=== PATIENT | male | born 1965 | race African-American/Black ===

== ENCOUNTER 2016-05-24 23:02 | Inpatient (IN) | payer OTHER ==
[~2016-05-24] VITALS: Ht 177.8 cm; Wt 85.1 kg
[~2016-05-24 23:02] MED LIST: [UNRECOGNIZED DRUG - CODE] PO
[2016-05-24] MEDS ORDERED: LORA2TAB80 PO (23:31)
[2016-05-24] MEDS ORDERED: CARV3 PO (23:31)
[2016-05-24] MEDS ORDERED: LISI-660 PO (23:31)
[2016-05-24 23:50] LABS: BASOPHILS # (AUTO) 0.01 K/uL (0.00-0.20); BASOPHILS % (AUTO) 0.1 % (0.0-2.0); EOSINOPHILS # (AUTO) 0.05 K/uL (0.00-0.70); EOSINOPHILS % (AUTO) 0.54 % (1.0-6.0); HEMATOCRIT 44.7 % (41-53); HEMOGLOBIN 14.8 g/dL (13.5-17.5); LYMPHOCYTES # (AUTO) 1.9 K/uL (1.0-4.8); LYMPHOCYTES % (AUTO) 21.1 % (22.0-44.0); MEAN CORPUSCULAR HEMOGLOBIN 27.4 pg (26.0-34.0); MEAN CORPUSCULAR HGB CONC 33.1 G/dL (31.0-37.0); MEAN CORPUSCULAR VOLUME 83 fL (80-100); MONOCYTES # (AUTO) 0.6 K/uL (0.1-1.0); MONOCYTES % (AUTO) 6.1 % (2.0-9.0); NEUTROPHILS # (AUTO) 6.5 K/uL (1.8-7.7); NEUTROPHILS % (AUTO) 72.2 % (40.0-70.0); PLATELET COUNT (AUTO) 198 K/uL (150-450); RED BLOOD CELL COUNT(AUTO) 5.39 MIL/uL (4.50-5.90); RED CELL DISTRIBUTION WIDTH 20.4 % (11.5-14.5)
[2016-05-24 23:59] LABS: ANION GAP 11 mmol/L (8-16); CARBON DIOXIDE 24 mmol/L (22-29); CHLORIDE 95 mmol/L (98-107); CREATININE 1.27 mg/dL (0.60-1.30); GLOMERULAR FILTR. RATE CALC > 60 mL/min (>60); SODIUM SERUM 130 mmol/L (136-145); UREA NITROGEN, BLOOD 20 mg/dL (7-18)
[2016-05-25 00:03] LABS: INR 1.1 (0.9-1.1); PROTHROMBIN TIME 11.3 SEC (9.4-11.6)
[2016-05-25 00:04] LABS: RBC MORPHOLOGY COMMENT ABNORMAL RBC MORPH
[2016-05-25 00:05] LABS: ALANINE AMINOTRANSFERASE 37 U/L (12-78); ALBUMIN 3.5 g/dL (3.4-5.0); ASPARTATE AMINOTRANSFERASE 47 U/L (15-37); BILIRUBIN,TOTAL 1.7 mg/dL (0.1-1.0); CREATINE KINASE, TOTAL 74 U/L (39-308); TOTAL PROTEIN, SERUM 8.4 g/dL (6.4-8.2)
[2016-05-25 00:14] LABS: B-TYPE NATRIURETIC PEPTIDE 1600 pg/mL (0-100)
[2016-05-25 00:26] LABS: APPEARANCE,URINE CLEAR (CLEAR); GLUCOSE, URINE (UA) NEGATIVE (NEGATIVE); KETONES,URINE NEGATIVE (NEGATIVE); LEUKOCYTE ESTERASE ,URINE NEGATIVE (NEGATIVE); PH,URINE 5.5 (5.0-8.0); PROTEIN,URINE SEE CONFIRM (NEGATIVE)
[2016-05-25 00:32] LABS: ADD UA MICROSCOPIC YES; OCCULT BLOOD,URINE NEGATIVE (NEGATIVE); SULFOSALICYLIC ACID,URINE 3+ (Negative)
[2016-05-25 00:33] LABS: RBC,URINE 0-2 /HPF (0-2); WBC,URINE 0-2 /HPF (0-5)
[2016-05-25] MEDS ORDERED: NITROGLYCERIN 2% (1 GM=INCH) PACKET TP ONE (00:45)
[2016-05-25] MEDS ORDERED: ASPIRIN 325 MG EC TABLET PO ONE (00:45)
[2016-05-25] MEDS ORDERED: FUROSEMIDE 40 MG/4 ML VIAL IVP ONE (01:00)
[2016-05-25] MEDS ORDERED: LORazepam 2 MG/ML VIAL IVP ONE (01:15)
[2016-05-25] MEDS ORDERED: 0.9% SODIUM CHLORIDE 10 ML SYRINGE IVP PRN (01:45)
[2016-05-25] MEDS ORDERED: ONDANSETRON HCL 4 MG/2 ML VIAL IVP PRN ×2 (01:45→08:45)
[2016-05-25] MEDS ORDERED: ACETAMINOPHEN 325 MG TABLET PO PRN ×2 (01:45→08:45)
[2016-05-25 02:12] VITALS: BP 144/70
[2016-05-25] MEDS ORDERED: INFLUENZA VIRUS VACCINE QVS 2016-17 (3YR+)/PF 60 MCG/0.5 ML SYRINGE IM ONE (04:00)
[2016-05-25] MEDS ORDERED: PNEUMOCOCCAL VACCINE POLYVALENT 0.5 ML VIAL [PPSV23] IM ONE (04:00)
[2016-05-25 04:23] VITALS: BP 125/64
[2016-05-25 07:47] VITALS: BP 126/75
[2016-05-25] MEDS ORDERED: MAGNESIUM HYDROXIDE SUSPENSION 30 ML UDCUP PO PRN (08:45)
[2016-05-25] MEDS ORDERED: BISACODYL 10 MG RECTAL RECTAL SUPPOSITORY PR PRN (08:45)
[2016-05-25] MEDS ORDERED: HYDROCODONE/ACETAMINOPHEN 5-325 MG TABLET PO PRN (08:45)
[2016-05-25] MEDS ORDERED: ZOLPIDEM TARTRATE 5 MG TABLET PO PRN (08:45)
[2016-05-25] MEDS ORDERED: ALBUTEROL SULFATE 2.5 MG/0.5 ML NEB SOLUTION NEB PRN (08:45)
[2016-05-25] MEDS ORDERED: IPRATROPIUM BROMIDE 0.5 MG/2.5 ML NEB SOLUTION NEB PRN (08:45)
[2016-05-25] MEDS: CARVEDILOL 3.125 MG TABLET PO SCH (09:05)
[2016-05-25] MEDS: PANTOPRAZOLE SODIUM 40 MG DR TABLET PO SCH (09:05)
[2016-05-25] MEDS: OxyCODONE HCL/ACETAMINOPHEN 5-325 MG TABLET PO PRN ×3 (09:05→19:56)
[2016-05-25] MEDS: DOCUSATE SODIUM 100 MG CAPSULE PO SCH ×2 (09:05→19:52)
[2016-05-25] MEDS: LISINOPRIL 5 MG TABLET PO SCH (09:05)
[2016-05-25] MEDS: BUMETANIDE 0.25 MG/ML 4 ML VIAL IVP SCH ×2 (10:08→19:57)
[2016-05-25 11:37] VITALS: BP 110/76
[2016-05-25] MEDS: LORazepam 1 MG TABLET PO PRN ×2 (11:43→21:31)
[2016-05-25] MEDS: NICOTINE 21 MG/24 HOUR PATCH TD SCH (11:43)
[2016-05-25] MEDS: HEPARIN SODIUM,PORCINE 5,000 UNITS/ML VIAL SQ SCH ×2 (16:30→23:27)
[2016-05-25 16:36] VITALS: BP 120/78
[2016-05-25 20:17] VITALS: BP 110/72
[2016-05-26] VITALS (7 sets, daily range): BP systolic 102–109; BP diastolic 53–76
[2016-05-26] MEDS: OxyCODONE HCL/ACETAMINOPHEN 5-325 MG TABLET PO PRN ×4 (01:11→20:15)
[2016-05-26 06:25] LABS: BASOPHILS # (AUTO) 0.11 K/uL (0.00-0.20); BASOPHILS % (AUTO) 1.7 % (0.0-2.0); EOSINOPHILS # (AUTO) 0.08 K/uL (0.00-0.70); EOSINOPHILS % (AUTO) 1.21 % (1.0-6.0); HEMATOCRIT 40.7 % (41-53); HEMOGLOBIN 13.5 g/dL (13.5-17.5); LYMPHOCYTES # (AUTO) 1.2 K/uL (1.0-4.8); LYMPHOCYTES % (AUTO) 18.9 % (22.0-44.0); MEAN CORPUSCULAR HEMOGLOBIN 27.8 pg (26.0-34.0); MEAN CORPUSCULAR HGB CONC 33.2 G/dL (31.0-37.0); MEAN CORPUSCULAR VOLUME 84 fL (80-100); MONOCYTES # (AUTO) 0.6 K/uL (0.1-1.0); MONOCYTES % (AUTO) 9.2 % (2.0-9.0); NEUTROPHILS # (AUTO) 4.5 K/uL (1.8-7.7); NEUTROPHILS % (AUTO) 69.1 % (40.0-70.0); PLATELET COUNT (AUTO) 153 K/uL (150-450); RED BLOOD CELL COUNT(AUTO) 4.86 MIL/uL (4.50-5.90); WHITE BLOOD COUNT (AUTO) 6.5 K/uL (4.5-11.0)
[2016-05-26 07:01] LABS: BILIRUBIN,TOTAL 2.1 mg/dL (0.1-1.0); CALCIUM, TOTAL 8.8 mg/dL (8.8-10.5); CREATININE 1.63 mg/dL (0.60-1.30); POTASSIUM 4.8 mmol/L (3.5-5.1); TOTAL PROTEIN, SERUM 7.3 g/dL (6.4-8.2)
[2016-05-26 07:54] LABS: RBC MORPHOLOGY COMMENT ABNORMAL RBC MORPH
[2016-05-26] MEDS: DOCUSATE SODIUM 100 MG CAPSULE PO SCH ×2 (08:19→20:15)
[2016-05-26] MEDS: NICOTINE 21 MG/24 HOUR PATCH TD SCH (08:22)
[2016-05-26] MEDS: HEPARIN SODIUM,PORCINE 5,000 UNITS/ML VIAL SQ SCH ×3 (08:22→23:44)
[2016-05-26] MEDS: LISINOPRIL 5 MG TABLET PO SCH (08:23)
[2016-05-26] MEDS: PANTOPRAZOLE SODIUM 40 MG DR TABLET PO SCH (08:23)
[2016-05-26] MEDS: CARVEDILOL 3.125 MG TABLET PO SCH (08:23)
[2016-05-26] MEDS ORDERED: BUMETANIDE 0.25 MG/ML 4 ML VIAL IVP SCH (09:00)
[2016-05-26] MEDS: LACTOBACILLUS ACIDOPHILUS/BULGARICUS GRANULES PACKET PO SCH ×2 (16:02→20:14)
[2016-05-26] MEDS: LORazepam 1 MG TABLET PO PRN ×2 (16:03→23:44)
[2016-05-27] VITALS (7 sets, daily range): BP systolic 101–112; BP diastolic 58–79
[2016-05-27] MEDS: OxyCODONE HCL/ACETAMINOPHEN 5-325 MG TABLET PO PRN ×3 (04:46→20:18)
[2016-05-27] MEDS: HEPARIN SODIUM,PORCINE 5,000 UNITS/ML VIAL SQ SCH ×3 (08:07→23:42)
[2016-05-27] MEDS: LACTOBACILLUS ACIDOPHILUS/BULGARICUS GRANULES PACKET PO SCH ×3 (08:08→20:18)
[2016-05-27] MEDS: NICOTINE 21 MG/24 HOUR PATCH TD SCH (08:08)
[2016-05-27] MEDS: BUMETANIDE 1 MG TABLET PO SCH (08:08)
[2016-05-27] MEDS: CARVEDILOL 3.125 MG TABLET PO SCH (08:08)
[2016-05-27] MEDS: PANTOPRAZOLE SODIUM 40 MG DR TABLET PO SCH (08:09)
[2016-05-27] MEDS: DOCUSATE SODIUM 100 MG CAPSULE PO SCH ×2 (08:09→20:18)
[2016-05-27] MEDS: LISINOPRIL 5 MG TABLET PO SCH (08:10)
[2016-05-27] MEDS: LORazepam 1 MG TABLET PO PRN (21:50)
[2016-05-28 04:53] VITALS: BP 102/83
[2016-05-28 07:51] VITALS: BP 114/78
[2016-05-28] MEDS: HEPARIN SODIUM,PORCINE 5,000 UNITS/ML VIAL SQ SCH (08:31)
[2016-05-28] MEDS: NICOTINE 21 MG/24 HOUR PATCH TD SCH (08:31)
[2016-05-28] MEDS: PANTOPRAZOLE SODIUM 40 MG DR TABLET PO SCH (08:31)
[2016-05-28] MEDS: LACTOBACILLUS ACIDOPHILUS/BULGARICUS GRANULES PACKET PO SCH (08:31)
[2016-05-28] MEDS: LISINOPRIL 5 MG TABLET PO SCH (08:32)
[2016-05-28] MEDS: BUMETANIDE 1 MG TABLET PO SCH (08:32)
[2016-05-28] MEDS: DOCUSATE SODIUM 100 MG CAPSULE PO SCH (08:32)
[2016-05-28] MEDS: OxyCODONE HCL/ACETAMINOPHEN 5-325 MG TABLET PO PRN (08:32)
[2016-05-28] MEDS: CARVEDILOL 3.125 MG TABLET PO SCH (08:33)
== END 2016-05-28 11:20 | disposition home or self-care (01) | DRG 194 ==
LOC: EMS 23:03 → 5S 05-25 00:06
PROVIDERS: ADMIT Hospitalist; ATTEND Hospitalist
DX: I11.0 Hypertensive heart disease with heart failure (principal); Z99.81 Dependence on supplemental oxygen; E87.1 Hypo-osmolality and hyponatremia; I48.91 Unspecified atrial fibrillation; F17.210 Nicotine dependence, cigarettes, uncomplicated; J44.9 Chronic obstructive pulmonary disease, unspecified; I50.23 Acute on chronic systolic (congestive) heart failure; D64.9 Anemia, unspecified; Z71.6 Tobacco abuse counseling; Z95.810 Presence of automatic (implantable) cardiac defibrillator; Z79.899 Other long term (current) drug therapy; Z28.82 Immunization not carried out because of caregiver refusal
CPT/HCPCS: 87040; 87081; 90471; 93005; 94640; 96374; 96375; 99285; J1644; J1940; J2060; J3490

== ENCOUNTER 2016-11-03 00:28 | Inpatient (IN) | payer OTHER ==
[2016-11-03] VITALS (8 sets, daily range): BP systolic 100–130; BP diastolic 74–88
[~2016-11-03] VITALS: Ht 177.8 cm; Wt 82.6 kg
[~2016-11-03 00:28] MED LIST changes: +CARV3 PO; +FURO40 PO; +LISI-660 PO; +LORA2TAB80 PO; +PROZ10 PO; +SPIR25 PO; +TYL3 PO; +WARF7.5 PO
[2016-11-03] MEDS ORDERED: ASPIRIN 81 MG CHEWABLE TABLET PO ONE (01:00)
[2016-11-03] MEDS ORDERED: LORazepam 2 MG/ML VIAL IVP ONE (01:15)
[2016-11-03] MEDS ORDERED: MORPHINE SULFATE 4 MG/ML SYRINGE IVP ONE (01:15)
[2016-11-03] MEDS ORDERED: ONDANSETRON HCL 4 MG/2 ML VIAL IVP ONE (01:15)
[2016-11-03 01:19] LABS: BASOPHILS # (AUTO) 0.02 K/uL (0.00-0.20); BASOPHILS % (AUTO) 0.3 % (0.0-2.0); EOSINOPHILS # (AUTO) 0.05 K/uL (0.00-0.70); EOSINOPHILS % (AUTO) 0.59 % (1.0-6.0); HEMATOCRIT 39.9 % (41-53); HEMOGLOBIN 12.8 g/dL (13.5-17.5); LYMPHOCYTES % (AUTO) 11.6 % (22.0-44.0); MEAN CORPUSCULAR HEMOGLOBIN 28.6 pg (26.0-34.0); MEAN CORPUSCULAR HGB CONC 32.1 G/dL (31.0-37.0); MEAN CORPUSCULAR VOLUME 89 fL (80-100); MONOCYTES # (AUTO) 0.9 K/uL (0.1-1.0); MONOCYTES % (AUTO) 11.3 % (2.0-9.0); NEUTROPHILS # (AUTO) 6.3 K/uL (1.8-7.7); NEUTROPHILS % (AUTO) 76.3 % (40.0-70.0); PLATELET COUNT (AUTO) 162 K/uL (150-450); RED BLOOD CELL COUNT(AUTO) 4.48 MIL/uL (4.50-5.90); WHITE BLOOD COUNT (AUTO) 8.3 K/uL (4.5-11.0)
[2016-11-03 01:29] LABS: ANION GAP 17 mmol/L (8-16); CALCIUM, TOTAL 8.3 mg/dL (8.8-10.5); CARBON DIOXIDE 20 mmol/L (22-29); CHLORIDE 97 mmol/L (98-107); CREATININE 1.45 mg/dL (0.60-1.30); GLOMERULAR FILTR. RATE CALC > 60 mL/min (>60); POTASSIUM 3.7 mmol/L (3.5-5.1); SODIUM SERUM 134 mmol/L (136-145); UREA NITROGEN, BLOOD 17 mg/dL (7-18)
[2016-11-03 01:35] LABS: CREATINE KINASE, TOTAL 72 U/L (39-308)
[2016-11-03 01:36] LABS: ALANINE AMINOTRANSFERASE 467 U/L (12-78); ALBUMIN 3.5 g/dL (3.4-5.0); ASPARTATE AMINOTRANSFERASE 697 U/L (15-37); BILIRUBIN,TOTAL 2.1 mg/dL (0.1-1.0); TOTAL PROTEIN, SERUM 7.6 g/dL (6.4-8.2)
[2016-11-03 01:40] LABS: B-TYPE NATRIURETIC PEPTIDE 2040 pg/mL (0-100)
[2016-11-03] MEDS ORDERED: FUROSEMIDE 40 MG/4 ML VIAL IVP ONE (01:45)
[2016-11-03] MEDS ORDERED: 0.9% SODIUM CHLORIDE 10 ML SYRINGE IVP PRN (01:45)
[2016-11-03] MEDS ORDERED: ONDANSETRON HCL 4 MG/2 ML VIAL IVP PRN (01:45)
[2016-11-03] MEDS ORDERED: ACETAMINOPHEN 325 MG TABLET PO PRN ×2 (01:45→09:45)
[2016-11-03 01:55] LABS: RBC MORPHOLOGY COMMENT ABNORMAL RBC MORPH
[2016-11-03] MEDS ORDERED: MAGNESIUM HYDROXIDE SUSPENSION 30 ML UDCUP PO PRN (09:45)
[2016-11-03] MEDS ORDERED: ALBUTEROL SULFATE 2.5 MG/0.5 ML NEB SOLUTION NEB PRN (09:45)
[2016-11-03] MEDS: MORPHINE SULFATE 2 MG/ML SYRINGE IVP PRN ×3 (10:09→23:03)
[2016-11-03 10:58] LABS: GLUCOSE, URINE (UA) NEGATIVE (NEGATIVE); KETONES,URINE NEGATIVE (NEGATIVE); LEUKOCYTE ESTERASE ,URINE NEGATIVE (NEGATIVE); OCCULT BLOOD,URINE NEGATIVE (NEGATIVE); PH,URINE 5.5 (5.0-8.0); PROTEIN,URINE POS 1+ (NEGATIVE)
[2016-11-03 11:00] LABS: ADD UA MICROSCOPIC YES; APPEARANCE,URINE HAZY (CLEAR)
[2016-11-03 11:02] LABS: RBC,URINE None Seen /HPF (0-2); WBC,URINE None Seen /HPF (0-5)
[2016-11-03] MEDS ORDERED: LORA1TAB3 PO (11:15)
[2016-11-03] MEDS: ASPIRIN 81 MG CHEWABLE TABLET PO SCH (12:09)
[2016-11-03] MEDS: CARVEDILOL 3.125 MG TABLET PO SCH ×2 (12:09→20:17)
[2016-11-03] MEDS: BUMETANIDE 0.25 MG/ML 4 ML VIAL IVP SCH ×2 (16:27→20:18)
[2016-11-03] MEDS: HEPARIN SODIUM,PORCINE 5,000 UNITS/ML VIAL SQ SCH (16:27)
[2016-11-03] MEDS: LORazepam 0.5 MG TABLET PO PRN (17:39)
[2016-11-03] MEDS: DOCUSATE SODIUM 100 MG CAPSULE PO SCH (20:17)
[2016-11-03] MEDS ORDERED: BUMETANIDE 0.25 MG/ML 4 ML VIAL IVP SCH (21:00)
[2016-11-04] MEDS: LORazepam 0.5 MG TABLET PO PRN (00:50)
[2016-11-04] MEDS: HEPARIN SODIUM,PORCINE 5,000 UNITS/ML VIAL SQ SCH ×3 (00:50→17:45)
[2016-11-04 05:05] VITALS: BP 98/65
[2016-11-04 06:56] LABS: BASOPHILS # (AUTO) 0.03 K/uL (0.00-0.20); BASOPHILS % (AUTO) 0.4 % (0.0-2.0); EOSINOPHILS # (AUTO) 0.12 K/uL (0.00-0.70); EOSINOPHILS % (AUTO) 1.32 % (1.0-6.0); HEMOGLOBIN 12.1 g/dL (13.5-17.5); LYMPHOCYTES % (AUTO) 11.4 % (22.0-44.0); MEAN CORPUSCULAR HEMOGLOBIN 28.8 pg (26.0-34.0); MEAN CORPUSCULAR HGB CONC 32.8 G/dL (31.0-37.0); MEAN CORPUSCULAR VOLUME 88 fL (80-100); MONOCYTES # (AUTO) 1.3 K/uL (0.1-1.0); MONOCYTES % (AUTO) 13.9 % (2.0-9.0); NEUTROPHILS # (AUTO) 6.6 K/uL (1.8-7.7); PLATELET COUNT (AUTO) 136 K/uL (150-450); RED BLOOD CELL COUNT(AUTO) 4.22 MIL/uL (4.50-5.90); RED CELL DISTRIBUTION WIDTH 18.2 % (11.5-14.5)
[2016-11-04 07:04] LABS: ALBUMIN 3.3 g/dL (3.4-5.0); BILIRUBIN,TOTAL 3.8 mg/dL (0.1-1.0); CALCIUM, TOTAL 8.8 mg/dL (8.8-10.5); CREATININE 2.44 mg/dL (0.60-1.30); MAGNESIUM 1.9 mg/dL (1.80-2.40); POTASSIUM 4.3 mmol/L (3.5-5.1); TOTAL PROTEIN, SERUM 7.1 g/dL (6.4-8.2)
[2016-11-04 07:20] VITALS: BP 92/70
[2016-11-04] MEDS: ASPIRIN 81 MG CHEWABLE TABLET PO SCH (08:33)
[2016-11-04] MEDS: DOCUSATE SODIUM 100 MG CAPSULE PO SCH ×2 (08:33→21:45)
[2016-11-04] MEDS: PANTOPRAZOLE SODIUM 40 MG DR TABLET PO SCH (08:33)
[2016-11-04] MEDS: MORPHINE SULFATE 2 MG/ML SYRINGE IVP PRN (08:35)
[2016-11-04] MEDS: BUMETANIDE 0.25 MG/ML 4 ML VIAL IVP SCH (08:48)
[2016-11-04] MEDS: CARVEDILOL 3.125 MG TABLET PO SCH ×2 (09:00→21:45)
[2016-11-04] MEDS ORDERED: LISINOPRIL 5 MG TABLET PO SCH (09:00)
[2016-11-04] MEDS ORDERED: SODIUM CHLORIDE 0.9% 100 ML ONE ×2 (10:56→17:23)
[2016-11-04] MEDS: OxyCODONE HCL/ACETAMINOPHEN 5-325 MG TABLET PO PRN (11:02)
[2016-11-04] MEDS ORDERED: DOPamine HCL 400 MG/D5%-WATER 250 ML IV PRN (11:15)
[2016-11-04 11:25] VITALS: BP 114/69
[2016-11-04] MEDS: PIPERACILLIN SODIUM/TAZOBACTAM 2.25 GM in DEXTROSE 5%-WATER 50 ML IV SCH ×2 (12:09→18:00)
[2016-11-04 15:37] VITALS: BP 101/70
[2016-11-04 19:16] VITALS: BP 129/75
[2016-11-04 23:26] VITALS: BP 112/77
[2016-11-05] MEDS: PIPERACILLIN SODIUM/TAZOBACTAM 2.25 GM in DEXTROSE 5%-WATER 50 ML IV SCH ×2 (01:05→06:27)
[2016-11-05] MEDS: HEPARIN SODIUM,PORCINE 5,000 UNITS/ML VIAL SQ SCH ×2 (01:06→08:32)
[2016-11-05] MEDS: OxyCODONE HCL/ACETAMINOPHEN 5-325 MG TABLET PO PRN ×2 (01:37→11:20)
[2016-11-05 04:29] VITALS: BP 106/75
[2016-11-05 06:51] LABS: BASOPHILS % (AUTO) 0.3 % (0.0-2.0); HEMATOCRIT 39.3 % (41-53); HEMOGLOBIN 12.8 g/dL (13.5-17.5); LYMPHOCYTES # (AUTO) 0.9 K/uL (1.0-4.8); LYMPHOCYTES % (AUTO) 12.1 % (22.0-44.0); MEAN CORPUSCULAR HEMOGLOBIN 28.5 pg (26.0-34.0); MEAN CORPUSCULAR HGB CONC 32.5 G/dL (31.0-37.0); MEAN CORPUSCULAR VOLUME 88 fL (80-100); MONOCYTES # (AUTO) 0.7 K/uL (0.1-1.0); MONOCYTES % (AUTO) 9.5 % (2.0-9.0); NEUTROPHILS # (AUTO) 5.7 K/uL (1.8-7.7); NEUTROPHILS % (AUTO) 75.1 % (40.0-70.0); PLATELET COUNT (AUTO) 155 K/uL (150-450); RED BLOOD CELL COUNT(AUTO) 4.47 MIL/uL (4.50-5.90); RED CELL DISTRIBUTION WIDTH 18.8 % (11.5-14.5); WHITE BLOOD COUNT (AUTO) 7.6 K/uL (4.5-11.0)
[2016-11-05 07:04] VITALS: BP 102/73
[2016-11-05 07:07] LABS: ALBUMIN 3.1 g/dL (3.4-5.0); BILIRUBIN,TOTAL 2.6 mg/dL (0.1-1.0); CALCIUM, TOTAL 8.5 mg/dL (8.8-10.5); CREATININE 1.95 mg/dL (0.60-1.30); MAGNESIUM 1.9 mg/dL (1.80-2.40); POTASSIUM 3.6 mmol/L (3.5-5.1); TOTAL PROTEIN, SERUM 7.4 g/dL (6.4-8.2)
[2016-11-05] MEDS: ASPIRIN 81 MG CHEWABLE TABLET PO SCH (08:32)
[2016-11-05] MEDS: PANTOPRAZOLE SODIUM 40 MG DR TABLET PO SCH (08:32)
[2016-11-05] MEDS: DOCUSATE SODIUM 100 MG CAPSULE PO SCH (08:32)
[2016-11-05 08:48] LABS: RBC MORPHOLOGY COMMENT ABNORMAL RBC MORPH
[2016-11-05] MEDS ORDERED: BUMETANIDE 0.25 MG/ML 4 ML VIAL IVP SCH (09:00)
[2016-11-05] MEDS: CARVEDILOL 3.125 MG TABLET PO SCH (09:00)
[2016-11-05 11:30] VITALS: BP 102/72
[2016-11-05] MEDS ORDERED: PIPERACILLIN/TAZO 3.375 GM/D5W 50 ML IV SCH (12:00)
[2016-11-05 14:43] VITALS: BP 109/64
== END 2016-11-05 16:20 | disposition short-term general hospital (02) ==
LOC: EMS 00:29 → 5N 01:50
PROVIDERS: ADMIT Internal Medicine; ATTEND Internal Medicine
DX: K80.46 Calculus of bile duct with acute and chronic cholecystitis without obstruction (principal); I50.23 Acute on chronic systolic (congestive) heart failure; E11.22 Type 2 diabetes mellitus with diabetic chronic kidney disease; I42.9 Cardiomyopathy, unspecified; K80.66 Calculus of gallbladder and bile duct with acute and chronic cholecystitis without obstruction; R62.7 Adult failure to thrive; I13.0 Hypertensive heart and chronic kidney disease with heart failure and stage 1 through stage 4 chronic kidney disease, or unspecified chronic kidney disease; R07.89 Other chest pain; N18.9 Chronic kidney disease, unspecified; F14.10 Cocaine abuse, uncomplicated; F17.210 Nicotine dependence, cigarettes, uncomplicated; R74.0 Nonspecific elevation of levels of transaminase and lactic acid dehydrogenase [LDH]; I48.91 Unspecified atrial fibrillation; F41.9 Anxiety disorder, unspecified; Z91.19 Patient's noncompliance with other medical treatment and regimen; Z95.0 Presence of cardiac pacemaker
CPT/HCPCS: 74010; 76700; 83735; 93005; 93306; 96374; 96375; 99285; J1265; J1644; J1940; J2060; J2270; J2405; J2543; J3490; J7050; J7060

== ENCOUNTER 2017-02-07 02:26 | Emergency (ER) | payer OTHER ==
[~2017-02-07] VITALS: Ht 177.8 cm; Wt 77.0 kg
[~2017-02-07 02:26] MED LIST changes: +ASPI81 PO; +BUME1TAB17 PO; -CARV3 PO; -FURO40 PO; -LISI-660 PO; -LORA2TAB80 PO; +METO25 PO; -PROZ10 PO; -SPIR25 PO; -TYL3 PO; -WARF7.5 PO; -[UNRECOGNIZED DRUG - CODE] PO
[2017-02-07] MEDS ORDERED: MORPHINE SULFATE 4 MG/ML SYRINGE IVP ONE (02:45)
[2017-02-07] MEDS ORDERED: NITROGLYCERIN 2% (1 GM=INCH) PACKET TP ONE (02:45)
[2017-02-07] MEDS ORDERED: FUROSEMIDE 40 MG/4 ML VIAL IVP ONE ×2 (02:45→04:15)
[2017-02-07 03:03] LABS: BASOPHILS % (AUTO) 0.6 % (0.0-2.0); EOSINOPHILS % (AUTO) 1.6 % (1.0-6.0); HEMATOCRIT 39.1 % (41-53); HEMOGLOBIN 12.7 g/dL (13.5-17.5); LYMPHOCYTES # (AUTO) 1.1 K/uL (1.0-4.8); LYMPHOCYTES % (AUTO) 17.9 % (22.0-44.0); MEAN CORPUSCULAR HEMOGLOBIN 26.3 pg (26.0-34.0); MEAN CORPUSCULAR HGB CONC 32.5 G/dL (31.0-37.0); MEAN CORPUSCULAR VOLUME 81 fL (80-100); MONOCYTES # (AUTO) 0.6 K/uL (0.1-1.0); MONOCYTES % (AUTO) 10.7 % (2.0-9.0); NEUTROPHILS # (AUTO) 4.2 K/uL (1.8-7.7); NEUTROPHILS % (AUTO) 69.2 % (40.0-70.0); PLATELET COUNT (AUTO) 193 K/uL (150-450); RED BLOOD CELL COUNT(AUTO) 4.82 MIL/uL (4.50-5.90); RED CELL DISTRIBUTION WIDTH 22.1 % (11.5-14.5)
[2017-02-07 03:13] LABS: INR 1.1 (0.9-1.1); PROTHROMBIN TIME 11.1 SEC (9.4-11.6)
[2017-02-07 03:14] LABS: ANION GAP 9 mmol/L (8-16); CALCIUM, TOTAL 8.1 mg/dL (8.8-10.5); CARBON DIOXIDE 27 mmol/L (22-29); CHLORIDE 104 mmol/L (98-107); CREATININE 1.25 mg/dL (0.60-1.30); GLOMERULAR FILTR. RATE CALC > 60 mL/min (>60); POTASSIUM 3.5 mmol/L (3.5-5.1); SODIUM SERUM 140 mmol/L (136-145); UREA NITROGEN, BLOOD 15 mg/dL (7-18)
[2017-02-07 03:37] LABS: ALANINE AMINOTRANSFERASE 35 U/L (12-78); ALBUMIN 3.2 g/dL (3.4-5.0); ASPARTATE AMINOTRANSFERASE 47 U/L (15-37); CREATINE KINASE MB 2.6 ng/mL (0-5); CREATINE KINASE, TOTAL 110 U/L (39-308); TOTAL PROTEIN, SERUM 8.1 g/dL (6.4-8.2)
[2017-02-07 03:52] LABS: B-TYPE NATRIURETIC PEPTIDE 940 pg/mL (0-100)
[2017-02-07 04:03] LABS: APPEARANCE,URINE CLEAR (CLEAR); GLUCOSE, URINE (UA) NEGATIVE (NEGATIVE); KETONES,URINE NEGATIVE (NEGATIVE); LEUKOCYTE ESTERASE ,URINE NEGATIVE (NEGATIVE); OCCULT BLOOD,URINE NEGATIVE (NEGATIVE); PH,URINE 6.5 (5.0-8.0); PROTEIN,URINE NEGATIVE (NEGATIVE)
[2017-02-07 04:05] LABS: ADD UA MICROSCOPIC NO
[2017-02-07 04:47] VITALS: BP 126/79
== END 2017-02-07 04:49 | disposition home or self-care (01) ==
LOC: EMS 02:27
DX: I11.0 Hypertensive heart disease with heart failure (principal); I50.9 Heart failure, unspecified; I42.9 Cardiomyopathy, unspecified; I48.91 Unspecified atrial fibrillation; H40.9 Unspecified glaucoma; Z95.0 Presence of cardiac pacemaker; F17.210 Nicotine dependence, cigarettes, uncomplicated; F14.10 Cocaine abuse, uncomplicated; Z79.82 Long term (current) use of aspirin
CPT/HCPCS: 36415; 71010; 80053; 81003; 82550; 82553; 83880; 84484; 85025; 85610; 85730; 93005; 96374; 96375; 96376; 99285; J1940; J2270

== ENCOUNTER 2017-02-19 21:59 | Inpatient (IN) | payer OTHER ==
[~2017-02-19] VITALS: Ht 177.8 cm; Wt 86.9 kg
[2017-02-19] MEDS ORDERED: BISACODYL 10 MG RECTAL RECTAL SUPPOSITORY PR PRN (22:30)
[2017-02-19] MEDS ORDERED: ACETAMINOPHEN 325 MG TABLET PO PRN (22:30)
[2017-02-19] MEDS ORDERED: ALBUTEROL SULFATE 2.5 MG/0.5 ML NEB SOLUTION NEB PRN (22:30)
[2017-02-19 22:40] LABS: BASOPHILS # (AUTO) 0.01 K/uL (0.00-0.20); BASOPHILS % (AUTO) 0.3 % (0.0-2.0); EOSINOPHILS # (AUTO) 0.07 K/uL (0.00-0.70); EOSINOPHILS % (AUTO) 1.66 % (1.0-6.0); HEMATOCRIT 37.4 % (41-53); HEMOGLOBIN 12.2 g/dL (13.5-17.5); LYMPHOCYTES # (AUTO) 0.8 K/uL (1.0-4.8); LYMPHOCYTES % (AUTO) 18.7 % (22.0-44.0); MEAN CORPUSCULAR HEMOGLOBIN 26.9 pg (26.0-34.0); MEAN CORPUSCULAR HGB CONC 32.5 G/dL (31.0-37.0); MEAN CORPUSCULAR VOLUME 83 fL (80-100); MONOCYTES # (AUTO) 0.5 K/uL (0.1-1.0); MONOCYTES % (AUTO) 12.6 % (2.0-9.0); NEUTROPHILS # (AUTO) 2.9 K/uL (1.8-7.7); NEUTROPHILS % (AUTO) 66.8 % (40.0-70.0); PLATELET COUNT (AUTO) 138 K/uL (150-450); RED BLOOD CELL COUNT(AUTO) 4.53 MIL/uL (4.50-5.90); RED CELL DISTRIBUTION WIDTH 24.3 % (11.5-14.5); WHITE BLOOD COUNT (AUTO) 4.3 K/uL (4.5-11.0)
[2017-02-19 22:53] LABS: INR 1.2 (0.9-1.1); PROTHROMBIN TIME 12.7 SEC (9.4-11.6)
[2017-02-19 22:54] LABS: ANION GAP 14 mmol/L (8-16); CALCIUM, TOTAL 8.8 mg/dL (8.8-10.5); CARBON DIOXIDE 22 mmol/L (22-29); CHLORIDE 105 mmol/L (98-107); CREATININE 2.64 mg/dL (0.60-1.30); GLOMERULAR FILTR. RATE CALC 31 mL/min (>60); POTASSIUM 3.4 mmol/L (3.5-5.1); SODIUM SERUM 141 mmol/L (136-145); UREA NITROGEN, BLOOD 29 mg/dL (7-18)
[2017-02-19] MEDS ORDERED: BUMETANIDE 0.25 MG/ML 10 ML VIAL IVP ONE (23:00)
[2017-02-19] MEDS ORDERED: ASPIRIN 81 MG CHEWABLE TABLET PO ONE (23:00)
[2017-02-19 23:01] LABS: B-TYPE NATRIURETIC PEPTIDE 2190 pg/mL (0-100)
[2017-02-19 23:02] LABS: ALANINE AMINOTRANSFERASE 30 U/L (12-78); ALBUMIN 3.1 g/dL (3.4-5.0); ASPARTATE AMINOTRANSFERASE 33 U/L (15-37); CREATINE KINASE, TOTAL 60 U/L (39-308); TOTAL PROTEIN, SERUM 8.1 g/dL (6.4-8.2)
[2017-02-20] VITALS (7 sets, daily range): BP systolic 92–115; BP diastolic 51–76
[2017-02-20] MEDS: OxyCODONE HCL/ACETAMINOPHEN 5-325 MG TABLET PO PRN ×5 (00:04→20:02)
[2017-02-20] MEDS ORDERED: INFLUENZA VIRUS VACCINE QVS 2017-18 (3YR+)/PF 60 MCG/0.5 ML SYRINGE IM ONE (01:45)
[2017-02-20] MEDS ORDERED: PNEUMOCOCCAL VACCINE POLYVALENT 0.5 ML VIAL [PPSV23] IM ONE (01:45)
[2017-02-20] MEDS: ASPIRIN 81 MG CHEWABLE TABLET PO SCH (07:45)
[2017-02-20] MEDS: DOCUSATE SODIUM 100 MG CAPSULE PO SCH ×2 (07:45→20:02)
[2017-02-20] MEDS: HEPARIN SODIUM,PORCINE 5,000 UNITS/ML VIAL SQ SCH ×2 (07:45→20:02)
[2017-02-20] MEDS: PANTOPRAZOLE SODIUM 40 MG DR TABLET PO SCH (07:45)
[2017-02-20 15:45] LABS: APPEARANCE,URINE CLOUDY (CLEAR); GLUCOSE, URINE (UA) NEGATIVE (NEGATIVE); KETONES,URINE TRACE mg/dL (NEGATIVE); LEUKOCYTE ESTERASE ,URINE SMALL (NEGATIVE); OCCULT BLOOD,URINE NEGATIVE (NEGATIVE); PROTEIN,URINE POS 1+ (NEGATIVE)
[2017-02-20 15:46] LABS: ADD UA MICROSCOPIC YES
[2017-02-20] MEDS: METOPROLOL TARTRATE 25 MG TABLET PO SCH (15:57)
[2017-02-20 16:06] LABS: HYALINE CASTS, URINE 26-50 /LPF (None Seen)
[2017-02-20 16:08] LABS: CALCIUM OXALATE CRYSTALS,UR Few /LPF (None Seen)
[2017-02-20 16:12] LABS: SQUAMOUS EPITHELIAL CELL,UR Few /LPF (None Seen); TRANSITIONAL EPI CELLS,URINE Few /LPF (None Seen)
[2017-02-20 16:16] LABS: RBC,URINE 0-2 /HPF (0-2)
[2017-02-20 17:53] LABS: MAGNESIUM 2.2 mg/dL (1.80-2.40); POTASSIUM 4.1 mmol/L (3.5-5.1)
[2017-02-20] MEDS ORDERED: METOPROLOL TARTRATE 25 MG TABLET PO SCH (21:00)
[2017-02-21] VITALS (9 sets, daily range): BP systolic 96–110; BP diastolic 40–72
[2017-02-21] MEDS: OxyCODONE HCL/ACETAMINOPHEN 5-325 MG TABLET PO PRN ×3 (00:01→21:20)
[2017-02-21 06:52] LABS: BASOPHILS % (AUTO) 0.4 % (0.0-2.0); HEMATOCRIT 39.1 % (41-53); HEMOGLOBIN 12.7 g/dL (13.5-17.5); LYMPHOCYTES # (AUTO) 0.7 K/uL (1.0-4.8); LYMPHOCYTES % (AUTO) 12.5 % (22.0-44.0); MEAN CORPUSCULAR HEMOGLOBIN 27.1 pg (26.0-34.0); MEAN CORPUSCULAR HGB CONC 32.4 G/dL (31.0-37.0); MEAN CORPUSCULAR VOLUME 84 fL (80-100); MONOCYTES # (AUTO) 0.5 K/uL (0.1-1.0); MONOCYTES % (AUTO) 8.9 % (2.0-9.0); NEUTROPHILS # (AUTO) 4.2 K/uL (1.8-7.7); NEUTROPHILS % (AUTO) 77.2 % (40.0-70.0); PLATELET COUNT (AUTO) 134 K/uL (150-450); RED BLOOD CELL COUNT(AUTO) 4.67 MIL/uL (4.50-5.90); RED CELL DISTRIBUTION WIDTH 23.9 % (11.5-14.5)
[2017-02-21 07:22] LABS: ALBUMIN 3.4 g/dL (3.4-5.0); BILIRUBIN,TOTAL 3.5 mg/dL (0.1-1.0); CALCIUM, TOTAL 9.1 mg/dL (8.8-10.5); CREATININE 4.27 mg/dL (0.60-1.30); MAGNESIUM 2.3 mg/dL (1.80-2.40); POTASSIUM 4.7 mmol/L (3.5-5.1); TOTAL PROTEIN, SERUM 8.2 g/dL (6.4-8.2)
[2017-02-21 07:27] LABS: WHITE BLOOD COUNT (AUTO) 6.1 K/uL (4.5-11.0)
[2017-02-21] MEDS ORDERED: WATER IV SCH (08:15)
[2017-02-21] MEDS ORDERED: DOBUTAMINE HCL IV SCH (08:15)
[2017-02-21] MEDS ORDERED: DEXTROSE 5% IV SCH (08:15)
[2017-02-21] MEDS: METOPROLOL TARTRATE 25 MG TABLET PO SCH ×2 (08:47→21:15)
[2017-02-21] MEDS: HEPARIN SODIUM,PORCINE 5,000 UNITS/ML VIAL SQ SCH ×2 (08:47→21:15)
[2017-02-21] MEDS: ASPIRIN 81 MG CHEWABLE TABLET PO SCH ×2 (08:47→11:41)
[2017-02-21] MEDS: PANTOPRAZOLE SODIUM 40 MG DR TABLET PO SCH (08:47)
[2017-02-21] MEDS: DOCUSATE SODIUM 100 MG CAPSULE PO SCH ×2 (08:47→21:14)
[2017-02-21] MEDS ORDERED: DEXTROSE 5% IV ONE (09:15)
[2017-02-21] MEDS ORDERED: DOBUTAMINE HCL IV ONE (09:15)
[2017-02-21] MEDS ORDERED: WATER IV ONE (09:15)
[2017-02-21] MEDS ORDERED: WATER IV PRN (09:45)
[2017-02-21] MEDS ORDERED: DOBUTAMINE HCL IV PRN (09:45)
[2017-02-21] MEDS ORDERED: DEXTROSE 5% IV PRN (09:45)
[2017-02-21 10:02] LABS: RBC MORPHOLOGY COMMENT ABNORMAL RBC MORPH
[2017-02-21] MEDS: SODIUM BICARBONATE 650 MG TABLET PO SCH ×2 (11:00→22:40)
[2017-02-21] MEDS: BUMETANIDE 1 MG TABLET PO SCH ×2 (11:41→21:16)
[2017-02-21] MEDS ORDERED: ONDANSETRON HCL 4 MG/2 ML VIAL IVP PRN (20:00)
[2017-02-22] VITALS (8 sets, daily range): BP systolic 96–123; BP diastolic 45–89
[2017-02-22 06:00] LABS: BASOPHILS % (AUTO) 0.5 % (0.0-2.0); EOSINOPHILS % (AUTO) 1.3 % (1.0-6.0); HEMATOCRIT 36.3 % (41-53); HEMOGLOBIN 11.6 g/dL (13.5-17.5); LYMPHOCYTES # (AUTO) 0.6 K/uL (1.0-4.8); LYMPHOCYTES % (AUTO) 8.6 % (22.0-44.0); MEAN CORPUSCULAR HGB CONC 32.1 G/dL (31.0-37.0); MEAN CORPUSCULAR VOLUME 84 fL (80-100); MONOCYTES # (AUTO) 0.7 K/uL (0.1-1.0); MONOCYTES % (AUTO) 10.7 % (2.0-9.0); NEUTROPHILS # (AUTO) 5.1 K/uL (1.8-7.7); NEUTROPHILS % (AUTO) 78.9 % (40.0-70.0); PLATELET COUNT (AUTO) 138 K/uL (150-450); RED BLOOD CELL COUNT(AUTO) 4.31 MIL/uL (4.50-5.90); RED CELL DISTRIBUTION WIDTH 23.7 % (11.5-14.5); WHITE BLOOD COUNT (AUTO) 6.4 K/uL (4.5-11.0)
[2017-02-22 06:27] LABS: CALCIUM, TOTAL 8.7 mg/dL (8.8-10.5); CREATININE 4.65 mg/dL (0.60-1.30); POTASSIUM 3.7 mmol/L (3.5-5.1)
[2017-02-22 08:49] LABS: RBC MORPHOLOGY COMMENT ABNORMAL RBC MORPH
[2017-02-22] MEDS ORDERED: BUMETANIDE 0.25 MG/ML 4 ML VIAL IVP SCH (09:00)
[2017-02-22] MEDS: ASPIRIN 81 MG CHEWABLE TABLET PO SCH ×2 (09:00→09:12)
[2017-02-22] MEDS: METOPROLOL TARTRATE 25 MG TABLET PO SCH ×2 (09:11→20:26)
[2017-02-22] MEDS: DOCUSATE SODIUM 100 MG CAPSULE PO SCH ×2 (09:11→20:26)
[2017-02-22] MEDS: SODIUM BICARBONATE 650 MG TABLET PO SCH ×2 (09:11→20:26)
[2017-02-22] MEDS: PANTOPRAZOLE SODIUM 40 MG DR TABLET PO SCH (09:11)
[2017-02-22] MEDS: OxyCODONE HCL/ACETAMINOPHEN 5-325 MG TABLET PO PRN ×3 (09:12→21:10)
[2017-02-22] MEDS: HEPARIN SODIUM,PORCINE 5,000 UNITS/ML VIAL SQ SCH ×2 (09:12→20:25)
[2017-02-22] MEDS ORDERED: BUMETANIDE 10 MG in DEXTROSE 5%-WATER 60 ML IV SCH (21:00)
[2017-02-22] MEDS: BUMETANIDE 0.25 MG/ML 4 ML VIAL IVP SCH (21:05)
[2017-02-23] VITALS (7 sets, daily range): BP systolic 94–138; BP diastolic 66–84
[2017-02-23 05:46] LABS: BASOPHILS # (AUTO) 0.02 K/uL (0.00-0.20); BASOPHILS % (AUTO) 0.3 % (0.0-2.0); EOSINOPHILS # (AUTO) 0.05 K/uL (0.00-0.70); EOSINOPHILS % (AUTO) 0.71 % (1.0-6.0); HEMATOCRIT 36.7 % (41-53); HEMOGLOBIN 11.7 g/dL (13.5-17.5); LYMPHOCYTES # (AUTO) 0.6 K/uL (1.0-4.8); LYMPHOCYTES % (AUTO) 7.8 % (22.0-44.0); MEAN CORPUSCULAR HEMOGLOBIN 26.6 pg (26.0-34.0); MEAN CORPUSCULAR HGB CONC 31.8 G/dL (31.0-37.0); MEAN CORPUSCULAR VOLUME 84 fL (80-100); MONOCYTES # (AUTO) 0.7 K/uL (0.1-1.0); MONOCYTES % (AUTO) 9.5 % (2.0-9.0); NEUTROPHILS # (AUTO) 6.2 K/uL (1.8-7.7); NEUTROPHILS % (AUTO) 81.7 % (40.0-70.0); PLATELET COUNT (AUTO) 115 K/uL (150-450); RED BLOOD CELL COUNT(AUTO) 4.39 MIL/uL (4.50-5.90); RED CELL DISTRIBUTION WIDTH 23.6 % (11.5-14.5); WHITE BLOOD COUNT (AUTO) 7.6 K/uL (4.5-11.0)
[2017-02-23 05:58] LABS: ALBUMIN 3.3 g/dL (3.4-5.0); CALCIUM, TOTAL 8.7 mg/dL (8.8-10.5); CREATININE 3.43 mg/dL (0.60-1.30); MAGNESIUM 2.2 mg/dL (1.80-2.40); POTASSIUM 3.9 mmol/L (3.5-5.1); TOTAL PROTEIN, SERUM 7.9 g/dL (6.4-8.2)
[2017-02-23] MEDS: OxyCODONE HCL/ACETAMINOPHEN 5-325 MG TABLET PO PRN ×3 (06:38→20:56)
[2017-02-23] MEDS: PANTOPRAZOLE SODIUM 40 MG DR TABLET PO SCH (08:02)
[2017-02-23] MEDS: HEPARIN SODIUM,PORCINE 5,000 UNITS/ML VIAL SQ SCH ×2 (08:02→20:57)
[2017-02-23] MEDS: ASPIRIN 81 MG CHEWABLE TABLET PO SCH (08:02)
[2017-02-23] MEDS: SODIUM BICARBONATE 650 MG TABLET PO SCH ×2 (08:02→20:56)
[2017-02-23] MEDS: METOPROLOL TARTRATE 25 MG TABLET PO SCH ×2 (08:02→20:57)
[2017-02-23] MEDS: BUMETANIDE 0.25 MG/ML 4 ML VIAL IVP SCH ×2 (08:03→21:09)
[2017-02-23] MEDS: DOCUSATE SODIUM 100 MG CAPSULE PO SCH ×2 (08:03→20:57)
[2017-02-23] MEDS: MUPIROCIN CALCIUM 2% 22 GM OINTMENT NASAL SCH (23:40)
[2017-02-24 00:14] VITALS: BP 111/79
[2017-02-24] MEDS: OxyCODONE HCL/ACETAMINOPHEN 5-325 MG TABLET PO PRN ×4 (03:02→21:59)
[2017-02-24 04:38] VITALS: BP 118/85
[2017-02-24 06:37] LABS: ALBUMIN 3.2 g/dL (3.4-5.0); BILIRUBIN,TOTAL 2.7 mg/dL (0.1-1.0); CREATININE 2.27 mg/dL (0.60-1.30); MAGNESIUM 1.9 mg/dL (1.80-2.40); POTASSIUM 4.3 mmol/L (3.5-5.1); TOTAL PROTEIN, SERUM 7.6 g/dL (6.4-8.2)
[2017-02-24 06:48] LABS: BASOPHILS % (AUTO) 0.2 % (0.0-2.0); EOSINOPHILS % (AUTO) 1.5 % (1.0-6.0); HEMATOCRIT 35.4 % (41-53); HEMOGLOBIN 11.4 g/dL (13.5-17.5); LYMPHOCYTES # (AUTO) 0.8 K/uL (1.0-4.8); LYMPHOCYTES % (AUTO) 12.5 % (22.0-44.0); MEAN CORPUSCULAR HGB CONC 32.2 G/dL (31.0-37.0); MEAN CORPUSCULAR VOLUME 84 fL (80-100); MONOCYTES # (AUTO) 0.9 K/uL (0.1-1.0); MONOCYTES % (AUTO) 15.4 % (2.0-9.0); NEUTROPHILS # (AUTO) 4.3 K/uL (1.8-7.7); NEUTROPHILS % (AUTO) 70.4 % (40.0-70.0); RED BLOOD CELL COUNT(AUTO) 4.22 MIL/uL (4.50-5.90); RED CELL DISTRIBUTION WIDTH 23.7 % (11.5-14.5); WHITE BLOOD COUNT (AUTO) 6.1 K/uL (4.5-11.0)
[2017-02-24 07:40] VITALS: BP 124/85
[2017-02-24 08:39] LABS: PLATELET COUNT (AUTO) 122 K/uL (150-450)
[2017-02-24] MEDS: ASPIRIN 81 MG CHEWABLE TABLET PO SCH (09:57)
[2017-02-24] MEDS: METOPROLOL TARTRATE 25 MG TABLET PO SCH ×2 (09:58→20:08)
[2017-02-24] MEDS: PANTOPRAZOLE SODIUM 40 MG DR TABLET PO SCH (09:58)
[2017-02-24] MEDS: SODIUM BICARBONATE 650 MG TABLET PO SCH ×2 (09:58→20:07)
[2017-02-24] MEDS: DOCUSATE SODIUM 100 MG CAPSULE PO SCH ×2 (09:58→20:07)
[2017-02-24] MEDS: MUPIROCIN CALCIUM 2% 22 GM OINTMENT NASAL SCH ×2 (09:59→20:08)
[2017-02-24] MEDS: HEPARIN SODIUM,PORCINE 5,000 UNITS/ML VIAL SQ SCH ×2 (09:59→20:07)
[2017-02-24] MEDS: BUMETANIDE 0.25 MG/ML 4 ML VIAL IVP SCH ×2 (10:00→20:08)
[2017-02-24 11:20] VITALS: BP 101/61
[2017-02-24 15:37] VITALS: BP 102/66
[2017-02-24 19:56] VITALS: BP 116/73
[2017-02-24] MEDS: ALLOPURINOL 100 MG TABLET PO SCH (22:02)
[2017-02-25 00:07] VITALS: BP 111/79
[2017-02-25 04:26] VITALS: BP 122/76
[2017-02-25] MEDS: OxyCODONE HCL/ACETAMINOPHEN 5-325 MG TABLET PO PRN ×3 (04:46→21:06)
[2017-02-25 06:16] LABS: CALCIUM, TOTAL 8.8 mg/dL (8.8-10.5); CREATININE 1.7 mg/dL (0.60-1.30)
[2017-02-25 07:20] VITALS: BP 116/72
[2017-02-25] MEDS: HEPARIN SODIUM,PORCINE 5,000 UNITS/ML VIAL SQ SCH ×2 (08:46→21:04)
[2017-02-25] MEDS: PANTOPRAZOLE SODIUM 40 MG DR TABLET PO SCH (08:46)
[2017-02-25] MEDS: METOPROLOL TARTRATE 25 MG TABLET PO SCH ×2 (08:46→21:04)
[2017-02-25] MEDS: ASPIRIN 81 MG CHEWABLE TABLET PO SCH (08:46)
[2017-02-25] MEDS: DOCUSATE SODIUM 100 MG CAPSULE PO SCH ×2 (08:46→21:04)
[2017-02-25] MEDS: SODIUM BICARBONATE 650 MG TABLET PO SCH ×2 (08:47→21:03)
[2017-02-25] MEDS: ALLOPURINOL 100 MG TABLET PO SCH (08:47)
[2017-02-25] MEDS: MUPIROCIN CALCIUM 2% 22 GM OINTMENT NASAL SCH ×2 (08:47→21:03)
[2017-02-25] MEDS: BUMETANIDE 0.25 MG/ML 4 ML VIAL IVP SCH (08:48)
[2017-02-25 11:04] VITALS: BP 115/78
[2017-02-25 16:03] VITALS: BP 113/70
[2017-02-25] MEDS: BUMETANIDE 1 MG TABLET PO SCH (21:04)
[2017-02-25 21:23] VITALS: BP 120/77
[2017-02-26 01:14] VITALS: BP 108/79
[2017-02-26] MEDS: OxyCODONE HCL/ACETAMINOPHEN 5-325 MG TABLET PO PRN ×2 (02:11→08:50)
[2017-02-26 05:00] VITALS: BP 123/71
[2017-02-26 05:33] VITALS: BP 123/71
[2017-02-26 07:54] VITALS: BP 124/77
[2017-02-26] MEDS: METOPROLOL TARTRATE 25 MG TABLET PO SCH (08:49)
[2017-02-26] MEDS: DOCUSATE SODIUM 100 MG CAPSULE PO SCH (08:50)
[2017-02-26] MEDS: BUMETANIDE 1 MG TABLET PO SCH (08:50)
[2017-02-26] MEDS: ALLOPURINOL 100 MG TABLET PO SCH (08:50)
[2017-02-26] MEDS: SODIUM BICARBONATE 650 MG TABLET PO SCH (08:50)
[2017-02-26] MEDS: PANTOPRAZOLE SODIUM 40 MG DR TABLET PO SCH (08:51)
[2017-02-26] MEDS: HEPARIN SODIUM,PORCINE 5,000 UNITS/ML VIAL SQ SCH (08:51)
[2017-02-26] MEDS: ASPIRIN 81 MG CHEWABLE TABLET PO SCH (08:51)
[2017-02-26] MEDS: MUPIROCIN CALCIUM 2% 22 GM OINTMENT NASAL SCH (08:56)
[2017-02-26 11:42] VITALS: BP 105/79
[2017-02-26 15:36] VITALS: BP 115/75
[2017-02-26] MEDS ORDERED: BUME1TAB17 PO (18:08)
[2017-02-26] MEDS ORDERED: ASPI-1188 PO (18:08)
[2017-02-26] MEDS ORDERED: ALLO100T PO (18:08)
[2017-02-26] MEDS ORDERED: SPIR25 PO (18:09)
[2017-02-26] MEDS ORDERED: METO25 PO (18:09)
[2017-02-26] MEDS ORDERED: TRAM50TA4 PO (18:09)
[2017-02-26] MEDS ORDERED: ALPR0.255 PO (18:10)
== END 2017-02-26 18:30 | disposition home or self-care (01) | DRG 194 ==
LOC: EMS 22:00 → 5S 22:30 → ICU 02-21 10:15 → 5S 02-23 15:15
PROVIDERS: ADMIT Internal Medicine; ATTEND Internal Medicine
DX: I13.0 Hypertensive heart and chronic kidney disease with heart failure and stage 1 through stage 4 chronic kidney disease, or unspecified chronic kidney disease (principal); R57.0 Cardiogenic shock; I47.2 Ventricular tachycardia; N17.9 Acute kidney failure, unspecified; E87.2 Acidosis; N18.3 Chronic kidney disease, stage 3 (moderate); I27.20 Pulmonary hypertension, unspecified; I07.1 Rheumatic tricuspid insufficiency; I42.9 Cardiomyopathy, unspecified; I48.91 Unspecified atrial fibrillation; J44.9 Chronic obstructive pulmonary disease, unspecified; F17.210 Nicotine dependence, cigarettes, uncomplicated; I34.0 Nonrheumatic mitral (valve) insufficiency; I50.41 Acute combined systolic (congestive) and diastolic (congestive) heart failure; I70.0 Atherosclerosis of aorta; K64.9 Unspecified hemorrhoids; F14.10 Cocaine abuse, uncomplicated; H40.9 Unspecified glaucoma; Z80.0 Family history of malignant neoplasm of digestive organs; Z95.810 Presence of automatic (implantable) cardiac defibrillator; Z79.82 Long term (current) use of aspirin
CPT/HCPCS: 80307; 82570; 83735; 84132; 84156; 84300; 84540; 87081; 87086; 93005; 93308; 96374; 99291; J1250; J1644; J2405; J3490; J7060

== ENCOUNTER 2017-03-05 01:58 | Emergency (ER) | payer OTHER ==
[~2017-03-05] VITALS: Ht 177.8 cm; Wt 87.7 kg
[~2017-03-05 01:58] MED LIST changes: +ALLO100T PO; +ALPR0.255 PO; +ASPI-1188 PO; -ASPI81 PO; +SPIR25 PO; +TRAM50TA4 PO
[2017-03-05] MEDS ORDERED: NITROGLYCERIN 2% (1 GM=INCH) PACKET TP ONE (03:00)
[2017-03-05] MEDS ORDERED: BUMETANIDE 0.25 MG/ML 4 ML VIAL IVP ONE (03:00)
[2017-03-05] MEDS ORDERED: MORPHINE SULFATE 4 MG/ML SYRINGE IVP ONE ×2 (03:00→05:15)
[2017-03-05] MEDS ORDERED: ONDANSETRON HCL 4 MG/2 ML VIAL IVP ONE (03:00)
[2017-03-05 03:03] LABS: BASOPHILS % (AUTO) 0.8 % (0.0-2.0); EOSINOPHILS % (AUTO) 1.7 % (1.0-6.0); HEMATOCRIT 39.1 % (41-53); HEMOGLOBIN 12.7 g/dL (13.5-17.5); LYMPHOCYTES # (AUTO) 0.9 K/uL (1.0-4.8); LYMPHOCYTES % (AUTO) 11.4 % (22.0-44.0); MEAN CORPUSCULAR HEMOGLOBIN 26.3 pg (26.0-34.0); MEAN CORPUSCULAR HGB CONC 32.4 G/dL (31.0-37.0); MEAN CORPUSCULAR VOLUME 81 fL (80-100); MONOCYTES # (AUTO) 0.4 K/uL (0.1-1.0); MONOCYTES % (AUTO) 4.8 % (2.0-9.0); NEUTROPHILS # (AUTO) 6.7 K/uL (1.8-7.7); NEUTROPHILS % (AUTO) 81.3 % (40.0-70.0); PLATELET COUNT (AUTO) 156 K/uL (150-450); RED BLOOD CELL COUNT(AUTO) 4.82 MIL/uL (4.50-5.90)
[2017-03-05 03:15] LABS: INR 1.2 (0.9-1.1); PROTHROMBIN TIME 12.7 SEC (9.4-11.6)
[2017-03-05] MEDS ORDERED: ASPIRIN 325 MG EC TABLET PO ONE (03:15)
[2017-03-05 03:22] LABS: ALANINE AMINOTRANSFERASE 40 U/L (12-78); ALBUMIN 3.1 g/dL (3.4-5.0); ALKALINE PHOSPHATASE 327 U/L (46-116); ANION GAP 11 mmol/L (8-16); ASPARTATE AMINOTRANSFERASE 63 U/L (15-37); BILIRUBIN,TOTAL 4.1 mg/dL (0.1-1.0); CALCIUM, TOTAL 8.7 mg/dL (8.8-10.5); CARBON DIOXIDE 26 mmol/L (22-29); CHLORIDE 98 mmol/L (98-107); CREATINE KINASE, TOTAL 66 U/L (39-308); GLOMERULAR FILTR. RATE CALC > 60 mL/min (>60); GLUCOSE,RANDOM 77 mg/dL (70-110); SODIUM SERUM 135 mmol/L (136-145); TOTAL PROTEIN, SERUM 8.3 g/dL (6.4-8.2); UREA NITROGEN, BLOOD 15 mg/dL (7-18)
[2017-03-05 03:29] LABS: PLATELET MORPHOLOGY COMMENT GIANT PLTS PRESENT
[2017-03-05 03:30] LABS: B-TYPE NATRIURETIC PEPTIDE 3010 pg/mL (0-100)
[2017-03-05 03:59] LABS: APPEARANCE,URINE CLEAR (CLEAR); GLUCOSE, URINE (UA) NEGATIVE (NEGATIVE); KETONES,URINE NEGATIVE (NEGATIVE); LEUKOCYTE ESTERASE ,URINE NEGATIVE (NEGATIVE); NITRATE,URINE NEGATIVE (NEGATIVE); OCCULT BLOOD,URINE NEGATIVE (NEGATIVE); PROTEIN,URINE POS 1+ (NEGATIVE)
[2017-03-05 04:00] LABS: BILIRUBIN,URINE PRELIM. POSITIVE (NEGATIVE)
[2017-03-05] MEDS ORDERED: POTASSIUM CHLORIDE 20 MEQ ER TABLET PO ONE (05:15)
[2017-03-05 06:10] VITALS: BP 127/69
== END 2017-03-05 06:45 | disposition home or self-care (01) ==
LOC: EMS 01:59
DX: I42.9 Cardiomyopathy, unspecified (principal); I11.0 Hypertensive heart disease with heart failure; I50.9 Heart failure, unspecified; I48.91 Unspecified atrial fibrillation; F17.210 Nicotine dependence, cigarettes, uncomplicated
CPT/HCPCS: 36415; 71010; 80053; 81003; 82550; 83880; 84484; 85025; 85610; 85730; 93005; 96374; 96375; 96376; 99291; J2270; J2405; J3490; 99285

== ENCOUNTER 2017-03-08 22:36 | Inpatient (IN) | payer OTHER ==
[~2017-03-08] VITALS: Ht 177.8 cm; Wt 86.4 kg
[2017-03-08 23:10] LABS: BASOPHILS % (AUTO) 0.1 % (0.0-2.0); EOSINOPHILS % (AUTO) 0.3 % (1.0-6.0); HEMATOCRIT 36.1 % (41-53); HEMOGLOBIN 11.7 g/dL (13.5-17.5); LYMPHOCYTES # (AUTO) 0.6 K/uL (1.0-4.8); MEAN CORPUSCULAR HEMOGLOBIN 26.3 pg (26.0-34.0); MEAN CORPUSCULAR HGB CONC 32.5 G/dL (31.0-37.0); MEAN CORPUSCULAR VOLUME 81 fL (80-100); MONOCYTES # (AUTO) 1.1 K/uL (0.1-1.0); MONOCYTES % (AUTO) 9.6 % (2.0-9.0); NEUTROPHILS # (AUTO) 9.8 K/uL (1.8-7.7); PLATELET COUNT (AUTO) 228 K/uL (150-450); RED BLOOD CELL COUNT(AUTO) 4.47 MIL/uL (4.50-5.90); RED CELL DISTRIBUTION WIDTH 22.1 % (11.5-14.5); WHITE BLOOD COUNT (AUTO) 11.6 K/uL (4.5-11.0)
[2017-03-08] MEDS ORDERED: BUMETANIDE 0.25 MG/ML 4 ML VIAL IVP ONE (23:15)
[2017-03-08] MEDS ORDERED: NITROGLYCERIN 2% (1 GM=INCH) PACKET TP ONE (23:15)
[2017-03-08 23:21] LABS: ANION GAP 9 mmol/L (8-16); CALCIUM, TOTAL 8.5 mg/dL (8.8-10.5); CARBON DIOXIDE 25 mmol/L (22-29); CHLORIDE 97 mmol/L (98-107); CREATININE 1.63 mg/dL (0.60-1.30); GLOMERULAR FILTR. RATE CALC 54 mL/min (>60); POTASSIUM 3.9 mmol/L (3.5-5.1); SODIUM SERUM 131 mmol/L (136-145); UREA NITROGEN, BLOOD 33 mg/dL (7-18)
[2017-03-08 23:22] LABS: INR 1.4 (0.9-1.1); PROTHROMBIN TIME 15.2 SEC (9.4-11.6)
[2017-03-08 23:33] LABS: B-TYPE NATRIURETIC PEPTIDE 2200 pg/mL (0-100)
[2017-03-08 23:36] LABS: RBC MORPHOLOGY COMMENT ABNORMAL RBC MORPH
[2017-03-08 23:46] LABS: ALANINE AMINOTRANSFERASE 121 U/L (12-78); ALBUMIN 2.9 g/dL (3.4-5.0); ASPARTATE AMINOTRANSFERASE 185 U/L (15-37); BILIRUBIN,TOTAL 6.2 mg/dL (0.1-1.0); CREATINE KINASE MB 4.7 ng/mL (0-5); CREATINE KINASE, TOTAL 164 U/L (39-308)
[2017-03-08 23:49] LABS: APPEARANCE,URINE CLEAR (CLEAR); GLUCOSE, URINE (UA) NEGATIVE (NEGATIVE); KETONES,URINE NEGATIVE (NEGATIVE); LEUKOCYTE ESTERASE ,URINE NEGATIVE (NEGATIVE); OCCULT BLOOD,URINE NEGATIVE (NEGATIVE); PROTEIN,URINE NEGATIVE (NEGATIVE)
[2017-03-08 23:54] LABS: ADD UA MICROSCOPIC NO
[2017-03-09] MEDS ORDERED: ASPIRIN 81 MG CHEWABLE TABLET PO ONE
[2017-03-09] MEDS ORDERED: LORazepam 2 MG/ML VIAL IVP ONE (00:45)
[2017-03-09 01:33] VITALS: BP 111/76
[2017-03-09] MEDS: ACETAMINOPHEN 325 MG TABLET PO PRN ×3 (03:46→19:37)
[2017-03-09 04:52] VITALS: BP 123/88
[2017-03-09] MEDS ORDERED: BISACODYL 10 MG RECTAL RECTAL SUPPOSITORY PR PRN (06:30)
[2017-03-09] MEDS ORDERED: ONDANSETRON HCL 4 MG/2 ML VIAL IVP PRN (06:30)
[2017-03-09] MEDS ORDERED: IPRATROPIUM BROMIDE 0.5 MG/2.5 ML NEB SOLUTION NEB PRN (06:30)
[2017-03-09] MEDS ORDERED: MAGNESIUM HYDROXIDE SUSPENSION 30 ML UDCUP PO PRN (06:30)
[2017-03-09] MEDS ORDERED: 0.9% SODIUM CHLORIDE 10 ML SYRINGE IVP PRN (06:30)
[2017-03-09] MEDS ORDERED: ALBUTEROL SULFATE 2.5 MG/0.5 ML NEB SOLUTION NEB PRN (06:30)
[2017-03-09] MEDS ORDERED: PNEUMOCOCCAL VACCINE POLYVALENT 0.5 ML VIAL [PPSV23] IM ONE (07:00)
[2017-03-09] MEDS ORDERED: INFLUENZA VIRUS VACCINE QVS 2017-18 (3YR+)/PF 60 MCG/0.5 ML SYRINGE IM ONE (07:00)
[2017-03-09 07:33] LABS: EOSINOPHILS # (AUTO) 0.05 K/uL (0.00-0.70); EOSINOPHILS % (AUTO) 0.52 % (1.0-6.0); HEMATOCRIT 34.3 % (41-53); HEMOGLOBIN 11.1 g/dL (13.5-17.5); LYMPHOCYTES # (AUTO) 0.6 K/uL (1.0-4.8); MEAN CORPUSCULAR HEMOGLOBIN 26.6 pg (26.0-34.0); MEAN CORPUSCULAR HGB CONC 32.4 G/dL (31.0-37.0); MEAN CORPUSCULAR VOLUME 82 fL (80-100); MONOCYTES # (AUTO) 0.5 K/uL (0.1-1.0); NEUTROPHILS # (AUTO) 9.2 K/uL (1.8-7.7); PLATELET COUNT (AUTO) 196 K/uL (150-450); RED BLOOD CELL COUNT(AUTO) 4.18 MIL/uL (4.50-5.90); WHITE BLOOD COUNT (AUTO) 10.4 K/uL (4.5-11.0)
[2017-03-09 07:40] LABS: NEUTROPHILS % (AUTO) 88.5 % (40.0-70.0)
[2017-03-09 07:42] VITALS: BP 114/71
[2017-03-09 07:47] LABS: CALCIUM, TOTAL 8.4 mg/dL (8.8-10.5); CREATININE 1.55 mg/dL (0.60-1.30); POTASSIUM 3.5 mmol/L (3.5-5.1)
[2017-03-09 07:53] LABS: ALBUMIN 2.8 g/dL (3.4-5.0); BILIRUBIN,TOTAL 5.6 mg/dL (0.1-1.0); MAGNESIUM 1.7 mg/dL (1.80-2.40); TOTAL PROTEIN, SERUM 7.7 g/dL (6.4-8.2)
[2017-03-09] MEDS: DOCUSATE SODIUM 100 MG CAPSULE PO SCH ×2 (08:48→21:28)
[2017-03-09] MEDS: ASPIRIN 81 MG EC TABLET PO SCH (08:48)
[2017-03-09] MEDS: HEPARIN SODIUM,PORCINE 5,000 UNITS/ML VIAL SQ SCH ×2 (08:48→21:28)
[2017-03-09] MEDS: PANTOPRAZOLE SODIUM 40 MG DR TABLET PO SCH (08:48)
[2017-03-09] MEDS: BUMETANIDE 0.25 MG/ML 4 ML VIAL IVP SCH ×2 (08:48→21:27)
[2017-03-09] MEDS: ALLOPURINOL 100 MG TABLET PO SCH (08:48)
[2017-03-09] MEDS: SPIRONOLACTONE 25 MG TABLET PO SCH (09:00)
[2017-03-09 09:22] LABS: RBC MORPHOLOGY COMMENT ABNORMAL RBC MORPH
[2017-03-09 11:51] VITALS: BP 107/68
[2017-03-09 16:05] VITALS: BP 114/89
[2017-03-09 20:03] VITALS: BP 140/77
[2017-03-09] MEDS ORDERED: HALOPERIDOL LACTATE 5 MG/ML VIAL IM PRN (20:45)
[2017-03-09] MEDS: MAGNESIUM OXIDE 400 MG TABLET PO SCH (21:28)
[2017-03-09] MEDS: ALPRAZolam 0.25 MG TABLET PO PRN (23:36)
[2017-03-10 00:01] VITALS: BP 145/73
[2017-03-10] MEDS: TraMADol HCL 50 MG TABLET PO PRN ×2 (00:38→21:22)
[2017-03-10] MEDS ORDERED: 0.9% SODIUM CHLORIDE 5 ML NEB SOLUTION NEB ONE (00:50)
[2017-03-10 01:24] LABS: ABG A-A DIFF O2 125.2 mmHg (10-20.0); ABG BASE EXCESS -7.3 mmol/L (-2.0-3.0); ABG HCO3 19.9 mmol/L (22.0-26.0); ABG OXYHEMOGLOBIN 92.1 % (94.0-100.0); ABG PCO2 24 mmHg (35-45); ABG PH 7.453 (7.35-7.450); ALLEN TEST, BLOOD GAS Positive; TEMPERATURE, FAHRENHEIT, BG 98.6 FAHREN (96.0-98.6)
[2017-03-10] MEDS: SPIRONOLACTONE 25 MG TABLET PO SCH (09:00)
[2017-03-10] MEDS: BUMETANIDE 0.25 MG/ML 4 ML VIAL IVP SCH ×2 (10:07→21:22)
[2017-03-10] MEDS: MAGNESIUM OXIDE 400 MG TABLET PO SCH (10:08)
[2017-03-10] MEDS: DOCUSATE SODIUM 100 MG CAPSULE PO SCH ×2 (10:08→21:22)
[2017-03-10] MEDS: ALLOPURINOL 100 MG TABLET PO SCH (10:08)
[2017-03-10] MEDS: HEPARIN SODIUM,PORCINE 5,000 UNITS/ML VIAL SQ SCH ×2 (10:08→21:21)
[2017-03-10] MEDS: PANTOPRAZOLE SODIUM 40 MG DR TABLET PO SCH (10:08)
[2017-03-10] MEDS: ASPIRIN 81 MG EC TABLET PO SCH (10:09)
[2017-03-10 10:29] VITALS: BP 112/71
[2017-03-10 11:50] VITALS: BP 111/68
[2017-03-10 15:11] VITALS: BP 106/71
[2017-03-10] MEDS ORDERED: MethylPREDNISolone SOD SUCC 125 MG/2 ML VIAL IVP SCH (16:00)
[2017-03-10 19:49] VITALS: BP 105/70
[2017-03-10] MEDS: ALPRAZolam 0.25 MG TABLET PO PRN (21:22)
[2017-03-10 23:33] VITALS: BP 111/73
[2017-03-10] MEDS: MethylPREDNISolone SOD SUCC 40 MG/ML VIAL IVP SCH (23:49)
[2017-03-11 04:16] VITALS: BP 123/76
[2017-03-11 07:12] VITALS: BP 109/82
[2017-03-11] MEDS: ALLOPURINOL 100 MG TABLET PO SCH (08:56)
[2017-03-11] MEDS: DOCUSATE SODIUM 100 MG CAPSULE PO SCH ×2 (08:56→20:30)
[2017-03-11] MEDS: BUMETANIDE 0.25 MG/ML 4 ML VIAL IVP SCH ×2 (08:56→20:30)
[2017-03-11] MEDS: HEPARIN SODIUM,PORCINE 5,000 UNITS/ML VIAL SQ SCH ×2 (08:56→20:30)
[2017-03-11] MEDS: MethylPREDNISolone SOD SUCC 40 MG/ML VIAL IVP SCH ×3 (08:56→23:38)
[2017-03-11] MEDS: ASPIRIN 81 MG EC TABLET PO SCH (08:56)
[2017-03-11] MEDS: TraMADol HCL 50 MG TABLET PO PRN ×2 (08:57→23:38)
[2017-03-11] MEDS: SPIRONOLACTONE 25 MG TABLET PO SCH (09:00)
[2017-03-11] MEDS: PANTOPRAZOLE SODIUM 40 MG DR TABLET PO SCH (09:00)
[2017-03-11 09:32] LABS: BASOPHILS # (AUTO) 0.03 K/uL (0.00-0.20); BASOPHILS % (AUTO) 0.3 % (0.0-2.0); EOSINOPHILS # (AUTO) 0.01 K/uL (0.00-0.70); EOSINOPHILS % (AUTO) 0.07 % (1.0-6.0); HEMATOCRIT 37.5 % (41-53); HEMOGLOBIN 11.9 g/dL (13.5-17.5); LYMPHOCYTES # (AUTO) 0.4 K/uL (1.0-4.8); LYMPHOCYTES % (AUTO) 4.8 % (22.0-44.0); MEAN CORPUSCULAR HEMOGLOBIN 26.2 pg (26.0-34.0); MEAN CORPUSCULAR HGB CONC 31.7 G/dL (31.0-37.0); MEAN CORPUSCULAR VOLUME 83 fL (80-100); MONOCYTES # (AUTO) 0.2 K/uL (0.1-1.0); MONOCYTES % (AUTO) 2.1 % (2.0-9.0); NEUTROPHILS # (AUTO) 7.2 K/uL (1.8-7.7); PLATELET COUNT (AUTO) 174 K/uL (150-450); RED BLOOD CELL COUNT(AUTO) 4.54 MIL/uL (4.50-5.90); RED CELL DISTRIBUTION WIDTH 23.9 % (11.5-14.5); WHITE BLOOD COUNT (AUTO) 7.8 K/uL (4.5-11.0)
[2017-03-11 09:47] LABS: ALBUMIN 2.5 g/dL (3.4-5.0); BILIRUBIN,TOTAL 3.7 mg/dL (0.1-1.0); CALCIUM, TOTAL 8.9 mg/dL (8.8-10.5); CREATININE 1.78 mg/dL (0.60-1.30); POTASSIUM 4.4 mmol/L (3.5-5.1); TOTAL PROTEIN, SERUM 7.6 g/dL (6.4-8.2)
[2017-03-11 09:53] LABS: NEUTROPHILS % (AUTO) 92.7 % (40.0-70.0); RBC MORPHOLOGY COMMENT ABNORMAL RBC MORPH
[2017-03-11 10:37] LABS: HEPATITIS Bs ANTIGEN SCREEN P Negative (Negative); HEPATITIS C AB SCREEN >11.0 s/co ratio (0.0-0.9)
[2017-03-11 10:52] VITALS: BP 102/66
[2017-03-11 15:00] VITALS: BP 120/77
[2017-03-11 19:39] VITALS: BP 122/80
[2017-03-12] VITALS (7 sets, daily range): BP systolic 120–145; BP diastolic 71–85
[2017-03-12 06:48] LABS: EOSINOPHILS % (AUTO) 0 % (1.0-6.0); HEMATOCRIT 36.1 % (41-53); HEMOGLOBIN 11.7 g/dL (13.5-17.5); LYMPHOCYTES # (AUTO) 0.5 K/uL (1.0-4.8); LYMPHOCYTES % (AUTO) 3.1 % (22.0-44.0); MEAN CORPUSCULAR HEMOGLOBIN 26.8 pg (26.0-34.0); MEAN CORPUSCULAR HGB CONC 32.4 G/dL (31.0-37.0); MEAN CORPUSCULAR VOLUME 83 fL (80-100); MONOCYTES # (AUTO) 0.2 K/uL (0.1-1.0); MONOCYTES % (AUTO) 1.4 % (2.0-9.0); NEUTROPHILS # (AUTO) 14.7 K/uL (1.8-7.7); PLATELET COUNT (AUTO) 202 K/uL (150-450); RED BLOOD CELL COUNT(AUTO) 4.36 MIL/uL (4.50-5.90); RED CELL DISTRIBUTION WIDTH 22.9 % (11.5-14.5); WHITE BLOOD COUNT (AUTO) 15.4 K/uL (4.5-11.0)
[2017-03-12 06:54] LABS: NEUTROPHILS % (AUTO) 95.5 % (40.0-70.0)
[2017-03-12 07:20] LABS: CREATININE 1.49 mg/dL (0.60-1.30); POTASSIUM 4.7 mmol/L (3.5-5.1)
[2017-03-12 07:42] LABS: RBC MORPHOLOGY COMMENT DIMORPHIC RBC
[2017-03-12] MEDS: MethylPREDNISolone SOD SUCC 40 MG/ML VIAL IVP SCH (08:32)
[2017-03-12] MEDS: BUMETANIDE 0.25 MG/ML 4 ML VIAL IVP SCH ×2 (08:32→21:22)
[2017-03-12] MEDS: HEPARIN SODIUM,PORCINE 5,000 UNITS/ML VIAL SQ SCH ×2 (08:33→21:22)
[2017-03-12] MEDS: ALLOPURINOL 100 MG TABLET PO SCH (08:33)
[2017-03-12] MEDS: PANTOPRAZOLE SODIUM 40 MG DR TABLET PO SCH (08:33)
[2017-03-12] MEDS: TraMADol HCL 50 MG TABLET PO PRN ×2 (08:34→19:34)
[2017-03-12] MEDS: DOCUSATE SODIUM 100 MG CAPSULE PO SCH ×2 (08:34→21:21)
[2017-03-12] MEDS: ASPIRIN 81 MG EC TABLET PO SCH (08:34)
[2017-03-12] MEDS: SPIRONOLACTONE 25 MG TABLET PO SCH (08:34)
[2017-03-13] VITALS (10 sets, daily range): BP systolic 90–120; BP diastolic 52–78
[2017-03-13] MEDS: TraMADol HCL 50 MG TABLET PO PRN ×3 (01:39→14:55)
[2017-03-13] MEDS: ALPRAZolam 0.25 MG TABLET PO PRN ×2 (04:58→15:35)
[2017-03-13 05:45] LABS: EOSINOPHILS % (AUTO) 0 % (1.0-6.0); HEMATOCRIT 39.3 % (41-53); HEMOGLOBIN 12.4 g/dL (13.5-17.5); LYMPHOCYTES # (AUTO) 0.2 K/uL (1.0-4.8); LYMPHOCYTES % (AUTO) 0.9 % (22.0-44.0); MEAN CORPUSCULAR HGB CONC 31.4 G/dL (31.0-37.0); MEAN CORPUSCULAR VOLUME 83 fL (80-100); MONOCYTES # (AUTO) 0.1 K/uL (0.1-1.0); MONOCYTES % (AUTO) 0.3 % (2.0-9.0); NEUTROPHILS # (AUTO) 22.8 K/uL (1.8-7.7); PLATELET COUNT (AUTO) 186 K/uL (150-450); RED BLOOD CELL COUNT(AUTO) 4.75 MIL/uL (4.50-5.90); RED CELL DISTRIBUTION WIDTH 22.7 % (11.5-14.5); WHITE BLOOD COUNT (AUTO) 23.1 K/uL (4.5-11.0)
[2017-03-13 06:30] LABS: ALANINE AMINOTRANSFERASE 68 U/L (12-78); ALBUMIN 2.7 g/dL (3.4-5.0); ANION GAP 11 mmol/L (8-16); ASPARTATE AMINOTRANSFERASE 59 U/L (15-37); BILIRUBIN,TOTAL 4.1 mg/dL (0.1-1.0); CARBON DIOXIDE 23 mmol/L (22-29); CHLORIDE 97 mmol/L (98-107); GLOMERULAR FILTR. RATE CALC > 60 mL/min (>60); POTASSIUM 5.4 mmol/L (3.5-5.1); SODIUM SERUM 131 mmol/L (136-145); TOTAL PROTEIN, SERUM 7.4 g/dL (6.4-8.2); UREA NITROGEN, BLOOD 34 mg/dL (7-18)
[2017-03-13 06:52] LABS: NEUTROPHILS % (AUTO) 98.8 % (40.0-70.0)
[2017-03-13] MEDS: HEPARIN SODIUM,PORCINE 5,000 UNITS/ML VIAL SQ SCH ×2 (08:12→20:12)
[2017-03-13] MEDS: BUMETANIDE 0.25 MG/ML 4 ML VIAL IVP SCH ×2 (08:12→20:12)
[2017-03-13] MEDS: PANTOPRAZOLE SODIUM 40 MG DR TABLET PO SCH (08:13)
[2017-03-13] MEDS: ASPIRIN 81 MG EC TABLET PO SCH (08:13)
[2017-03-13] MEDS: ALLOPURINOL 100 MG TABLET PO SCH (08:13)
[2017-03-13] MEDS: DOCUSATE SODIUM 100 MG CAPSULE PO SCH ×2 (08:13→20:12)
[2017-03-13] MEDS ORDERED: SPIRONOLACTONE 25 MG TABLET PO SCH (09:00)
[2017-03-13] MEDS: METOPROLOL TARTRATE 25 MG TABLET PO SCH ×2 (09:50→21:00)
[2017-03-13 10:13] LABS: RBC MORPHOLOGY COMMENT ABNORMAL RBC MORPH
[2017-03-13] MEDS: PredniSONE 20 MG TABLET PO SCH (11:46)
[2017-03-13] MEDS ORDERED: INSULIN REGULAR, HUMAN 100 UNITS/ML IVP ONE (13:30)
[2017-03-13] MEDS ORDERED: DEXTROSE 50%-WATER 25 GM/50 ML SYRINGE IVP ONE ×2 (13:30→17:45)
[2017-03-13] MEDS ORDERED: SODIUM POLYSTYRENE SULFONATE 15 GM/60 ML SUSPENSION BOTTLE PO ONE ×3 (13:30→17:45)
[2017-03-13] MEDS ORDERED: CALCIUM GLUCONATE 100 MG/ML 10 ML IVP ONE (14:45)
[2017-03-13] MEDS ORDERED: BUMETANIDE 0.25 MG/ML 4 ML VIAL IM ONE (14:45)
[2017-03-13 17:29] LABS: CALCIUM, TOTAL 9.8 mg/dL (8.8-10.5); CREATININE 2.1 mg/dL (0.60-1.30); POTASSIUM 5.8 mmol/L (3.5-5.1)
[2017-03-14] VITALS: BP 98/73
[2017-03-14 04:00] VITALS: BP 107/74
[2017-03-14] MEDS: ALPRAZolam 0.25 MG TABLET PO PRN ×2 (05:35→23:24)
[2017-03-14 06:52] LABS: ALBUMIN 2.6 g/dL (3.4-5.0); BILIRUBIN,TOTAL 7.5 mg/dL (0.1-1.0); CALCIUM, TOTAL 8.8 mg/dL (8.8-10.5); CREATININE 2.08 mg/dL (0.60-1.30); HEMATOCRIT 42.8 % (41-53); HEMOGLOBIN 12.8 g/dL (13.5-17.5); MAGNESIUM 2.2 mg/dL (1.80-2.40); MEAN CORPUSCULAR HEMOGLOBIN 24.9 pg (26.0-34.0); MEAN CORPUSCULAR HGB CONC 29.9 G/dL (31.0-37.0); MEAN CORPUSCULAR VOLUME 84 fL (80-100); PHOSPHORUS 5.5 mg/dL (2.5-4.9); PLATELET COUNT (AUTO) 145 K/uL (150-450); POTASSIUM 4.7 mmol/L (3.5-5.1); RED BLOOD CELL COUNT(AUTO) 5.12 MIL/uL (4.50-5.90); RED CELL DISTRIBUTION WIDTH 23.4 % (11.5-14.5); TOTAL PROTEIN, SERUM 7.5 g/dL (6.4-8.2); WHITE BLOOD COUNT (AUTO) 13.8 K/uL (4.5-11.0)
[2017-03-14 07:12] LABS: APPEARANCE,URINE CLOUDY (CLEAR); GLUCOSE, URINE (UA) NEGATIVE (NEGATIVE); KETONES,URINE NEGATIVE (NEGATIVE); LEUKOCYTE ESTERASE ,URINE SMALL (NEGATIVE); OCCULT BLOOD,URINE MODERATE (NEGATIVE); PH,URINE 5.5 (5.0-8.0); PROTEIN,URINE TRACE (NEGATIVE)
[2017-03-14 07:30] LABS: FINE GRANULAR CASTS,URINE 0-2 /LPF (None Seen); SQUAMOUS EPITHELIAL CELL,UR Moderate /LPF (None Seen)
[2017-03-14 07:42] LABS: BAND NEUTROPHILS % (MANUAL) 15 % (1-5); EOSINOPHILS % (MANUAL) 1 % (1-6); LYMPHOCYTES % (MANUAL) 10 % (22-44); RBC MORPHOLOGY COMMENT DIMORPHIC RBC; TOTAL CELLS COUNTED 100
[2017-03-14 08:00] VITALS: BP 108/61
[2017-03-14] MEDS: DOCUSATE SODIUM 100 MG CAPSULE PO SCH ×2 (08:30→23:19)
[2017-03-14] MEDS: BUMETANIDE 0.25 MG/ML 4 ML VIAL IVP SCH ×2 (08:30→23:19)
[2017-03-14] MEDS: METOPROLOL TARTRATE 25 MG TABLET PO SCH ×2 (08:30→23:19)
[2017-03-14] MEDS: PredniSONE 20 MG TABLET PO SCH (08:31)
[2017-03-14] MEDS: HEPARIN SODIUM,PORCINE 5,000 UNITS/ML VIAL SQ SCH ×2 (08:31→23:24)
[2017-03-14] MEDS: PANTOPRAZOLE SODIUM 40 MG DR TABLET PO SCH (08:31)
[2017-03-14] MEDS: ALLOPURINOL 100 MG TABLET PO SCH (08:31)
[2017-03-14 09:08] LABS: GLUCOSE,POINT OF CARE 212 MG/DL (70-110)
[2017-03-14 09:08] LABS: GLUCOSE COMMENT 1 Received Meds; GLUCOSE,POINT OF CARE 29 MG/DL (70-110)
[2017-03-14 09:08] LABS: GLUCOSE,POINT OF CARE 154 MG/DL (70-110)
[2017-03-14 12:14] VITALS: BP 94/62
[2017-03-14 15:41] VITALS: BP 96/57
[2017-03-14 17:16] LABS: MAGNESIUM 1.9 mg/dL (1.80-2.40); POTASSIUM 3.8 mmol/L (3.5-5.1)
[2017-03-14 19:59] VITALS: BP 98/72
[2017-03-14] MEDS: TraMADol HCL 50 MG TABLET PO PRN (23:24)
[2017-03-15] VITALS (7 sets, daily range): BP systolic 101–121; BP diastolic 68–82
[2017-03-15] MEDS: TraMADol HCL 50 MG TABLET PO PRN (04:10)
[2017-03-15 06:03] LABS: EOSINOPHILS % (AUTO) 0.1 % (1.0-6.0); HEMATOCRIT 36.5 % (41-53); HEMOGLOBIN 11.8 g/dL (13.5-17.5); LYMPHOCYTES # (AUTO) 0.7 K/uL (1.0-4.8); LYMPHOCYTES % (AUTO) 5.3 % (22.0-44.0); MEAN CORPUSCULAR HEMOGLOBIN 26.8 pg (26.0-34.0); MEAN CORPUSCULAR HGB CONC 32.4 G/dL (31.0-37.0); MEAN CORPUSCULAR VOLUME 83 fL (80-100); MONOCYTES # (AUTO) 0.2 K/uL (0.1-1.0); MONOCYTES % (AUTO) 1.8 % (2.0-9.0); NEUTROPHILS # (AUTO) 12.4 K/uL (1.8-7.7); PLATELET COUNT (AUTO) 153 K/uL (150-450); RED BLOOD CELL COUNT(AUTO) 4.42 MIL/uL (4.50-5.90); RED CELL DISTRIBUTION WIDTH 22.5 % (11.5-14.5); WHITE BLOOD COUNT (AUTO) 13.4 K/uL (4.5-11.0)
[2017-03-15 06:10] LABS: NEUTROPHILS % (AUTO) 92.8 % (40.0-70.0)
[2017-03-15 06:19] LABS: ALANINE AMINOTRANSFERASE 52 U/L (12-78); ALBUMIN 2.2 g/dL (3.4-5.0); ANION GAP 6 mmol/L (8-16); ASPARTATE AMINOTRANSFERASE 48 U/L (15-37); BILIRUBIN,TOTAL 4.1 mg/dL (0.1-1.0); CALCIUM, TOTAL 8.4 mg/dL (8.8-10.5); CARBON DIOXIDE 30 mmol/L (22-29); CHLORIDE 97 mmol/L (98-107); CREATININE 1.44 mg/dL (0.60-1.30); GLOMERULAR FILTR. RATE CALC > 60 mL/min (>60); PHOSPHORUS 2.1 mg/dL (2.5-4.9); POTASSIUM 3.6 mmol/L (3.5-5.1); SODIUM SERUM 133 mmol/L (136-145); TOTAL PROTEIN, SERUM 6.4 g/dL (6.4-8.2); UREA NITROGEN, BLOOD 41 mg/dL (7-18)
[2017-03-15 06:42] LABS: RBC MORPHOLOGY COMMENT ABNORMAL RBC MORPH
[2017-03-15] MEDS: BUMETANIDE 0.25 MG/ML 4 ML VIAL IVP SCH ×2 (08:03→20:12)
[2017-03-15] MEDS: HEPARIN SODIUM,PORCINE 5,000 UNITS/ML VIAL SQ SCH ×2 (08:04→20:26)
[2017-03-15] MEDS: DOCUSATE SODIUM 100 MG CAPSULE PO SCH ×2 (08:05→20:12)
[2017-03-15] MEDS: METOPROLOL TARTRATE 25 MG TABLET PO SCH (08:05)
[2017-03-15] MEDS: PredniSONE 20 MG TABLET PO SCH (08:05)
[2017-03-15] MEDS: PANTOPRAZOLE SODIUM 40 MG DR TABLET PO SCH (08:05)
[2017-03-15] MEDS: ALLOPURINOL 100 MG TABLET PO SCH (08:05)
[2017-03-15] MEDS: POTASSIUM PHOS/SODIUM PHOS MIXTURE 1 POWDER PACKET PO SCH ×2 (10:41→20:23)
[2017-03-15] MEDS: CARVEDILOL 3.125 MG TABLET PO SCH (20:12)
[2017-03-16 04:18] VITALS: BP 115/67
[2017-03-16 07:11] LABS: ANION GAP 7 mmol/L (8-16); CALCIUM, TOTAL 8.7 mg/dL (8.8-10.5); CARBON DIOXIDE 30 mmol/L (22-29); CHLORIDE 99 mmol/L (98-107); CREATININE 1.21 mg/dL (0.60-1.30); GLOMERULAR FILTR. RATE CALC > 60 mL/min (>60); PHOSPHORUS 1.9 mg/dL (2.5-4.9); POTASSIUM 3.3 mmol/L (3.5-5.1); SODIUM SERUM 136 mmol/L (136-145); UREA NITROGEN, BLOOD 32 mg/dL (7-18)
[2017-03-16 07:27] VITALS: BP 128/84
[2017-03-16] MEDS: ALLOPURINOL 100 MG TABLET PO SCH (08:10)
[2017-03-16] MEDS: PredniSONE 20 MG TABLET PO SCH (08:11)
[2017-03-16] MEDS: PANTOPRAZOLE SODIUM 40 MG DR TABLET PO SCH (08:11)
[2017-03-16] MEDS: DOCUSATE SODIUM 100 MG CAPSULE PO SCH (08:11)
[2017-03-16] MEDS: HEPARIN SODIUM,PORCINE 5,000 UNITS/ML VIAL SQ SCH (08:11)
[2017-03-16] MEDS: BUMETANIDE 0.25 MG/ML 4 ML VIAL IVP SCH (08:11)
[2017-03-16] MEDS: CARVEDILOL 3.125 MG TABLET PO SCH (08:11)
== END 2017-03-16 18:24 | disposition left against medical advice (07) | DRG 194 ==
LOC: EMS 22:37 → 5N 03-09 00:29 → ICU 03-13 14:10 → 5S 03-14 12:07
PROVIDERS: ADMIT Internal Medicine; ATTEND Internal Medicine
PROC: 5A09457 Assistance with Respiratory Ventilation, 24-96 Consecutive Hours, Continuous Positive Airway Pressure (ICD-10-PCS; principal; 2017-03-10)
DX: I13.0 Hypertensive heart and chronic kidney disease with heart failure and stage 1 through stage 4 chronic kidney disease, or unspecified chronic kidney disease (principal); J96.01 Acute respiratory failure with hypoxia; R57.0 Cardiogenic shock; I47.2 Ventricular tachycardia; E43 Unspecified severe protein-calorie malnutrition; N17.9 Acute kidney failure, unspecified; N18.3 Chronic kidney disease, stage 3 (moderate); E87.1 Hypo-osmolality and hyponatremia; R18.8 Other ascites; I50.43 Acute on chronic combined systolic (congestive) and diastolic (congestive) heart failure; I27.20 Pulmonary hypertension, unspecified; E83.39 Other disorders of phosphorus metabolism; I48.0 Paroxysmal atrial fibrillation; F14.10 Cocaine abuse, uncomplicated; M10.9 Gout, unspecified; J44.1 Chronic obstructive pulmonary disease with (acute) exacerbation; I25.5 Ischemic cardiomyopathy; B19.20 Unspecified viral hepatitis C without hepatic coma; D63.8 Anemia in other chronic diseases classified elsewhere; E78.5 Hyperlipidemia, unspecified; E87.5 Hyperkalemia; E87.6 Hypokalemia; F10.10 Alcohol abuse, uncomplicated; F17.210 Nicotine dependence, cigarettes, uncomplicated; F41.1 Generalized anxiety disorder; G89.4 Chronic pain syndrome; H40.9 Unspecified glaucoma; I25.10 Atherosclerotic heart disease of native coronary artery without angina pectoris; I50.84 End stage heart failure; Z79.82 Long term (current) use of aspirin; Z79.899 Other long term (current) drug therapy; Z91.19 Patient's noncompliance with other medical treatment and regimen; Z95.810 Presence of automatic (implantable) cardiac defibrillator; Z28.21 Immunization not carried out because of patient refusal; Z53.21 Procedure and treatment not carried out due to patient leaving prior to being seen by health care provider
CPT/HCPCS: 76770; 80074; 82570; 82805; 82962; 83735; 84100; 84132; 84300; 84540; 87081; 87086; 93005; 93970; 94640; 94660; 96374; 96375; 97162; 97530; 99285; 99406; J0610; J1250; J1630; J1644; J1815; J2060; J2405; J2920; J2930; J3490

== ENCOUNTER 2017-03-24 19:59 | Emergency (ER) | payer OTHER ==
[~2017-03-24] VITALS: Ht 177.8 cm; Wt 87.7 kg
[2017-03-24 21:24] LABS: INR 1.1 (0.9-1.1); PROTHROMBIN TIME 11.5 SEC (9.4-11.6)
[2017-03-24 21:30] LABS: BASOPHILS # (AUTO) 0.01 K/uL (0.00-0.20); BASOPHILS % (AUTO) 0.1 % (0.0-2.0); EOSINOPHILS # (AUTO) 0.04 K/uL (0.00-0.70); EOSINOPHILS % (AUTO) 0.56 % (1.0-6.0); HEMATOCRIT 41.9 % (41-53); HEMOGLOBIN 13.1 g/dL (13.5-17.5); LYMPHOCYTES # (AUTO) 0.9 K/uL (1.0-4.8); LYMPHOCYTES % (AUTO) 12.3 % (22.0-44.0); MEAN CORPUSCULAR HEMOGLOBIN 25.5 pg (26.0-34.0); MEAN CORPUSCULAR HGB CONC 31.2 G/dL (31.0-37.0); MEAN CORPUSCULAR VOLUME 82 fL (80-100); MONOCYTES # (AUTO) 0.3 K/uL (0.1-1.0); MONOCYTES % (AUTO) 4.3 % (2.0-9.0); NEUTROPHILS # (AUTO) 6.3 K/uL (1.8-7.7); NEUTROPHILS % (AUTO) 82.7 % (40.0-70.0); PLATELET COUNT (AUTO) 160 K/uL (150-450); RED BLOOD CELL COUNT(AUTO) 5.14 MIL/uL (4.50-5.90); RED CELL DISTRIBUTION WIDTH 24.5 % (11.5-14.5); WHITE BLOOD COUNT (AUTO) 7.7 K/uL (4.5-11.0)
[2017-03-24 21:42] LABS: ANION GAP 14 mmol/L (8-16); CALCIUM, TOTAL 9.3 mg/dL (8.8-10.5); CARBON DIOXIDE 24 mmol/L (22-29); CHLORIDE 102 mmol/L (98-107); CREATININE 1.37 mg/dL (0.60-1.30); GLOMERULAR FILTR. RATE CALC > 60 mL/min (>60); POTASSIUM 3.7 mmol/L (3.5-5.1); SODIUM SERUM 140 mmol/L (136-145); UREA NITROGEN, BLOOD 18 mg/dL (7-18)
[2017-03-24 21:48] LABS: ALANINE AMINOTRANSFERASE 51 U/L (12-78); ALBUMIN 3.1 g/dL (3.4-5.0); ASPARTATE AMINOTRANSFERASE 51 U/L (15-37); BILIRUBIN,TOTAL 4.6 mg/dL (0.1-1.0); TOTAL PROTEIN, SERUM 8.4 g/dL (6.4-8.2)
[2017-03-24 21:56] LABS: B-TYPE NATRIURETIC PEPTIDE 1680 pg/mL (0-100)
[2017-03-24] MEDS ORDERED: ONDANSETRON HCL 4 MG/2 ML VIAL IVP ONE (22:00)
[2017-03-24] MEDS ORDERED: KETOROLAC TROMETHAMINE 30 MG/ML VIAL IVP ONE (22:00)
[2017-03-24 22:23] LABS: RBC MORPHOLOGY COMMENT ABNORMAL RBC MORPH
[2017-03-24 22:26] LABS: INFLUENZA TYPE B NEGATIVE FOR TYPE B (NEGATIVE)
[2017-03-24] MEDS ORDERED: TraMADol HCL 50 MG TABLET PO ONE (23:15)
[2017-03-24 23:58] VITALS: BP 122/75
== END 2017-03-25 00:01 | disposition home or self-care (01) ==
LOC: EMS 20:02
DX: R07.9 Chest pain, unspecified (principal); R19.7 Diarrhea, unspecified; R11.10 Vomiting, unspecified; I48.91 Unspecified atrial fibrillation; I11.0 Hypertensive heart disease with heart failure; I50.9 Heart failure, unspecified; F17.210 Nicotine dependence, cigarettes, uncomplicated; F14.90 Cocaine use, unspecified, uncomplicated; Z95.0 Presence of cardiac pacemaker; Z79.82 Long term (current) use of aspirin
CPT/HCPCS: 87804; 93005; 96374; 96375; 99285; J1885; J2405

== ENCOUNTER 2017-04-23 13:31 | Inpatient (IN) | payer OTHER ==
[~2017-04-23] VITALS: Ht 175.3 cm; Wt 88.0 kg
[2017-04-23 14:02] LABS: EOSINOPHILS % (AUTO) 0.6 % (1.0-6.0); HEMATOCRIT 42.1 % (41-53); HEMOGLOBIN 13.5 g/dL (13.5-17.5); LYMPHOCYTES % (AUTO) 8.7 % (22.0-44.0); MEAN CORPUSCULAR HEMOGLOBIN 26.4 pg (26.0-34.0); MEAN CORPUSCULAR HGB CONC 32.2 G/dL (31.0-37.0); MEAN CORPUSCULAR VOLUME 82 fL (80-100); MONOCYTES # (AUTO) 0.6 K/uL (0.1-1.0); MONOCYTES % (AUTO) 5.2 % (2.0-9.0); NEUTROPHILS # (AUTO) 9.6 K/uL (1.8-7.7); PLATELET COUNT (AUTO) 166 K/uL (150-450); RED BLOOD CELL COUNT(AUTO) 5.14 MIL/uL (4.50-5.90); RED CELL DISTRIBUTION WIDTH 26.3 % (11.5-14.5)
[2017-04-23 14:04] LABS: NEUTROPHILS % (AUTO) 85.5 % (40.0-70.0)
[2017-04-23 14:14] LABS: ANION GAP 15 mmol/L (8-16); CALCIUM, TOTAL 9.2 mg/dL (8.8-10.5); CARBON DIOXIDE 23 mmol/L (22-29); CHLORIDE 98 mmol/L (98-107); CREATININE 1.17 mg/dL (0.60-1.30); GLOMERULAR FILTR. RATE CALC > 60 mL/min (>60); GLUCOSE,RANDOM 106 mg/dL (70-110); POTASSIUM 5.4 mmol/L (3.5-5.1); SODIUM SERUM 136 mmol/L (136-145); UREA NITROGEN, BLOOD 29 mg/dL (7-18)
[2017-04-23 14:19] LABS: ALANINE AMINOTRANSFERASE 62 U/L (12-78); ALBUMIN 2.9 g/dL (3.4-5.0); ALKALINE PHOSPHATASE 616 U/L (46-116); ASPARTATE AMINOTRANSFERASE 96 U/L (15-37); BILIRUBIN,TOTAL 5.7 mg/dL (0.1-1.0); TOTAL PROTEIN, SERUM 8.1 g/dL (6.4-8.2)
[2017-04-23 14:27] LABS: B-TYPE NATRIURETIC PEPTIDE 2350 pg/mL (0-100)
[2017-04-23] MEDS ORDERED: FUROSEMIDE 40 MG/4 ML VIAL IVP ONE (19:30)
[2017-04-23] MEDS ORDERED: ASPIRIN 81 MG CHEWABLE TABLET PO ONE (19:30)
[2017-04-23] MEDS ORDERED: NITROGLYCERIN 2% (1 GM=INCH) PACKET TP ONE (20:15)
[2017-04-23] MEDS ORDERED: MORPHINE SULFATE 4 MG/ML SYRINGE IVP ONE (20:15)
[2017-04-23] MEDS ORDERED: ACETAMINOPHEN 325 MG TABLET PO PRN (20:45)
[2017-04-23] MEDS ORDERED: 0.9% SODIUM CHLORIDE 10 ML SYRINGE IVP PRN (20:45)
[2017-04-23] MEDS ORDERED: ONDANSETRON HCL 4 MG/2 ML VIAL IVP PRN (20:45)
[2017-04-24] MEDS ORDERED: ONDANSETRON HCL 4 MG/2 ML VIAL IVP ONE (01:00)
[2017-04-24] MEDS ORDERED: MORPHINE SULFATE 4 MG/ML SYRINGE IVP ONE (01:00)
[2017-04-24 03:00] VITALS: BP 106/66
[2017-04-24] MEDS ORDERED: MAGNESIUM HYDROXIDE SUSPENSION 30 ML UDCUP PO PRN (07:00)
[2017-04-24] MEDS ORDERED: ALBUTEROL SULFATE 2.5 MG/0.5 ML NEB SOLUTION NEB PRN (07:00)
[2017-04-24] MEDS ORDERED: ACETAMINOPHEN 325 MG TABLET PO PRN (07:00)
[2017-04-24 07:20] VITALS: BP 99/66
[2017-04-24] MEDS: HEPARIN SODIUM,PORCINE 5,000 UNITS/ML VIAL SQ SCH ×2 (08:54→16:54)
[2017-04-24] MEDS: METOPROLOL TARTRATE 25 MG TABLET PO SCH ×2 (08:54→20:26)
[2017-04-24] MEDS: PANTOPRAZOLE SODIUM 40 MG DR TABLET PO SCH (08:57)
[2017-04-24] MEDS: ASPIRIN 81 MG CHEWABLE TABLET PO SCH (08:59)
[2017-04-24] MEDS: BUMETANIDE 0.25 MG/ML 4 ML VIAL IVP SCH ×2 (08:59→22:07)
[2017-04-24] MEDS: DOCUSATE SODIUM 100 MG CAPSULE PO SCH ×2 (08:59→20:26)
[2017-04-24] MEDS: LISINOPRIL 5 MG TABLET PO SCH (09:00)
[2017-04-24] MEDS: MORPHINE SULFATE 2 MG/ML SYRINGE IVP PRN ×2 (09:58→20:27)
[2017-04-24 11:03] VITALS: BP 105/62
[2017-04-24 15:20] LABS: AMPHET/METH SCREEN,URINE NEGATIVE (NEGATIVE); BARBITURATE SCREEN, URINE NEGATIVE (NEGATIVE); BENZODIAZEPINES SCREEN,URINE NEGATIVE (NEGATIVE); CANNABINOID SCREEN,URINE NEGATIVE (NEGATIVE); COCAINE SCREEN,URINE POSITIVE (NEGATIVE); METHADONE SCREEN, URINE NEGATIVE (NEGATIVE); OPIATE SCREEN,URINE POSITIVE (NEGATIVE); PHENCYCLIDINE SCREEN,URINE NEGATIVE (NEGATIVE)
[2017-04-24 15:36] VITALS: BP 103/67
[2017-04-24 19:44] VITALS: BP 109/68
[2017-04-24] MEDS ORDERED: ATORVASTATIN CALCIUM 20 MG TABLET PO SCH (21:00)
[2017-04-24 22:18] VITALS: BP 112/69
[2017-04-25] VITALS (7 sets, daily range): BP systolic 98–160; BP diastolic 48–79
[2017-04-25] MEDS: HEPARIN SODIUM,PORCINE 5,000 UNITS/ML VIAL SQ SCH ×2 (00:41→08:51)
[2017-04-25] MEDS: MORPHINE SULFATE 2 MG/ML SYRINGE IVP PRN ×2 (04:48→17:39)
[2017-04-25] MEDS ORDERED: ONDANSETRON HCL 4 MG/2 ML VIAL IVP PRN (07:30)
[2017-04-25] MEDS: DOCUSATE SODIUM 100 MG CAPSULE PO SCH ×2 (08:51→20:17)
[2017-04-25] MEDS: BUMETANIDE 0.25 MG/ML 4 ML VIAL IVP SCH (08:51)
[2017-04-25] MEDS: PANTOPRAZOLE SODIUM 40 MG DR TABLET PO SCH (08:51)
[2017-04-25] MEDS: LISINOPRIL 5 MG TABLET PO SCH (08:52)
[2017-04-25] MEDS: ASPIRIN 81 MG CHEWABLE TABLET PO SCH (08:52)
[2017-04-25] MEDS: METOPROLOL TARTRATE 25 MG TABLET PO SCH ×2 (08:52→20:17)
[2017-04-25 09:35] LABS: EOSINOPHILS # (AUTO) 0.07 K/uL (0.00-0.70); EOSINOPHILS % (AUTO) 0.72 % (1.0-6.0); HEMATOCRIT 39.8 % (41-53); HEMOGLOBIN 12.6 g/dL (13.5-17.5); LYMPHOCYTES # (AUTO) 0.9 K/uL (1.0-4.8); LYMPHOCYTES % (AUTO) 9.6 % (22.0-44.0); MEAN CORPUSCULAR HEMOGLOBIN 26.2 pg (26.0-34.0); MEAN CORPUSCULAR HGB CONC 31.6 G/dL (31.0-37.0); MEAN CORPUSCULAR VOLUME 83 fL (80-100); MONOCYTES # (AUTO) 0.7 K/uL (0.1-1.0); MONOCYTES % (AUTO) 6.8 % (2.0-9.0); NEUTROPHILS # (AUTO) 8.2 K/uL (1.8-7.7); NEUTROPHILS % (AUTO) 82.9 % (40.0-70.0); PLATELET COUNT (AUTO) 160 K/uL (150-450); RED CELL DISTRIBUTION WIDTH 25.7 % (11.5-14.5)
[2017-04-25 09:48] LABS: ALBUMIN 2.8 g/dL (3.4-5.0); BILIRUBIN,TOTAL 8.6 mg/dL (0.1-1.0); CALCIUM, TOTAL 8.8 mg/dL (8.8-10.5); CREATININE 3.38 mg/dL (0.60-1.30); MAGNESIUM 2.1 mg/dL (1.80-2.40); POTASSIUM 5.7 mmol/L (3.5-5.1); TOTAL PROTEIN, SERUM 7.9 g/dL (6.4-8.2)
[2017-04-25] MEDS ORDERED: SODIUM POLYSTYRENE SULFONATE 15 GM/60 ML SUSPENSION BOTTLE PO ONE (11:00)
[2017-04-25 15:45] LABS: CREATININE,URINE RANDOM 142.5 mg/dL (30.0-125.0)
[2017-04-26 04:09] VITALS: BP 115/63
[2017-04-26 07:49] VITALS: BP 117/58
[2017-04-26 07:57] LABS: EOSINOPHILS % (AUTO) 0.8 % (1.0-6.0); HEMATOCRIT 34.3 % (41-53); HEMOGLOBIN 11.2 g/dL (13.5-17.5); LYMPHOCYTES # (AUTO) 0.6 K/uL (1.0-4.8); MEAN CORPUSCULAR HEMOGLOBIN 26.8 pg (26.0-34.0); MEAN CORPUSCULAR HGB CONC 32.6 G/dL (31.0-37.0); MEAN CORPUSCULAR VOLUME 82 fL (80-100); MONOCYTES # (AUTO) 0.6 K/uL (0.1-1.0); MONOCYTES % (AUTO) 6.8 % (2.0-9.0); PLATELET COUNT (AUTO) 141 K/uL (150-450); RED BLOOD CELL COUNT(AUTO) 4.17 MIL/uL (4.50-5.90); RED CELL DISTRIBUTION WIDTH 25.5 % (11.5-14.5)
[2017-04-26 07:58] LABS: NEUTROPHILS % (AUTO) 85.4 % (40.0-70.0)
[2017-04-26] MEDS: DOCUSATE SODIUM 100 MG CAPSULE PO SCH ×2 (08:11→22:02)
[2017-04-26] MEDS: OxyCODONE HCL/ACETAMINOPHEN 5-325 MG TABLET PO PRN ×2 (08:11→22:01)
[2017-04-26] MEDS: ASPIRIN 81 MG CHEWABLE TABLET PO SCH (08:11)
[2017-04-26] MEDS: METOPROLOL TARTRATE 25 MG TABLET PO SCH ×2 (08:11→21:00)
[2017-04-26] MEDS: PANTOPRAZOLE SODIUM 40 MG DR TABLET PO SCH (08:11)
[2017-04-26 08:29] LABS: ALBUMIN 2.3 g/dL (3.4-5.0); BILIRUBIN,TOTAL 6.3 mg/dL (0.1-1.0); CALCIUM, TOTAL 8.2 mg/dL (8.8-10.5); CREATININE 2.73 mg/dL (0.60-1.30); MAGNESIUM 1.8 mg/dL (1.80-2.40); PHOSPHORUS 3.4 mg/dL (2.5-4.9); POTASSIUM 3.9 mmol/L (3.5-5.1); THYROID STIMULATING HORMONE 2.05 uIU/mL (0.36-3.74); TOTAL PROTEIN, SERUM 6.8 g/dL (6.4-8.2)
[2017-04-26 11:04] VITALS: BP 111/66
[2017-04-26 16:14] VITALS: BP 107/62
[2017-04-26 20:00] VITALS: BP 109/57
[2017-04-26 23:43] VITALS: BP 101/73
[2017-04-27] MEDS: OxyCODONE HCL/ACETAMINOPHEN 5-325 MG TABLET PO PRN ×2 (02:05→13:44)
[2017-04-27 04:26] VITALS: BP 107/75
[2017-04-27 07:12] VITALS: BP 106/66
[2017-04-27] MEDS: MORPHINE SULFATE 2 MG/ML SYRINGE IVP PRN ×2 (07:28→16:27)
[2017-04-27] MEDS: PANTOPRAZOLE SODIUM 40 MG DR TABLET PO SCH (07:28)
[2017-04-27] MEDS: METOPROLOL TARTRATE 25 MG TABLET PO SCH ×2 (07:28→20:34)
[2017-04-27] MEDS: ASPIRIN 81 MG CHEWABLE TABLET PO SCH (07:29)
[2017-04-27] MEDS: DOCUSATE SODIUM 100 MG CAPSULE PO SCH ×2 (07:29→20:30)
[2017-04-27 09:19] LABS: B-TYPE NATRIURETIC PEPTIDE 724 pg/mL (0-100)
[2017-04-27 09:51] LABS: ANION GAP 12 mmol/L (8-16); CALCIUM, TOTAL 8.5 mg/dL (8.8-10.5); CARBON DIOXIDE 23 mmol/L (22-29); CHLORIDE 94 mmol/L (98-107); CREATINE KINASE MB 4.1 ng/mL (0-5); CREATINE KINASE, TOTAL 108 U/L (39-308); CREATININE 1.94 mg/dL (0.60-1.30); GLOMERULAR FILTR. RATE CALC 44 mL/min (>60); GLUCOSE,RANDOM 95 mg/dL (70-110); POTASSIUM 4.3 mmol/L (3.5-5.1); SODIUM SERUM 129 mmol/L (136-145); UREA NITROGEN, BLOOD 42 mg/dL (7-18)
[2017-04-27 11:20] VITALS: BP 110/58
[2017-04-27] MEDS: BUMETANIDE 0.25 MG/ML 10 ML VIAL IVP SCH ×2 (12:08→20:36)
[2017-04-27 14:02] LABS: BASOPHILS # (AUTO) 0.01 K/uL (0.00-0.20); BASOPHILS % (AUTO) 0.2 % (0.0-2.0); EOSINOPHILS # (AUTO) 0.07 K/uL (0.00-0.70); EOSINOPHILS % (AUTO) 1.04 % (1.0-6.0); HEMATOCRIT 36.6 % (41-53); HEMOGLOBIN 11.9 g/dL (13.5-17.5); LYMPHOCYTES # (AUTO) 0.9 K/uL (1.0-4.8); MEAN CORPUSCULAR HEMOGLOBIN 26.3 pg (26.0-34.0); MEAN CORPUSCULAR HGB CONC 32.4 G/dL (31.0-37.0); MEAN CORPUSCULAR VOLUME 81 fL (80-100); MONOCYTES # (AUTO) 0.6 K/uL (0.1-1.0); MONOCYTES % (AUTO) 7.7 % (2.0-9.0); NEUTROPHILS # (AUTO) 5.6 K/uL (1.8-7.7); PLATELET COUNT (AUTO) 122 K/uL (150-450); RED BLOOD CELL COUNT(AUTO) 4.51 MIL/uL (4.50-5.90); RED CELL DISTRIBUTION WIDTH 25.6 % (11.5-14.5)
[2017-04-27 14:26] LABS: ALBUMIN 2.5 g/dL (3.4-5.0); BILIRUBIN,TOTAL 5.6 mg/dL (0.1-1.0); CALCIUM, TOTAL 8.2 mg/dL (8.8-10.5); CREATININE 1.89 mg/dL (0.60-1.30); TOTAL PROTEIN, SERUM 7.5 g/dL (6.4-8.2)
[2017-04-27 16:12] VITALS: BP 134/71
[2017-04-27 20:15] VITALS: BP 122/75
[2017-04-28] VITALS (8 sets, daily range): BP systolic 105–126; BP diastolic 58–77
[2017-04-28] MEDS: MORPHINE SULFATE 2 MG/ML SYRINGE IVP PRN (00:18)
[2017-04-28] MEDS: METOPROLOL TARTRATE 25 MG TABLET PO SCH ×2 (07:54→20:15)
[2017-04-28] MEDS: ASPIRIN 81 MG CHEWABLE TABLET PO SCH (07:54)
[2017-04-28] MEDS: PANTOPRAZOLE SODIUM 40 MG DR TABLET PO SCH (07:54)
[2017-04-28] MEDS: DOCUSATE SODIUM 100 MG CAPSULE PO SCH ×2 (07:54→20:15)
[2017-04-28] MEDS: OxyCODONE HCL/ACETAMINOPHEN 5-325 MG TABLET PO PRN ×2 (07:54→18:23)
[2017-04-28] MEDS: BUMETANIDE 0.25 MG/ML 10 ML VIAL IVP SCH ×2 (07:55→20:16)
[2017-04-28 07:56] LABS: BASOPHILS % (AUTO) 0.1 % (0.0-2.0); EOSINOPHILS % (AUTO) 1.82 % (1.0-6.0); HEMATOCRIT 38.4 % (41-53); HEMOGLOBIN 12.2 g/dL (13.5-17.5); LYMPHOCYTES # (AUTO) 0.7 K/uL (1.0-4.8); LYMPHOCYTES % (AUTO) 13.5 % (22.0-44.0); MEAN CORPUSCULAR HEMOGLOBIN 26.4 pg (26.0-34.0); MEAN CORPUSCULAR HGB CONC 31.9 G/dL (31.0-37.0); MEAN CORPUSCULAR VOLUME 83 fL (80-100); MONOCYTES # (AUTO) 0.5 K/uL (0.1-1.0); MONOCYTES % (AUTO) 8.9 % (2.0-9.0); NEUTROPHILS # (AUTO) 4.1 K/uL (1.8-7.7); NEUTROPHILS % (AUTO) 75.7 % (40.0-70.0); PLATELET COUNT (AUTO) 123 K/uL (150-450); RED BLOOD CELL COUNT(AUTO) 4.64 MIL/uL (4.50-5.90); RED CELL DISTRIBUTION WIDTH 25.9 % (11.5-14.5)
[2017-04-28 08:32] LABS: ALBUMIN 2.6 g/dL (3.4-5.0); CALCIUM, TOTAL 8.6 mg/dL (8.8-10.5); CREATININE 1.56 mg/dL (0.60-1.30); MAGNESIUM 1.7 mg/dL (1.80-2.40); PHOSPHORUS 2.6 mg/dL (2.5-4.9); POTASSIUM 4.2 mmol/L (3.5-5.1); TOTAL PROTEIN, SERUM 7.7 g/dL (6.4-8.2)
[2017-04-29 04:19] VITALS: BP 106/70
[2017-04-29 07:24] VITALS: BP 107/72
[2017-04-29] MEDS: DOCUSATE SODIUM 100 MG CAPSULE PO SCH ×2 (08:51→21:00)
[2017-04-29] MEDS: PANTOPRAZOLE SODIUM 40 MG DR TABLET PO SCH (08:51)
[2017-04-29] MEDS: BUMETANIDE 0.25 MG/ML 10 ML VIAL IVP SCH ×2 (08:51→21:00)
[2017-04-29] MEDS: ASPIRIN 81 MG CHEWABLE TABLET PO SCH (08:51)
[2017-04-29] MEDS: MORPHINE SULFATE 2 MG/ML SYRINGE IVP PRN (08:51)
[2017-04-29] MEDS: METOPROLOL TARTRATE 25 MG TABLET PO SCH ×2 (08:51→21:43)
[2017-04-29 11:21] VITALS: BP 124/74
[2017-04-29 15:45] VITALS: BP 116/58
[2017-04-29] MEDS: MAGNESIUM SULFATE 3 GM in DEXTROSE 5%-WATER 100 ML IV ONE ×2 (16:15→17:19)
[2017-04-29 19:37] VITALS: BP 108/71
[2017-04-29] MEDS ORDERED: BUME1TAB17 PO (21:04)
[2017-04-29] MEDS ORDERED: MAGNESIUM OXIDE 400 MG TABLET PO ONE (21:15)
[2017-04-29] MEDS: OxyCODONE HCL/ACETAMINOPHEN 5-325 MG TABLET PO PRN (21:58)
[2017-04-29 23:20] VITALS: BP 104/70
[2017-04-30] MEDS ORDERED: MAGNESIUM OXIDE 400 MG TABLET PO ONE (04:00)
[2017-04-30 04:27] VITALS: BP 106/76
[2017-04-30] MEDS: OxyCODONE HCL/ACETAMINOPHEN 5-325 MG TABLET PO PRN (06:52)
[2017-04-30 06:59] VITALS: BP 109/81
[2017-04-30] MEDS: ASPIRIN 81 MG CHEWABLE TABLET PO SCH (08:46)
[2017-04-30] MEDS: PANTOPRAZOLE SODIUM 40 MG DR TABLET PO SCH (08:46)
[2017-04-30] MEDS: DOCUSATE SODIUM 100 MG CAPSULE PO SCH (08:46)
[2017-04-30] MEDS: METOPROLOL TARTRATE 25 MG TABLET PO SCH (08:46)
[2017-04-30] MEDS: BUMETANIDE 0.25 MG/ML 10 ML VIAL IVP SCH (08:50)
[2017-04-30 11:33] VITALS: BP 112/75
== END 2017-04-30 12:00 | disposition home or self-care (01) | DRG 194 ==
LOC: EMS 13:35 → 5N 04-24 01:57
PROVIDERS: ADMIT Internal Medicine; ATTEND Internal Medicine
DX: I13.0 Hypertensive heart and chronic kidney disease with heart failure and stage 1 through stage 4 chronic kidney disease, or unspecified chronic kidney disease (principal); R57.0 Cardiogenic shock; I47.2 Ventricular tachycardia; N17.9 Acute kidney failure, unspecified; N18.3 Chronic kidney disease, stage 3 (moderate); I42.9 Cardiomyopathy, unspecified; K74.60 Unspecified cirrhosis of liver; I50.23 Acute on chronic systolic (congestive) heart failure; E87.5 Hyperkalemia; E87.1 Hypo-osmolality and hyponatremia; F19.10 Other psychoactive substance abuse, uncomplicated; I48.91 Unspecified atrial fibrillation; H40.9 Unspecified glaucoma; F17.210 Nicotine dependence, cigarettes, uncomplicated; F14.10 Cocaine abuse, uncomplicated; Z95.810 Presence of automatic (implantable) cardiac defibrillator; Z79.82 Long term (current) use of aspirin; Z91.19 Patient's noncompliance with other medical treatment and regimen; Z79.899 Other long term (current) drug therapy
CPT/HCPCS: 76705; 80307; 82247; 82248; 82533; 82570; 83735; 83935; 84100; 84132; 84133; 84156; 84300; 84443; 84540; 93005; 93306; 96374; 96375; 96376; 99285; J1250; J1644; J1940; J2270; J2405; J3475; J3490; J7060

== ENCOUNTER 2017-05-09 15:53 | Inpatient (IN) | payer OTHER ==
[~2017-05-09] VITALS: Ht 175.3 cm; Wt 95.7 kg
[2017-05-09] MEDS ORDERED: FUROSEMIDE 40 MG/4 ML VIAL IVP ONE (17:45)
[2017-05-09] MEDS ORDERED: BUMETANIDE 0.25 MG/ML 4 ML VIAL IVP ONE (17:45)
[2017-05-09 18:20] LABS: BASOPHILS % (AUTO) 0.4 % (0.0-2.0); EOSINOPHILS % (AUTO) 0 % (1.0-6.0); HEMATOCRIT 41.1 % (41-53); HEMOGLOBIN 13.2 g/dL (13.5-17.5); LYMPHOCYTES # (AUTO) 0.5 K/uL (1.0-4.8); MEAN CORPUSCULAR HEMOGLOBIN 26.5 pg (26.0-34.0); MEAN CORPUSCULAR HGB CONC 32.1 G/dL (31.0-37.0); MEAN CORPUSCULAR VOLUME 83 fL (80-100); MONOCYTES # (AUTO) 0.7 K/uL (0.1-1.0); MONOCYTES % (AUTO) 5.3 % (2.0-9.0); NEUTROPHILS # (AUTO) 11.6 K/uL (1.8-7.7); PLATELET COUNT (AUTO) 195 K/uL (150-450); RED BLOOD CELL COUNT(AUTO) 4.97 MIL/uL (4.50-5.90); RED CELL DISTRIBUTION WIDTH 25.3 % (11.5-14.5)
[2017-05-09 18:25] LABS: NEUTROPHILS % (AUTO) 90.3 % (40.0-70.0)
[2017-05-09 18:39] LABS: BILIRUBIN,TOTAL 9.2 mg/dL (0.1-1.0); CALCIUM, TOTAL 9.9 mg/dL (8.8-10.5); CREATININE 5.14 mg/dL (0.60-1.30); TOTAL PROTEIN, SERUM 8.7 g/dL (6.4-8.2)
[2017-05-09] MEDS ORDERED: DEXTROSE 50%-WATER 25 GM/50 ML SYRINGE IVP ONE (18:45)
[2017-05-09 18:46] LABS: PLATELET MORPHOLOGY COMMENT GIANT PLTS PRESENT
[2017-05-09 18:53] LABS: GLUCOSE,POINT OF CARE 17 MG/DL (70-110)
[2017-05-09 19:32] LABS: GLUCOSE,POINT OF CARE 92 MG/DL (70-110)
[2017-05-09 20:24] LABS: AMPHET/METH SCREEN,URINE NEGATIVE (NEGATIVE); BARBITURATE SCREEN, URINE NEGATIVE (NEGATIVE); BENZODIAZEPINES SCREEN,URINE NEGATIVE (NEGATIVE); CANNABINOID SCREEN,URINE NEGATIVE (NEGATIVE); COCAINE SCREEN,URINE POSITIVE (NEGATIVE); METHADONE SCREEN, URINE NEGATIVE (NEGATIVE); OPIATE SCREEN,URINE POSITIVE (NEGATIVE)
[2017-05-09 20:26] LABS: PHENCYCLIDINE SCREEN,URINE NEGATIVE (NEGATIVE)
[2017-05-09 20:33] LABS: APPEARANCE,URINE CLOUDY (CLEAR); GLUCOSE, URINE (UA) NEGATIVE (NEGATIVE); KETONES,URINE TRACE mg/dL (NEGATIVE); LEUKOCYTE ESTERASE ,URINE SMALL (NEGATIVE); NITRATE,URINE POSITIVE (NEGATIVE); OCCULT BLOOD,URINE NEGATIVE (NEGATIVE); PROTEIN,URINE POS 1+ (NEGATIVE)
[2017-05-09 20:43] LABS: BILIRUBIN,URINE PRELIM. POSITIVE (NEGATIVE)
[2017-05-09 20:44] LABS: BACTERIA,URINE None Seen /HPF (None Seen); RBC,URINE None Seen /HPF (0-2); SQUAMOUS EPITHELIAL CELL,UR Moderate /LPF (None Seen)
[2017-05-09 20:48] LABS: GLUCOSE,POINT OF CARE 148 MG/DL (70-110)
[2017-05-09] MEDS ORDERED: 0.9% SODIUM CHLORIDE 10 ML SYRINGE IVP PRN (21:00)
[2017-05-09] MEDS ORDERED: ACETAMINOPHEN 325 MG TABLET PO PRN (21:00)
[2017-05-09] MEDS ORDERED: ONDANSETRON HCL 4 MG/2 ML VIAL IVP PRN (21:00)
[2017-05-09] MEDS ORDERED: ALBUTEROL SULFATE 2.5 MG/0.5 ML NEB SOLUTION NEB PRN (21:30)
[2017-05-09] MEDS ORDERED: BISACODYL 10 MG RECTAL RECTAL SUPPOSITORY PR PRN (21:30)
[2017-05-09] MEDS: CefTRIAXone 1 GM/DEXTROSE 50 ML IV SCH (21:43)
[2017-05-09] MEDS ORDERED: DiphenhydrAMINE HCL 50 MG/ML VIAL IVP ONE (21:45)
[2017-05-09 22:48] LABS: INR 1.9 (0.9-1.1); PROTHROMBIN TIME 20.5 SEC (9.4-11.6)
[2017-05-09 23:02] LABS: GLUCOSE,POINT OF CARE 150 MG/DL (70-110)
[2017-05-10] VITALS (20 sets, daily range): BP systolic 94–147; BP diastolic 62–98
[2017-05-10] MEDS: ACETAMINOPHEN 325 MG TABLET PO PRN (03:04)
[2017-05-10 06:28] LABS: EOSINOPHILS % (AUTO) 0.5 % (1.0-6.0); HEMATOCRIT 37.3 % (41-53); HEMOGLOBIN 12.3 g/dL (13.5-17.5); LYMPHOCYTES # (AUTO) 0.7 K/uL (1.0-4.8); LYMPHOCYTES % (AUTO) 8.3 % (22.0-44.0); MEAN CORPUSCULAR HEMOGLOBIN 26.8 pg (26.0-34.0); MEAN CORPUSCULAR HGB CONC 32.9 G/dL (31.0-37.0); MEAN CORPUSCULAR VOLUME 82 fL (80-100); MONOCYTES # (AUTO) 0.9 K/uL (0.1-1.0); MONOCYTES % (AUTO) 10.7 % (2.0-9.0); NEUTROPHILS # (AUTO) 6.8 K/uL (1.8-7.7); NEUTROPHILS % (AUTO) 79.5 % (40.0-70.0); PLATELET COUNT (AUTO) 154 K/uL (150-450); RED BLOOD CELL COUNT(AUTO) 4.57 MIL/uL (4.50-5.90); RED CELL DISTRIBUTION WIDTH 25.6 % (11.5-14.5)
[2017-05-10 07:04] LABS: ALBUMIN 2.8 g/dL (3.4-5.0); BILIRUBIN,TOTAL 8.1 mg/dL (0.1-1.0); CREATININE 5.32 mg/dL (0.60-1.30); POTASSIUM 4.7 mmol/L (3.5-5.1); TOTAL PROTEIN, SERUM 8.1 g/dL (6.4-8.2)
[2017-05-10 07:17] LABS: PLATELET MORPHOLOGY COMMENT GIANT PLTS PRESENT
[2017-05-10] MEDS ORDERED: INFLUENZA VIRUS VACCINE QVS 2017-18 (3YR+)/PF 60 MCG/0.5 ML SYRINGE IM ONE (07:45)
[2017-05-10] MEDS ORDERED: FUROSEMIDE 40 MG/4 ML VIAL IVP SCH (09:00)
[2017-05-10] MEDS: PANTOPRAZOLE SODIUM 40 MG DR TABLET PO SCH (09:00)
[2017-05-10] MEDS: DOCUSATE SODIUM 100 MG CAPSULE PO SCH ×2 (09:00→22:23)
[2017-05-10] MEDS: BUMETANIDE 0.25 MG/ML 4 ML VIAL IVP SCH ×3 (09:03→22:16)
[2017-05-10 09:56] LABS: MAGNESIUM 2.3 mg/dL (1.80-2.40)
[2017-05-10] MEDS ORDERED: BUMETANIDE 0.25 MG/ML 10 ML VIAL IVP SCH (21:00)
[2017-05-10] MEDS: GuaiFENesin/D-METHORPHAN [SUGAR-FREE] 200-20MG/10 ML SYRUP UDCUP PO PRN (22:15)
[2017-05-10] MEDS ORDERED: SODIUM CHLORIDE 0.9% 250 ML IV ONE (22:25)
[2017-05-10] MEDS: CefTRIAXone 1 GM/DEXTROSE 50 ML IV SCH (23:06)
[2017-05-11] VITALS (22 sets, daily range): BP systolic 109–138; BP diastolic 67–98
[2017-05-11 07:31] LABS: BASOPHILS % (AUTO) 0.4 % (0.0-2.0); HEMOGLOBIN 11.6 g/dL (13.5-17.5); LYMPHOCYTES # (AUTO) 0.4 K/uL (1.0-4.8); LYMPHOCYTES % (AUTO) 5.7 % (22.0-44.0); MEAN CORPUSCULAR HEMOGLOBIN 26.7 pg (26.0-34.0); MEAN CORPUSCULAR HGB CONC 32.2 G/dL (31.0-37.0); MEAN CORPUSCULAR VOLUME 83 fL (80-100); MONOCYTES # (AUTO) 0.6 K/uL (0.1-1.0); MONOCYTES % (AUTO) 9.6 % (2.0-9.0); NEUTROPHILS # (AUTO) 5.4 K/uL (1.8-7.7); NEUTROPHILS % (AUTO) 83.3 % (40.0-70.0); PLATELET COUNT (AUTO) 121 K/uL (150-450); RED BLOOD CELL COUNT(AUTO) 4.34 MIL/uL (4.50-5.90); RED CELL DISTRIBUTION WIDTH 25.2 % (11.5-14.5)
[2017-05-11 08:22] LABS: ALBUMIN 2.5 g/dL (3.4-5.0); BILIRUBIN,TOTAL 7.3 mg/dL (0.1-1.0); CALCIUM, TOTAL 8.6 mg/dL (8.8-10.5); CREATININE 4.55 mg/dL (0.60-1.30); MAGNESIUM 1.8 mg/dL (1.80-2.40); POTASSIUM 3.9 mmol/L (3.5-5.1); TOTAL PROTEIN, SERUM 7.3 g/dL (6.4-8.2)
[2017-05-11 09:10] LABS: PLATELET MORPHOLOGY COMMENT DECREASED
[2017-05-11] MEDS: BUMETANIDE 0.25 MG/ML 4 ML VIAL IVP SCH ×3 (10:43→21:58)
[2017-05-11] MEDS: PANTOPRAZOLE SODIUM 40 MG DR TABLET PO SCH (10:44)
[2017-05-11] MEDS: DOCUSATE SODIUM 100 MG CAPSULE PO SCH ×2 (10:45→21:00)
[2017-05-11] MEDS: CefTRIAXone 1 GM/DEXTROSE 50 ML IV SCH (22:59)
[2017-05-11] MEDS: GuaiFENesin/D-METHORPHAN [SUGAR-FREE] 200-20MG/10 ML SYRUP UDCUP PO PRN (23:51)
[2017-05-11] MEDS: ACETAMINOPHEN 325 MG TABLET PO PRN (23:52)
[2017-05-12] VITALS (10 sets, daily range): BP systolic 100–126; BP diastolic 58–74
[2017-05-12 07:46] LABS: BASOPHILS % (AUTO) 0.5 % (0.0-2.0); EOSINOPHILS % (AUTO) 1.2 % (1.0-6.0); HEMATOCRIT 36.4 % (41-53); HEMOGLOBIN 11.9 g/dL (13.5-17.5); LYMPHOCYTES # (AUTO) 0.6 K/uL (1.0-4.8); LYMPHOCYTES % (AUTO) 10.2 % (22.0-44.0); MEAN CORPUSCULAR HEMOGLOBIN 26.9 pg (26.0-34.0); MEAN CORPUSCULAR HGB CONC 32.7 G/dL (31.0-37.0); MEAN CORPUSCULAR VOLUME 82 fL (80-100); MONOCYTES # (AUTO) 0.6 K/uL (0.1-1.0); MONOCYTES % (AUTO) 11.1 % (2.0-9.0); NEUTROPHILS # (AUTO) 4.3 K/uL (1.8-7.7); PLATELET COUNT (AUTO) 106 K/uL (150-450); RED BLOOD CELL COUNT(AUTO) 4.42 MIL/uL (4.50-5.90); RED CELL DISTRIBUTION WIDTH 24.9 % (11.5-14.5)
[2017-05-12 08:31] LABS: ALBUMIN 2.5 g/dL (3.4-5.0); BILIRUBIN,TOTAL 7.4 mg/dL (0.1-1.0); CALCIUM, TOTAL 8.8 mg/dL (8.8-10.5); CREATININE 3.45 mg/dL (0.60-1.30); MAGNESIUM 1.6 mg/dL (1.80-2.40); POTASSIUM 3.5 mmol/L (3.5-5.1); TOTAL PROTEIN, SERUM 7.5 g/dL (6.4-8.2)
[2017-05-12] MEDS: DOCUSATE SODIUM 100 MG CAPSULE PO SCH ×2 (08:43→20:06)
[2017-05-12] MEDS: PANTOPRAZOLE SODIUM 40 MG DR TABLET PO SCH (08:43)
[2017-05-12] MEDS ORDERED: MAGNESIUM OXIDE 400 MG TABLET PO ONE (09:00)
[2017-05-12] MEDS ORDERED: POTASSIUM CHLORIDE 10 MEQ ER TABLET PO ONE (09:00)
[2017-05-12] MEDS: BUMETANIDE 0.25 MG/ML 4 ML VIAL IVP SCH ×3 (09:32→21:44)
[2017-05-12] MEDS: ACETAMINOPHEN 325 MG TABLET PO PRN ×2 (13:39→20:08)
[2017-05-12] MEDS: ONDANSETRON HCL 4 MG/2 ML VIAL IVP PRN ×2 (16:17→23:10)
[2017-05-12] MEDS: CefTRIAXone SODIUM 1 GM/VIAL IVP SCH (22:10)
[2017-05-13 04:18] VITALS: BP 113/68
[2017-05-13 06:28] LABS: BASOPHILS % (AUTO) 0.5 % (0.0-2.0); EOSINOPHILS % (AUTO) 1.9 % (1.0-6.0); HEMATOCRIT 35.5 % (41-53); HEMOGLOBIN 11.7 g/dL (13.5-17.5); LYMPHOCYTES # (AUTO) 0.5 K/uL (1.0-4.8); LYMPHOCYTES % (AUTO) 11.6 % (22.0-44.0); MEAN CORPUSCULAR HGB CONC 32.9 G/dL (31.0-37.0); MEAN CORPUSCULAR VOLUME 82 fL (80-100); MONOCYTES # (AUTO) 0.5 K/uL (0.1-1.0); MONOCYTES % (AUTO) 11.1 % (2.0-9.0); NEUTROPHILS # (AUTO) 3.4 K/uL (1.8-7.7); NEUTROPHILS % (AUTO) 74.9 % (40.0-70.0); PLATELET COUNT (AUTO) 104 K/uL (150-450); RED BLOOD CELL COUNT(AUTO) 4.33 MIL/uL (4.50-5.90)
[2017-05-13] MEDS: ACETAMINOPHEN 325 MG TABLET PO PRN ×2 (06:46→23:41)
[2017-05-13] MEDS: ONDANSETRON HCL 4 MG/2 ML VIAL IVP PRN ×2 (06:46→17:26)
[2017-05-13 07:06] LABS: ALBUMIN 2.4 g/dL (3.4-5.0); BILIRUBIN,TOTAL 7.3 mg/dL (0.1-1.0); CALCIUM, TOTAL 8.7 mg/dL (8.8-10.5); CREATININE 3.18 mg/dL (0.60-1.30); MAGNESIUM 1.5 mg/dL (1.80-2.40); POTASSIUM 3.8 mmol/L (3.5-5.1); TOTAL PROTEIN, SERUM 7.4 g/dL (6.4-8.2)
[2017-05-13 07:16] VITALS: BP 105/67
[2017-05-13] MEDS ORDERED: MORPHINE SULFATE 2 MG/ML SYRINGE IVP ONE (08:15)
[2017-05-13] MEDS: DOCUSATE SODIUM 100 MG CAPSULE PO SCH ×3 (08:45→21:09)
[2017-05-13] MEDS: PANTOPRAZOLE SODIUM 40 MG DR TABLET PO SCH (08:45)
[2017-05-13] MEDS: BUMETANIDE 0.25 MG/ML 4 ML VIAL IVP SCH ×3 (08:45→21:18)
[2017-05-13] MEDS: OXYGEN THERAPY IH SCH ×2 (08:46→21:08)
[2017-05-13 10:11] LABS: PLATELET MORPHOLOGY COMMENT LARGE PLTS PRESENT
[2017-05-13] MEDS ORDERED: MAGNESIUM SULFATE 2 GM in DEXTROSE 5%-WATER 50 ML IV ONE (14:15)
[2017-05-13 15:31] VITALS: BP 100/71
[2017-05-13] MEDS ORDERED: MAGNESIUM OXIDE 400 MG TABLET PO ONE ×2 (18:30→22:00)
[2017-05-13 19:46] VITALS: BP 121/66
[2017-05-13] MEDS: MUPIROCIN CALCIUM 2% 22 GM OINTMENT NASAL SCH (21:09)
[2017-05-13] MEDS: CefTRIAXone SODIUM 1 GM/VIAL IVP SCH (21:18)
[2017-05-14 00:03] VITALS: BP 124/84
[2017-05-14] MEDS ORDERED: MAGNESIUM OXIDE 400 MG TABLET PO ONE (02:00)
[2017-05-14 04:06] VITALS: BP 111/79
[2017-05-14] MEDS: ACETAMINOPHEN 325 MG TABLET PO PRN ×2 (05:43→20:16)
[2017-05-14] MEDS ORDERED: MORPHINE SULFATE 2 MG/ML SYRINGE IVP ONE (07:45)
[2017-05-14 07:50] VITALS: BP 122/77
[2017-05-14] MEDS: BUMETANIDE 0.25 MG/ML 4 ML VIAL IVP SCH ×3 (08:28→21:39)
[2017-05-14] MEDS: DOCUSATE SODIUM 100 MG CAPSULE PO SCH ×2 (08:28→20:16)
[2017-05-14] MEDS: PANTOPRAZOLE SODIUM 40 MG DR TABLET PO SCH (08:28)
[2017-05-14] MEDS: MUPIROCIN CALCIUM 2% 22 GM OINTMENT NASAL SCH ×2 (08:29→20:17)
[2017-05-14] MEDS: OXYGEN THERAPY IH SCH ×2 (08:30→20:15)
[2017-05-14 08:32] LABS: ALBUMIN 2.4 g/dL (3.4-5.0); BILIRUBIN,TOTAL 7.2 mg/dL (0.1-1.0); CALCIUM, TOTAL 8.6 mg/dL (8.8-10.5); CREATININE 2.76 mg/dL (0.60-1.30); MAGNESIUM 1.6 mg/dL (1.80-2.40); POTASSIUM 3.6 mmol/L (3.5-5.1); TOTAL PROTEIN, SERUM 7.3 g/dL (6.4-8.2)
[2017-05-14 08:34] LABS: BASOPHILS # (AUTO) 0.03 K/uL (0.00-0.20); BASOPHILS % (AUTO) 0.5 % (0.0-2.0); EOSINOPHILS # (AUTO) 0.07 K/uL (0.00-0.70); EOSINOPHILS % (AUTO) 1.23 % (1.0-6.0); HEMATOCRIT 36.7 % (41-53); HEMOGLOBIN 11.8 g/dL (13.5-17.5); LYMPHOCYTES # (AUTO) 0.6 K/uL (1.0-4.8); LYMPHOCYTES % (AUTO) 10.9 % (22.0-44.0); MEAN CORPUSCULAR HEMOGLOBIN 26.8 pg (26.0-34.0); MEAN CORPUSCULAR HGB CONC 32.2 G/dL (31.0-37.0); MEAN CORPUSCULAR VOLUME 83 fL (80-100); MONOCYTES # (AUTO) 0.7 K/uL (0.1-1.0); MONOCYTES % (AUTO) 12.1 % (2.0-9.0); NEUTROPHILS # (AUTO) 4.2 K/uL (1.8-7.7); NEUTROPHILS % (AUTO) 75.2 % (40.0-70.0); PLATELET COUNT (AUTO) 100 K/uL (150-450); RED BLOOD CELL COUNT(AUTO) 4.41 MIL/uL (4.50-5.90); RED CELL DISTRIBUTION WIDTH 24.9 % (11.5-14.5)
[2017-05-14 11:23] LABS: PLATELET MORPHOLOGY COMMENT GIANT PLTS PRESENT
[2017-05-14 12:06] VITALS: BP 116/69
[2017-05-14] MEDS ORDERED: MAGNESIUM SULFATE 2 GM in DEXTROSE 5%-WATER 50 ML IV ONE (15:15)
[2017-05-14 15:57] VITALS: BP 139/65
[2017-05-14 19:36] VITALS: BP 127/71
[2017-05-14] MEDS ORDERED: METOPROLOL TARTRATE 25 MG TABLET PO SCH (21:00)
[2017-05-14] MEDS: GuaiFENesin/D-METHORPHAN [SUGAR-FREE] 200-20MG/10 ML SYRUP UDCUP PO PRN (21:56)
[2017-05-14] MEDS ORDERED: CefTRIAXone SODIUM 1 GM in DEXTROSE 5%-WATER 10 ML IV SCH (22:00)
[2017-05-15 00:12] VITALS: BP 106/51
[2017-05-15 04:36] VITALS: BP 106/80
[2017-05-15 06:17] LABS: BASOPHILS # (AUTO) 0.01 K/uL (0.00-0.20); BASOPHILS % (AUTO) 0.2 % (0.0-2.0); EOSINOPHILS # (AUTO) 0.06 K/uL (0.00-0.70); EOSINOPHILS % (AUTO) 0.99 % (1.0-6.0); HEMATOCRIT 37.4 % (41-53); HEMOGLOBIN 12.3 g/dL (13.5-17.5); LYMPHOCYTES # (AUTO) 0.4 K/uL (1.0-4.8); LYMPHOCYTES % (AUTO) 6.8 % (22.0-44.0); MEAN CORPUSCULAR HEMOGLOBIN 26.7 pg (26.0-34.0); MEAN CORPUSCULAR HGB CONC 32.8 G/dL (31.0-37.0); MEAN CORPUSCULAR VOLUME 81 fL (80-100); MONOCYTES # (AUTO) 0.6 K/uL (0.1-1.0); MONOCYTES % (AUTO) 10.5 % (2.0-9.0); NEUTROPHILS # (AUTO) 4.9 K/uL (1.8-7.7); NEUTROPHILS % (AUTO) 81.5 % (40.0-70.0); PLATELET COUNT (AUTO) 114 K/uL (150-450); RED BLOOD CELL COUNT(AUTO) 4.59 MIL/uL (4.50-5.90)
[2017-05-15] MEDS: ACETAMINOPHEN 325 MG TABLET PO PRN (06:23)
[2017-05-15 06:37] LABS: ALBUMIN 2.5 g/dL (3.4-5.0); CREATININE 2.58 mg/dL (0.60-1.30); MAGNESIUM 1.6 mg/dL (1.80-2.40); TOTAL PROTEIN, SERUM 7.8 g/dL (6.4-8.2)
[2017-05-15 06:50] LABS: PLATELET MORPHOLOGY COMMENT GIANT PLTS PRESENT
[2017-05-15] MEDS ORDERED: MORPHINE SULFATE 2 MG/ML SYRINGE IVP PRN ×2 (07:45)
[2017-05-15] MEDS: OXYGEN THERAPY IH SCH (08:12)
[2017-05-15] MEDS: DOCUSATE SODIUM 100 MG CAPSULE PO SCH (08:13)
[2017-05-15] MEDS: PANTOPRAZOLE SODIUM 40 MG DR TABLET PO SCH (08:13)
[2017-05-15] MEDS: MUPIROCIN CALCIUM 2% 22 GM OINTMENT NASAL SCH (08:15)
[2017-05-15 08:34] VITALS: BP 147/78
[2017-05-15] MEDS ORDERED: LISINOPRIL 5 MG TABLET PO SCH (09:00)
[2017-05-15] MEDS ORDERED: METOPROLOL TARTRATE 25 MG TABLET PO SCH (09:00)
[2017-05-15] MEDS: BUMETANIDE 0.25 MG/ML 4 ML VIAL IVP SCH ×2 (09:24→16:54)
[2017-05-15 11:05] VITALS: BP 118/81
[2017-05-15 15:05] VITALS: BP 113/72
[2017-05-15 17:12] VITALS: BP 106/69
[2017-05-15] MEDS ORDERED: BUME1TAB17 PO (17:57)
[2017-05-15] MEDS ORDERED: METO25 PO (17:58)
[2017-05-15] MEDS ORDERED: LISI-660 PO (17:58)
[2017-05-15] MEDS ORDERED: DSS100 PO (17:58)
[2017-05-15] MEDS ORDERED: MUPI1OIN4 NS (17:59)
[2017-05-15] MEDS ORDERED: OXYGEN IH (18:00)
[2017-05-15] MEDS ORDERED: LORA1TAB3 PO (18:01)
[2017-05-15] MEDS ORDERED: MORP30CA17 PO (18:02)
[2017-05-15] MEDS ORDERED: ROXANOL PO (18:03)
[2017-05-15] MEDS ORDERED: MAGOX PO (18:04)
== END 2017-05-15 18:55 | disposition hospice, home (50) | DRG 194 ==
LOC: EMS 15:55 → AHU 05-10 01:00 → 5N 05-10 08:35 → 5S 05-13 19:00
PROVIDERS: ADMIT Internal Medicine; ATTEND Internal Medicine
DX: I13.0 Hypertensive heart and chronic kidney disease with heart failure and stage 1 through stage 4 chronic kidney disease, or unspecified chronic kidney disease (principal); N17.0 Acute kidney failure with tubular necrosis; D69.6 Thrombocytopenia, unspecified; N18.4 Chronic kidney disease, stage 4 (severe); E44.0 Moderate protein-calorie malnutrition; E87.1 Hypo-osmolality and hyponatremia; K74.60 Unspecified cirrhosis of liver; I50.23 Acute on chronic systolic (congestive) heart failure; I48.91 Unspecified atrial fibrillation; B19.20 Unspecified viral hepatitis C without hepatic coma; F11.10 Opioid abuse, uncomplicated; F14.10 Cocaine abuse, uncomplicated; G89.4 Chronic pain syndrome; H40.9 Unspecified glaucoma; I25.5 Ischemic cardiomyopathy; E16.2 Hypoglycemia, unspecified; F17.210 Nicotine dependence, cigarettes, uncomplicated; J44.9 Chronic obstructive pulmonary disease, unspecified; Z91.19 Patient's noncompliance with other medical treatment and regimen; Z71.6 Tobacco abuse counseling; Z79.82 Long term (current) use of aspirin; Z79.899 Other long term (current) drug therapy; Z95.810 Presence of automatic (implantable) cardiac defibrillator; Z68.31 Body mass index [BMI] 31.0-31.9, adult
CPT/HCPCS: 76705; 82105; 82962; 83735; 87081; 90471; 93005; 96374; 96375; 99285; 99406; J0696; J1200; J1250; J1940; J2270; J2405; J3475; J3490; J7050; J7060

== ENCOUNTER 2017-12-11 06:00 | Emergency (ER) | payer OTHER ==
[~2017-12-11] VITALS: Ht 177.8 cm; Wt 77.3 kg
[~2017-12-11 06:00] MED LIST changes: +DSS100 PO; +LISI-660 PO; +LORA1TAB3 PO; +MAGOX PO; +MORP30CA17 PO; +MUPI1OIN4 NS; +OXYGEN IH; +ROXANOL PO; -TRAM50TA4 PO
[2017-12-11] MEDS ORDERED: DIGO-44 PO (06:15)
[2017-12-11] MEDS ORDERED: CARV3 PO (06:16)
[2017-12-11 06:23] LABS: BASOPHILS % (AUTO) 1.2 % (0.0-2.0); EOSINOPHILS % (AUTO) 2.5 % (1.0-6.0); HEMATOCRIT 46.4 % (41-53); HEMOGLOBIN 15.6 g/dL (13.5-17.5); LYMPHOCYTES # (AUTO) 1.4 K/uL (1.0-4.8); LYMPHOCYTES % (AUTO) 29.2 % (22.0-44.0); MEAN CORPUSCULAR HEMOGLOBIN 30.1 pg (26.0-34.0); MEAN CORPUSCULAR HGB CONC 33.6 G/dL (31.0-37.0); MEAN CORPUSCULAR VOLUME 90 fL (80-100); MONOCYTES # (AUTO) 0.6 K/uL (0.1-1.0); MONOCYTES % (AUTO) 13.1 % (2.0-9.0); NEUTROPHILS # (AUTO) 2.7 K/uL (1.8-7.7); PLATELET COUNT (AUTO) 131 K/uL (150-450); RED BLOOD CELL COUNT(AUTO) 5.18 MIL/uL (4.50-5.90); RED CELL DISTRIBUTION WIDTH 19.8 % (11.5-14.5)
[2017-12-11 06:36] LABS: ANION GAP 9 mmol/L (8-16); CALCIUM, TOTAL 8.9 mg/dL (8.8-10.5); CARBON DIOXIDE 23 mmol/L (22-29); CHLORIDE 105 mmol/L (98-107); CREATININE 1.83 mg/dL (0.60-1.30); GLOMERULAR FILTR. RATE CALC 47 mL/min (>60); GLUCOSE,RANDOM 104 mg/dL (70-110); POTASSIUM 4.7 mmol/L (3.5-5.1); SODIUM SERUM 137 mmol/L (136-145); UREA NITROGEN, BLOOD 28 mg/dL (7-18)
[2017-12-11 06:41] LABS: ALANINE AMINOTRANSFERASE 35 U/L (12-78); ALBUMIN 3.7 g/dL (3.4-5.0); ALKALINE PHOSPHATASE 199 U/L (46-116); ASPARTATE AMINOTRANSFERASE 43 U/L (15-37); LIPASE 134 U/L (73-393); TOTAL PROTEIN, SERUM 8.4 g/dL (6.4-8.2)
[2017-12-11 07:00] VITALS: BP 117/86
[2017-12-11] MEDS ORDERED: ONDANSETRON HCL 4 MG/2 ML VIAL IVP ONE (07:30)
[2017-12-11] MEDS ORDERED: MORPHINE SULFATE 4 MG/ML SYRINGE IVP ONE (07:30)
[2017-12-11 08:03] LABS: DIGOXIN < 0.20 ng/mL (0.90-2.00)
== END 2017-12-11 11:44 | disposition home or self-care (01) ==
LOC: EMS 06:01
DX: K80.20 Calculus of gallbladder without cholecystitis without obstruction (principal); R79.89 Other specified abnormal findings of blood chemistry; I48.91 Unspecified atrial fibrillation; I11.0 Hypertensive heart disease with heart failure; I50.9 Heart failure, unspecified; F17.210 Nicotine dependence, cigarettes, uncomplicated; F14.90 Cocaine use, unspecified, uncomplicated; Z95.0 Presence of cardiac pacemaker; Z79.899 Other long term (current) drug therapy
CPT/HCPCS: 36415; 76705; 80053; 80162; 83690; 84484; 85025; 93005; 96374; 96375; 99285; J2270; J2405

== ENCOUNTER 2018-05-13 15:07 | Inpatient (IN) | payer OTHER ==
[~2018-05-13] VITALS: Ht 172.7 cm; Wt 83.4 kg
[~2018-05-13 15:07] MED LIST changes: -ALLO100T PO; -ALPR0.255 PO; +ALPR0.5T8 PO; -ASPI-1188 PO; +ASPI81 PO; +AUD NEB; +BISA10S PR; +CARV3 PO; -DSS100 PO; +HEPA500018 SQ; +HYDR-4061 PO; -LISI-660 PO; -LORA1TAB3 PO; -MAGOX PO; -METO25 PO; +MOM30 PO; -MORP30CA17 PO; -MUPI1OIN4 NS; -OXYGEN IH; -ROXANOL PO; -SPIR25 PO; +TUSSI5L PO; +VANC1FZ IV
[2018-05-13 15:35] LABS: BASOPHILS % (AUTO) 0.8 % (0.0-2.0); EOSINOPHILS % (AUTO) 0.3 % (1.0-6.0); HEMATOCRIT 42.5 % (41-53); HEMOGLOBIN 13.6 g/dL (13.5-17.5); LYMPHOCYTES # (AUTO) 0.5 K/uL (1.0-4.8); MEAN CORPUSCULAR HEMOGLOBIN 26.9 pg (26.0-34.0); MEAN CORPUSCULAR HGB CONC 32.1 G/dL (31.0-37.0); MEAN CORPUSCULAR VOLUME 84 fL (80-100); MONOCYTES # (AUTO) 0.6 K/uL (0.1-1.0); MONOCYTES % (AUTO) 6.1 % (2.0-9.0); NEUTROPHILS # (AUTO) 9.2 K/uL (1.8-7.7); PLATELET COUNT (AUTO) 209 K/uL (150-450); RED BLOOD CELL COUNT(AUTO) 5.08 MIL/uL (4.50-5.90); RED CELL DISTRIBUTION WIDTH 18.1 % (11.5-14.5)
[2018-05-13 15:36] LABS: NEUTROPHILS % (AUTO) 87.8 % (40.0-70.0)
[2018-05-13 15:44] LABS: CALCIUM, TOTAL 9.5 mg/dL (8.8-10.5); CREATININE 1.94 mg/dL (0.60-1.30); POTASSIUM 4.3 mmol/L (3.5-5.1)
[2018-05-13 15:50] LABS: ALBUMIN 3.3 g/dL (3.4-5.0); BILIRUBIN,TOTAL 5.5 mg/dL (0.1-1.0); TOTAL PROTEIN, SERUM 8.8 g/dL (6.4-8.2)
[2018-05-13 16:12] LABS: PLATELET MORPHOLOGY COMMENT NORMAL
[2018-05-13] MEDS ORDERED: MORPHINE SULFATE 2 MG/ML SYRINGE IVP ONE (19:45)
[2018-05-13] MEDS ORDERED: ONDANSETRON HCL 4 MG/2 ML VIAL IVP ONE (20:15)
[2018-05-13 20:45] LABS: INR 1.3 (0.9-1.1); PROTHROMBIN TIME 13.3 SEC (9.4-11.6)
[2018-05-13] MEDS ORDERED: MEBROFENIN TC99M/MCL ISOTOPE 1 EA INJ INJ ONE (21:30)
[2018-05-13 21:33] LABS: APPEARANCE,URINE CLOUDY (CLEAR); GLUCOSE, URINE (UA) NEGATIVE (NEGATIVE); KETONES,URINE TRACE mg/dL (NEGATIVE); LEUKOCYTE ESTERASE ,URINE SMALL (NEGATIVE); OCCULT BLOOD,URINE NEGATIVE (NEGATIVE); PROTEIN,URINE SEE CONFIRM (NEGATIVE)
[2018-05-13 21:36] LABS: BILIRUBIN,URINE PRELIM. POSITIVE (NEGATIVE)
[2018-05-13] MEDS ORDERED: MORPHINE SULFATE 4 MG/ML SYRINGE IVP ONE (21:45)
[2018-05-13 21:51] LABS: SULFOSALICYLIC ACID,URINE 3+ (Negative)
[2018-05-13 21:52] LABS: BACTERIA,URINE Many /HPF (None Seen); NITRATE,URINE POSITIVE (NEGATIVE); RBC,URINE 0-2 /HPF (0-2); SQUAMOUS EPITHELIAL CELL,UR Few /LPF (None Seen)
[2018-05-13 22:53] VITALS: BP 127/75
[2018-05-14] MEDS ORDERED: FentaNYL CITRATE-PF 100 MCG/2 ML VIAL IVP ONE (01:00)
[2018-05-14] MEDS ORDERED: 0.9% SODIUM CHLORIDE 10 ML SYRINGE IVP PRN ×2 (03:00→08:15)
[2018-05-14] MEDS ORDERED: PIPERACILLIN/TAZO 3.375 GM/D5W 50 ML IV ONE (03:00)
[2018-05-14] MEDS ORDERED: ONDANSETRON HCL 4 MG/2 ML VIAL IVP PRN (03:00)
[2018-05-14] MEDS ORDERED: ACETAMINOPHEN 325 MG TABLET PO PRN (03:00)
[2018-05-14] MEDS ORDERED: SODIUM CHLORIDE 0.9% 500 ML IV ONE (03:16)
[2018-05-14 04:23] VITALS: BP 120/80
[2018-05-14] MEDS ORDERED: PNEUMOCOCCAL VACCINE POLYVALENT 0.5 ML VIAL [PPSV23] IM ONE (04:30)
[2018-05-14 07:40] VITALS: BP 117/73
[2018-05-14] MEDS ORDERED: SODIUM CHLORIDE 0.9% 1,000 ML IV SCH (08:15)
[2018-05-14] MEDS: CARVEDILOL 3.125 MG TABLET PO SCH ×2 (08:43→19:52)
[2018-05-14] MEDS: ASPIRIN 81 MG CHEWABLE TABLET PO SCH (08:43)
[2018-05-14] MEDS: PANTOPRAZOLE SODIUM 40 MG/VIAL IVP SCH (08:43)
[2018-05-14] MEDS: BUMETANIDE 1 MG TABLET PO SCH ×3 (08:46→19:51)
[2018-05-14] MEDS: PIPERACILLIN/TAZO 3.375 GM/D5W 50 ML IV SCH ×3 (09:22→20:07)
[2018-05-14 12:05] VITALS: BP 99/69
[2018-05-14 16:01] VITALS: BP 94/56
[2018-05-14] MEDS: MORPHINE SULFATE 4 MG/ML SYRINGE IVP PRN (16:47)
[2018-05-14] MEDS: ALPRAZolam 0.5 MG TABLET PO PRN (18:00)
[2018-05-14 19:28] VITALS: BP 87/67
[2018-05-14] MEDS: ZOLPIDEM TARTRATE 5 MG TABLET PO PRN ×2 (20:07→20:50)
[2018-05-14 23:45] VITALS: BP 93/64
[2018-05-15] VITALS (13 sets, daily range): BP systolic 84–111; BP diastolic 58–75
[2018-05-15] MEDS: PIPERACILLIN/TAZO 3.375 GM/D5W 50 ML IV SCH ×2 (03:15→08:54)
[2018-05-15 06:09] LABS: BASOPHILS % (AUTO) 0.7 % (0.0-2.0); EOSINOPHILS % (AUTO) 2.2 % (1.0-6.0); HEMATOCRIT 36.4 % (41-53); LYMPHOCYTES # (AUTO) 0.7 K/uL (1.0-4.8); LYMPHOCYTES % (AUTO) 9.8 % (22.0-44.0); MEAN CORPUSCULAR HEMOGLOBIN 27.7 pg (26.0-34.0); MEAN CORPUSCULAR VOLUME 84 fL (80-100); MONOCYTES # (AUTO) 0.6 K/uL (0.1-1.0); MONOCYTES % (AUTO) 8.8 % (2.0-9.0); NEUTROPHILS # (AUTO) 5.8 K/uL (1.8-7.7); NEUTROPHILS % (AUTO) 78.5 % (40.0-70.0); PLATELET COUNT (AUTO) 161 K/uL (150-450); RED BLOOD CELL COUNT(AUTO) 4.34 MIL/uL (4.50-5.90); RED CELL DISTRIBUTION WIDTH 18.5 % (11.5-14.5)
[2018-05-15 06:23] LABS: CALCIUM, TOTAL 9.3 mg/dL (8.8-10.5); CREATININE 3.36 mg/dL (0.60-1.30); POTASSIUM 4.8 mmol/L (3.5-5.1)
[2018-05-15] MEDS: CARVEDILOL 3.125 MG TABLET PO SCH (08:46)
[2018-05-15] MEDS: PANTOPRAZOLE SODIUM 40 MG/VIAL IVP SCH (08:54)
[2018-05-15] MEDS: ASPIRIN 81 MG CHEWABLE TABLET PO SCH (08:54)
[2018-05-15] MEDS: BUMETANIDE 1 MG TABLET PO SCH ×3 (09:00→21:00)
[2018-05-15] MEDS: ALPRAZolam 0.5 MG TABLET PO PRN (10:47)
[2018-05-15] MEDS: PIPERACILLIN SODIUM/TAZOBACTAM 2.25 GM in DEXTROSE 5%-WATER 50 ML IV SCH ×2 (15:59→21:35)
[2018-05-15] MEDS ORDERED: DEXTROSE 5%-0.9% SODIUM CHL 1,000 ML IV SCH (16:44)
[2018-05-15] MEDS: MORPHINE SULFATE 4 MG/ML SYRINGE IVP PRN (20:33)
[2018-05-15] MEDS: ONDANSETRON HCL 4 MG/2 ML VIAL IVP PRN (20:38)
[2018-05-16 00:08] VITALS: BP 104/63
[2018-05-16] MEDS: PIPERACILLIN SODIUM/TAZOBACTAM 2.25 GM in DEXTROSE 5%-WATER 50 ML IV SCH ×4 (03:44→21:00)
[2018-05-16] MEDS: ONDANSETRON HCL 4 MG/2 ML VIAL IVP PRN ×2 (03:49→21:00)
[2018-05-16 04:33] VITALS: BP 115/85
[2018-05-16 06:14] LABS: BASOPHILS % (AUTO) 0.4 % (0.0-2.0); EOSINOPHILS % (AUTO) 2.3 % (1.0-6.0); HEMOGLOBIN 12.3 g/dL (13.5-17.5); LYMPHOCYTES # (AUTO) 0.5 K/uL (1.0-4.8); LYMPHOCYTES % (AUTO) 8.3 % (22.0-44.0); MEAN CORPUSCULAR HEMOGLOBIN 27.7 pg (26.0-34.0); MEAN CORPUSCULAR HGB CONC 33.1 G/dL (31.0-37.0); MEAN CORPUSCULAR VOLUME 84 fL (80-100); MONOCYTES # (AUTO) 0.5 K/uL (0.1-1.0); MONOCYTES % (AUTO) 9.1 % (2.0-9.0); NEUTROPHILS # (AUTO) 4.4 K/uL (1.8-7.7); NEUTROPHILS % (AUTO) 79.9 % (40.0-70.0); PLATELET COUNT (AUTO) 157 K/uL (150-450); RED BLOOD CELL COUNT(AUTO) 4.43 MIL/uL (4.50-5.90); RED CELL DISTRIBUTION WIDTH 18.2 % (11.5-14.5)
[2018-05-16 06:43] LABS: ALBUMIN 2.8 g/dL (3.4-5.0); BILIRUBIN,TOTAL 3.6 mg/dL (0.1-1.0); CALCIUM, TOTAL 8.5 mg/dL (8.8-10.5); CREATININE 2.68 mg/dL (0.60-1.30); MAGNESIUM 2.2 mg/dL (1.80-2.40); PHOSPHORUS 3.4 mg/dL (2.5-4.9); POTASSIUM 3.4 mmol/L (3.5-5.1); TOTAL PROTEIN, SERUM 7.7 g/dL (6.4-8.2)
[2018-05-16 07:38] LABS: CREATININE,URINE RANDOM 71.1 mg/dL (30.0-125.0); SODIUM,URINE RANDOM < 5 mmol/l (20-110)
[2018-05-16 07:49] LABS: AMPHET/METH SCREEN,URINE NEGATIVE (NEGATIVE); BARBITURATE SCREEN, URINE NEGATIVE (NEGATIVE); BENZODIAZEPINES SCREEN,URINE POSITIVE (NEGATIVE); CANNABINOID SCREEN,URINE NEGATIVE (NEGATIVE); COCAINE SCREEN,URINE POSITIVE (NEGATIVE); METHADONE SCREEN, URINE NEGATIVE (NEGATIVE); OPIATE SCREEN,URINE POSITIVE (NEGATIVE)
[2018-05-16] MEDS: PANTOPRAZOLE SODIUM 40 MG/VIAL IVP SCH (08:04)
[2018-05-16] MEDS: ASPIRIN 81 MG CHEWABLE TABLET PO SCH (08:05)
[2018-05-16] MEDS ORDERED: POTASSIUM CHLORIDE 10 MEQ ER TABLET PO ONE (08:30)
[2018-05-16 08:34] LABS: PHENCYCLIDINE SCREEN,URINE NEGATIVE (NEGATIVE)
[2018-05-16 09:05] VITALS: BP 132/78
[2018-05-16] MEDS: ALPRAZolam 0.5 MG TABLET PO PRN ×2 (10:43→21:36)
[2018-05-16 12:25] VITALS: BP 116/70
[2018-05-16] MEDS: BUMETANIDE 0.25 MG/ML 4 ML VIAL IVP SCH (13:18)
[2018-05-16 16:36] VITALS: BP 121/84
[2018-05-16 20:16] VITALS: BP 110/70
[2018-05-16] MEDS: MUPIROCIN CALCIUM 2% 22 GM OINTMENT NASAL SCH (21:00)
[2018-05-17] VITALS (7 sets, daily range): BP systolic 103–124; BP diastolic 72–84
[2018-05-17] MEDS ORDERED: SODIUM CHLORIDE 0.9% 250 ML IV ONE (01:35)
[2018-05-17] MEDS: PIPERACILLIN SODIUM/TAZOBACTAM 2.25 GM in DEXTROSE 5%-WATER 50 ML IV SCH ×4 (02:42→22:00)
[2018-05-17] MEDS: ONDANSETRON HCL 4 MG/2 ML VIAL IVP PRN ×2 (05:59→22:09)
[2018-05-17] MEDS: MORPHINE SULFATE 4 MG/ML SYRINGE IVP PRN ×2 (05:59→22:08)
[2018-05-17 06:09] LABS: BASOPHILS % (AUTO) 0.5 % (0.0-2.0); EOSINOPHILS % (AUTO) 2.2 % (1.0-6.0); HEMATOCRIT 38.4 % (41-53); HEMOGLOBIN 12.6 g/dL (13.5-17.5); LYMPHOCYTES # (AUTO) 0.5 K/uL (1.0-4.8); LYMPHOCYTES % (AUTO) 9.7 % (22.0-44.0); MEAN CORPUSCULAR HEMOGLOBIN 27.3 pg (26.0-34.0); MEAN CORPUSCULAR HGB CONC 32.7 G/dL (31.0-37.0); MEAN CORPUSCULAR VOLUME 84 fL (80-100); MONOCYTES # (AUTO) 0.6 K/uL (0.1-1.0); MONOCYTES % (AUTO) 10.1 % (2.0-9.0); NEUTROPHILS # (AUTO) 4.2 K/uL (1.8-7.7); NEUTROPHILS % (AUTO) 77.5 % (40.0-70.0); PLATELET COUNT (AUTO) 166 K/uL (150-450); RED CELL DISTRIBUTION WIDTH 18.8 % (11.5-14.5)
[2018-05-17 06:48] LABS: BILIRUBIN,TOTAL 3.9 mg/dL (0.1-1.0); CALCIUM, TOTAL 8.9 mg/dL (8.8-10.5); CREATININE 2.08 mg/dL (0.60-1.30); MAGNESIUM 2.2 mg/dL (1.80-2.40); PHOSPHORUS 2.9 mg/dL (2.5-4.9); POTASSIUM 3.5 mmol/L (3.5-5.1); TOTAL PROTEIN, SERUM 8.4 g/dL (6.4-8.2)
[2018-05-17] MEDS: PANTOPRAZOLE SODIUM 40 MG/VIAL IVP SCH (09:00)
[2018-05-17] MEDS: ASPIRIN 81 MG CHEWABLE TABLET PO SCH (09:01)
[2018-05-17] MEDS: MUPIROCIN CALCIUM 2% 22 GM OINTMENT NASAL SCH ×2 (09:01→22:00)
[2018-05-17] MEDS: BUMETANIDE 0.25 MG/ML 4 ML VIAL IVP SCH (12:34)
[2018-05-17] MEDS: ALPRAZolam 0.5 MG TABLET PO PRN (16:36)
[2018-05-18] MEDS: ALPRAZolam 0.5 MG TABLET PO PRN ×3 (01:02→20:56)
[2018-05-18] MEDS: PIPERACILLIN SODIUM/TAZOBACTAM 2.25 GM in DEXTROSE 5%-WATER 50 ML IV SCH ×2 (02:08→08:27)
[2018-05-18] MEDS ORDERED: SODIUM CHLORIDE 0.9% 250 ML IV ONE ×2 (02:44→21:47)
[2018-05-18 03:05] VITALS: BP 119/74
[2018-05-18 06:30] LABS: BASOPHILS % (AUTO) 0.8 % (0.0-2.0); EOSINOPHILS % (AUTO) 3.7 % (1.0-6.0); HEMATOCRIT 36.5 % (41-53); LYMPHOCYTES # (AUTO) 0.5 K/uL (1.0-4.8); LYMPHOCYTES % (AUTO) 11.4 % (22.0-44.0); MEAN CORPUSCULAR HEMOGLOBIN 27.7 pg (26.0-34.0); MEAN CORPUSCULAR HGB CONC 32.7 G/dL (31.0-37.0); MEAN CORPUSCULAR VOLUME 85 fL (80-100); MONOCYTES # (AUTO) 0.5 K/uL (0.1-1.0); MONOCYTES % (AUTO) 10.9 % (2.0-9.0); NEUTROPHILS # (AUTO) 3.5 K/uL (1.8-7.7); NEUTROPHILS % (AUTO) 73.2 % (40.0-70.0); PLATELET COUNT (AUTO) 128 K/uL (150-450); RED BLOOD CELL COUNT(AUTO) 4.32 MIL/uL (4.50-5.90); RED CELL DISTRIBUTION WIDTH 18.7 % (11.5-14.5)
[2018-05-18 06:49] LABS: CALCIUM, TOTAL 8.7 mg/dL (8.8-10.5); CREATININE 1.62 mg/dL (0.60-1.30); POTASSIUM 3.6 mmol/L (3.5-5.1)
[2018-05-18 08:26] VITALS: BP 126/75
[2018-05-18] MEDS: BUMETANIDE 0.25 MG/ML 4 ML VIAL IVP SCH (08:27)
[2018-05-18] MEDS: ASPIRIN 81 MG CHEWABLE TABLET PO SCH (08:27)
[2018-05-18] MEDS: MUPIROCIN CALCIUM 2% 22 GM OINTMENT NASAL SCH ×2 (08:28→20:56)
[2018-05-18] MEDS: PANTOPRAZOLE SODIUM 40 MG/VIAL IVP SCH (08:28)
[2018-05-18] MEDS: PIPERACILLIN/TAZO 3.375 GM/D5W 50 ML IV SCH ×2 (17:08→20:56)
[2018-05-18] MEDS: MORPHINE SULFATE 4 MG/ML SYRINGE IVP PRN (19:06)
[2018-05-18 19:32] VITALS: BP 105/71
[2018-05-18 23:41] VITALS: BP 111/76
[2018-05-19] MEDS: PIPERACILLIN/TAZO 3.375 GM/D5W 50 ML IV SCH ×4 (05:02→20:50)
[2018-05-19 05:14] VITALS: BP 118/74
[2018-05-19] MEDS: ONDANSETRON HCL 4 MG/2 ML VIAL IVP PRN (05:19)
[2018-05-19 06:11] LABS: CALCIUM, TOTAL 8.8 mg/dL (8.8-10.5); CREATININE 1.6 mg/dL (0.60-1.30); PHOSPHORUS 2.8 mg/dL (2.5-4.9); POTASSIUM 3.9 mmol/L (3.5-5.1)
[2018-05-19 08:05] VITALS: BP 117/81
[2018-05-19] MEDS: PANTOPRAZOLE SODIUM 40 MG/VIAL IVP SCH (08:58)
[2018-05-19] MEDS: BUMETANIDE 0.25 MG/ML 4 ML VIAL IVP SCH (08:58)
[2018-05-19] MEDS ORDERED: METOPROLOL SUCCINATE 25 MG ER TABLET PO SCH (09:00)
[2018-05-19] MEDS: ASPIRIN 81 MG CHEWABLE TABLET PO SCH (09:05)
[2018-05-19] MEDS: MUPIROCIN CALCIUM 2% 22 GM OINTMENT NASAL SCH ×2 (09:51→20:50)
[2018-05-19 11:03] VITALS: BP 114/71
[2018-05-19] MEDS: MORPHINE SULFATE 4 MG/ML SYRINGE IVP PRN ×2 (12:35→20:49)
[2018-05-19 15:07] VITALS: BP 116/75
[2018-05-19] MEDS: ALPRAZolam 0.5 MG TABLET PO PRN (17:37)
[2018-05-19 19:26] VITALS: BP 123/72
[2018-05-19 20:30] LABS: GLUCOMETER DEV NAME(LOC) 5N.1; GLUCOSE,POINT OF CARE 106 MG/DL (70-110)
[2018-05-20] VITALS (8 sets, daily range): BP systolic 93–115; BP diastolic 35–81
[2018-05-20 02:09] LABS: GLUCOMETER DEV NAME(LOC) 5N.1; GLUCOSE,POINT OF CARE 121 MG/DL (70-110)
[2018-05-20] MEDS: MORPHINE SULFATE 4 MG/ML SYRINGE IVP PRN (04:13)
[2018-05-20] MEDS: PIPERACILLIN/TAZO 3.375 GM/D5W 50 ML IV SCH ×4 (04:14→22:09)
[2018-05-20] MEDS: ALPRAZolam 0.5 MG TABLET PO PRN (04:14)
[2018-05-20 06:58] LABS: BASOPHILS % (AUTO) 0.6 % (0.0-2.0); HEMATOCRIT 40.3 % (41-53); HEMOGLOBIN 13.3 g/dL (13.5-17.5); MEAN CORPUSCULAR HEMOGLOBIN 27.6 pg (26.0-34.0); MEAN CORPUSCULAR HGB CONC 32.9 G/dL (31.0-37.0); MEAN CORPUSCULAR VOLUME 84 fL (80-100); MONOCYTES # (AUTO) 0.9 K/uL (0.1-1.0); MONOCYTES % (AUTO) 9.9 % (2.0-9.0); NEUTROPHILS # (AUTO) 6.8 K/uL (1.8-7.7); NEUTROPHILS % (AUTO) 77.5 % (40.0-70.0); PLATELET COUNT (AUTO) 152 K/uL (150-450); RED BLOOD CELL COUNT(AUTO) 4.81 MIL/uL (4.50-5.90); RED CELL DISTRIBUTION WIDTH 18.8 % (11.5-14.5)
[2018-05-20 07:12] LABS: ALBUMIN 3.1 g/dL (3.4-5.0); CALCIUM, TOTAL 9.4 mg/dL (8.8-10.5); CREATININE 2.15 mg/dL (0.60-1.30); MAGNESIUM 2.1 mg/dL (1.80-2.40); POTASSIUM 5.5 mmol/L (3.5-5.1); TOTAL PROTEIN, SERUM 8.6 g/dL (6.4-8.2)
[2018-05-20 07:53] LABS: PLATELET MORPHOLOGY COMMENT LARGE PLTS PRESENT
[2018-05-20] MEDS: PANTOPRAZOLE SODIUM 40 MG/VIAL IVP SCH (07:54)
[2018-05-20] MEDS: BUMETANIDE 0.25 MG/ML 4 ML VIAL IVP SCH (07:54)
[2018-05-20] MEDS ORDERED: SODIUM POLYSTYRENE SULFONATE 15 GM/60 ML SUSPENSION BOTTLE PO ONE (08:00)
[2018-05-20] MEDS ORDERED: SODIUM CHLORIDE 0.9% 250 ML IV ONE ×3 (08:33→23:53)
[2018-05-20] MEDS: ASPIRIN 81 MG CHEWABLE TABLET PO SCH (08:55)
[2018-05-20] MEDS: MUPIROCIN CALCIUM 2% 22 GM OINTMENT NASAL SCH ×2 (09:44→22:09)
[2018-05-20] MEDS ORDERED: BUMETANIDE 0.25 MG/ML 4 ML VIAL IVP ONE (10:15)
[2018-05-21] VITALS (7 sets, daily range): BP systolic 106–120; BP diastolic 59–80
[2018-05-21] MEDS: PIPERACILLIN/TAZO 3.375 GM/D5W 50 ML IV SCH ×4 (04:12→21:17)
[2018-05-21 05:23] LABS: BASOPHILS % (AUTO) 0.9 % (0.0-2.0); EOSINOPHILS % (AUTO) 2.1 % (1.0-6.0); HEMATOCRIT 37.5 % (41-53); HEMOGLOBIN 12.4 g/dL (13.5-17.5); LYMPHOCYTES # (AUTO) 0.6 K/uL (1.0-4.8); LYMPHOCYTES % (AUTO) 8.3 % (22.0-44.0); MEAN CORPUSCULAR HGB CONC 32.9 G/dL (31.0-37.0); MEAN CORPUSCULAR VOLUME 85 fL (80-100); MONOCYTES # (AUTO) 0.7 K/uL (0.1-1.0); MONOCYTES % (AUTO) 9.7 % (2.0-9.0); NEUTROPHILS # (AUTO) 5.9 K/uL (1.8-7.7); PLATELET COUNT (AUTO) 120 K/uL (150-450); RED BLOOD CELL COUNT(AUTO) 4.41 MIL/uL (4.50-5.90); RED CELL DISTRIBUTION WIDTH 18.9 % (11.5-14.5)
[2018-05-21 05:38] LABS: ALBUMIN 2.6 g/dL (3.4-5.0); BILIRUBIN,TOTAL 5.6 mg/dL (0.1-1.0); CALCIUM, TOTAL 8.7 mg/dL (8.8-10.5); CREATININE 2.35 mg/dL (0.60-1.30); MAGNESIUM 1.9 mg/dL (1.80-2.40); POTASSIUM 3.9 mmol/L (3.5-5.1); TOTAL PROTEIN, SERUM 7.4 g/dL (6.4-8.2)
[2018-05-21 05:47] LABS: TROPONIN I 0.14 ng/mL (0.00-0.05)
[2018-05-21 08:27] LABS: PLATELET MORPHOLOGY COMMENT GIANT PLTS PRESENT
[2018-05-21] MEDS: BUMETANIDE 0.25 MG/ML 4 ML VIAL IVP SCH (08:33)
[2018-05-21] MEDS: PANTOPRAZOLE SODIUM 40 MG/VIAL IVP SCH (08:33)
[2018-05-21] MEDS: MUPIROCIN CALCIUM 2% 22 GM OINTMENT NASAL SCH ×2 (08:33→21:16)
[2018-05-21] MEDS: ASPIRIN 81 MG CHEWABLE TABLET PO SCH (08:34)
[2018-05-22] MEDS: MORPHINE SULFATE 4 MG/ML SYRINGE IVP PRN ×2 (00:24→15:33)
[2018-05-22 03:45] VITALS: BP 117/61
[2018-05-22] MEDS: PIPERACILLIN/TAZO 3.375 GM/D5W 50 ML IV SCH ×4 (04:01→21:46)
[2018-05-22 08:10] VITALS: BP 123/84
[2018-05-22] MEDS: ONDANSETRON HCL 4 MG/2 ML VIAL IVP PRN (08:28)
[2018-05-22] MEDS: PANTOPRAZOLE SODIUM 40 MG/VIAL IVP SCH (08:28)
[2018-05-22] MEDS: ALPRAZolam 0.5 MG TABLET PO PRN (08:29)
[2018-05-22] MEDS: ASPIRIN 81 MG CHEWABLE TABLET PO SCH (08:29)
[2018-05-22] MEDS: BUMETANIDE 0.25 MG/ML 4 ML VIAL IVP SCH (08:29)
[2018-05-22] MEDS: MUPIROCIN CALCIUM 2% 22 GM OINTMENT NASAL SCH ×2 (08:30→21:00)
[2018-05-22 08:51] LABS: BASOPHILS % (AUTO) 0.9 % (0.0-2.0); EOSINOPHILS % (AUTO) 2.3 % (1.0-6.0); HEMATOCRIT 35.7 % (41-53); HEMOGLOBIN 11.8 g/dL (13.5-17.5); LYMPHOCYTES # (AUTO) 0.6 K/uL (1.0-4.8); LYMPHOCYTES % (AUTO) 9.6 % (22.0-44.0); MEAN CORPUSCULAR HEMOGLOBIN 27.6 pg (26.0-34.0); MEAN CORPUSCULAR HGB CONC 32.9 G/dL (31.0-37.0); MEAN CORPUSCULAR VOLUME 84 fL (80-100); MONOCYTES # (AUTO) 0.7 K/uL (0.1-1.0); MONOCYTES % (AUTO) 10.6 % (2.0-9.0); NEUTROPHILS % (AUTO) 76.6 % (40.0-70.0); PLATELET COUNT (AUTO) 103 K/uL (150-450); RED BLOOD CELL COUNT(AUTO) 4.27 MIL/uL (4.50-5.90); RED CELL DISTRIBUTION WIDTH 19.4 % (11.5-14.5)
[2018-05-22 09:06] LABS: ALBUMIN 2.4 g/dL (3.4-5.0); CALCIUM, TOTAL 8.3 mg/dL (8.8-10.5); CREATININE 1.6 mg/dL (0.60-1.30); MAGNESIUM 1.9 mg/dL (1.80-2.40); PHOSPHORUS 1.7 mg/dL (2.5-4.9); POTASSIUM 3.3 mmol/L (3.5-5.1); TOTAL PROTEIN, SERUM 7.5 g/dL (6.4-8.2)
[2018-05-22] MEDS ORDERED: SODIUM CHLORIDE 0.9% 500 ML IV ONE (11:15)
[2018-05-22] MEDS: POTASSIUM CHL 10 MEQ/WATER 50 ML IV SCH ×4 (11:16→21:29)
[2018-05-22 13:31] VITALS: BP 142/69
[2018-05-22 15:22] VITALS: BP 100/49
[2018-05-22 20:23] VITALS: BP 117/80
[2018-05-23] VITALS (7 sets, daily range): BP systolic 109–123; BP diastolic 68–85
[2018-05-23] MEDS: MORPHINE SULFATE 4 MG/ML SYRINGE IVP PRN ×2 (00:36→10:46)
[2018-05-23] MEDS: PIPERACILLIN/TAZO 3.375 GM/D5W 50 ML IV SCH ×4 (03:42→21:38)
[2018-05-23 04:30] LABS: ANION GAP 6 mmol/L (8-16); CARBON DIOXIDE 28 mmol/L (22-29); CHLORIDE 98 mmol/L (98-107); CREATININE 1.42 mg/dL (0.60-1.30); GLOMERULAR FILTR. RATE CALC > 60 mL/min (>60); GLUCOSE,RANDOM 126 mg/dL (70-110); PHOSPHORUS 1.8 mg/dL (2.5-4.9); POTASSIUM 3.3 mmol/L (3.5-5.1); SODIUM SERUM 132 mmol/L (136-145); UREA NITROGEN, BLOOD 23 mg/dL (7-18)
[2018-05-23] MEDS: PANTOPRAZOLE SODIUM 40 MG/VIAL IVP SCH (08:36)
[2018-05-23] MEDS: ALPRAZolam 0.5 MG TABLET PO PRN ×2 (08:36→21:39)
[2018-05-23] MEDS: MUPIROCIN CALCIUM 2% 22 GM OINTMENT NASAL SCH ×2 (08:37→21:38)
[2018-05-23] MEDS: BUMETANIDE 0.25 MG/ML 4 ML VIAL IVP SCH (08:42)
[2018-05-23] MEDS: ASPIRIN 81 MG CHEWABLE TABLET PO SCH (08:54)
[2018-05-23] MEDS ORDERED: POTASSIUM CHLORIDE 20 MEQ ER TABLET PO ONE (09:15)
[2018-05-23] MEDS ORDERED: MAGNESIUM SULFATE 2 GM in DEXTROSE 5%-WATER 50 ML IV ONE (10:00)
[2018-05-23] MEDS ORDERED: POTASSIUM PHOS,M-BASIC-D-BASIC 20 MEQ in DEXTROSE 5%-WATER 100 ML IV ONE (10:00)
[2018-05-23] MEDS ORDERED: MAGNESIUM SULFATE 4 GM/WATER 100 ML IV PRN (17:00)
[2018-05-23] MEDS ORDERED: MAGNESIUM OXIDE 400 MG TABLET PO PRN (17:00)
[2018-05-23] MEDS ORDERED: MAGNESIUM SULFATE 2 GM/WATER 50 ML IV PRN (17:00)
[2018-05-23 18:43] LABS: ALBUMIN 2.3 g/dL (3.4-5.0); MAGNESIUM 2.4 mg/dL (1.80-2.40); POTASSIUM 3.7 mmol/L (3.5-5.1)
[2018-05-24] VITALS (7 sets, daily range): BP systolic 105–127; BP diastolic 72–89
[2018-05-24] MEDS: MORPHINE SULFATE 4 MG/ML SYRINGE IVP PRN ×2 (02:45→15:47)
[2018-05-24] MEDS: PIPERACILLIN/TAZO 3.375 GM/D5W 50 ML IV SCH ×4 (04:05→22:07)
[2018-05-24 06:35] LABS: BASOPHILS % (AUTO) 0.8 % (0.0-2.0); EOSINOPHILS % (AUTO) 3.2 % (1.0-6.0); HEMATOCRIT 35.8 % (41-53); HEMOGLOBIN 11.7 g/dL (13.5-17.5); LYMPHOCYTES # (AUTO) 0.6 K/uL (1.0-4.8); LYMPHOCYTES % (AUTO) 10.2 % (22.0-44.0); MEAN CORPUSCULAR HEMOGLOBIN 26.9 pg (26.0-34.0); MEAN CORPUSCULAR HGB CONC 32.7 G/dL (31.0-37.0); MEAN CORPUSCULAR VOLUME 82 fL (80-100); MONOCYTES # (AUTO) 0.6 K/uL (0.1-1.0); MONOCYTES % (AUTO) 11.3 % (2.0-9.0); NEUTROPHILS # (AUTO) 4.2 K/uL (1.8-7.7); NEUTROPHILS % (AUTO) 74.5 % (40.0-70.0); PLATELET COUNT (AUTO) 115 K/uL (150-450); RED BLOOD CELL COUNT(AUTO) 4.36 MIL/uL (4.50-5.90); RED CELL DISTRIBUTION WIDTH 19.1 % (11.5-14.5)
[2018-05-24 07:23] LABS: ALANINE AMINOTRANSFERASE 50 U/L (12-78); ALBUMIN 2.3 g/dL (3.4-5.0); ALKALINE PHOSPHATASE 281 U/L (46-116); ANION GAP 8 mmol/L (8-16); ASPARTATE AMINOTRANSFERASE 71 U/L (15-37); BILIRUBIN,TOTAL 4.8 mg/dL (0.1-1.0); CALCIUM, TOTAL 8.4 mg/dL (8.8-10.5); CARBON DIOXIDE 29 mmol/L (22-29); CHLORIDE 99 mmol/L (98-107); CREATININE 1.16 mg/dL (0.60-1.30); GLOMERULAR FILTR. RATE CALC > 60 mL/min (>60); GLUCOSE,RANDOM 93 mg/dL (70-110); PHOSPHORUS 2.2 mg/dL (2.5-4.9); POTASSIUM 3.4 mmol/L (3.5-5.1); SODIUM SERUM 136 mmol/L (136-145); TOTAL PROTEIN, SERUM 7.5 g/dL (6.4-8.2); UREA NITROGEN, BLOOD 15 mg/dL (7-18)
[2018-05-24] MEDS: ASPIRIN 81 MG CHEWABLE TABLET PO SCH (09:00)
[2018-05-24] MEDS: POTASSIUM PHOS/SODIUM PHOS MIXTURE 1 POWDER PACKET PO SCH ×2 (09:35→20:31)
[2018-05-24] MEDS: POTASSIUM CHLORIDE 20 MEQ ER TABLET PO PRN (09:36)
[2018-05-24] MEDS: PANTOPRAZOLE SODIUM 40 MG/VIAL IVP SCH (09:36)
[2018-05-24] MEDS: BUMETANIDE 0.25 MG/ML 4 ML VIAL IVP SCH (09:36)
[2018-05-24] MEDS: ALPRAZolam 0.5 MG TABLET PO PRN ×2 (09:36→18:21)
[2018-05-24] MEDS: MUPIROCIN CALCIUM 2% 22 GM OINTMENT NASAL SCH ×2 (09:37→20:31)
[2018-05-24] MEDS ORDERED: SODIUM CHLORIDE 0.9% 500 ML IV ONE (09:52)
[2018-05-24] MEDS: POTASSIUM CHL 10 MEQ/WATER 50 ML IV PRN ×3 (14:12→18:22)
[2018-05-25] VITALS (7 sets, daily range): BP systolic 90–115; BP diastolic 51–84
[2018-05-25] MEDS: ALPRAZolam 0.5 MG TABLET PO PRN ×2 (02:34→20:42)
[2018-05-25] MEDS: PIPERACILLIN/TAZO 3.375 GM/D5W 50 ML IV SCH ×4 (03:50→21:46)
[2018-05-25] MEDS: MORPHINE SULFATE 4 MG/ML SYRINGE IVP PRN ×2 (04:41→23:41)
[2018-05-25] MEDS: BUMETANIDE 0.25 MG/ML 4 ML VIAL IVP SCH (08:51)
[2018-05-25] MEDS: PANTOPRAZOLE SODIUM 40 MG/VIAL IVP SCH (08:51)
[2018-05-25] MEDS: ASPIRIN 81 MG CHEWABLE TABLET PO SCH (08:51)
[2018-05-25] MEDS: MUPIROCIN CALCIUM 2% 22 GM OINTMENT NASAL SCH ×2 (08:51→20:14)
[2018-05-25] MEDS: POTASSIUM CHLORIDE 20 MEQ ER TABLET PO PRN (13:16)
[2018-05-26] MEDS: ONDANSETRON HCL 4 MG/2 ML VIAL IVP PRN (00:07)
[2018-05-26 04:08] VITALS: BP 99/74
[2018-05-26] MEDS: PIPERACILLIN/TAZO 3.375 GM/D5W 50 ML IV SCH ×4 (04:14→21:37)
[2018-05-26 06:03] LABS: BASOPHILS % (AUTO) 0.3 % (0.0-2.0); EOSINOPHILS % (AUTO) 0.1 % (1.0-6.0); HEMATOCRIT 40.4 % (41-53); HEMOGLOBIN 12.7 g/dL (13.5-17.5); LYMPHOCYTES # (AUTO) 0.5 K/uL (1.0-4.8); LYMPHOCYTES % (AUTO) 3.7 % (22.0-44.0); MEAN CORPUSCULAR HEMOGLOBIN 26.9 pg (26.0-34.0); MEAN CORPUSCULAR HGB CONC 31.5 G/dL (31.0-37.0); MEAN CORPUSCULAR VOLUME 85 fL (80-100); MONOCYTES # (AUTO) 1.1 K/uL (0.1-1.0); MONOCYTES % (AUTO) 7.9 % (2.0-9.0); NEUTROPHILS # (AUTO) 11.9 K/uL (1.8-7.7); PLATELET COUNT (AUTO) 169 K/uL (150-450); RED BLOOD CELL COUNT(AUTO) 4.74 MIL/uL (4.50-5.90); RED CELL DISTRIBUTION WIDTH 19.1 % (11.5-14.5)
[2018-05-26 06:53] LABS: ALBUMIN 2.7 g/dL (3.4-5.0); BILIRUBIN,TOTAL 9.6 mg/dL (0.1-1.0); CALCIUM, TOTAL 9.9 mg/dL (8.8-10.5); CREATININE 2.33 mg/dL (0.60-1.30); MAGNESIUM 2.4 mg/dL (1.80-2.40); PHOSPHORUS 5.9 mg/dL (2.5-4.9)
[2018-05-26 06:56] LABS: POTASSIUM 6.4 mmol/L (3.5-5.1)
[2018-05-26] MEDS ORDERED: SODIUM POLYSTYRENE SULFONATE 15 GM/60 ML SUSPENSION BOTTLE PO ONE (07:15)
[2018-05-26] MEDS ORDERED: CALCIUM GLUCONATE 100 MG/ML 10 ML IVP ONE (07:15)
[2018-05-26] MEDS ORDERED: SODIUM BICARBONATE [ADULT] 8.4% 50 MEQ/50 ML SYRINGE IVP ONE (07:15)
[2018-05-26] MEDS ORDERED: DEXTROSE 50%-WATER 25 GM/50 ML SYRINGE IVP ONE (07:15)
[2018-05-26 07:30] VITALS: BP 95/72
[2018-05-26] MEDS: PANTOPRAZOLE SODIUM 40 MG/VIAL IVP SCH (08:00)
[2018-05-26] MEDS: MUPIROCIN CALCIUM 2% 22 GM OINTMENT NASAL SCH (08:00)
[2018-05-26] MEDS: BUMETANIDE 0.25 MG/ML 4 ML VIAL IVP SCH (08:00)
[2018-05-26 08:04] LABS: GLUCOMETER DEV NAME(LOC) 5S.2; GLUCOSE,POINT OF CARE 29 MG/DL (70-110)
[2018-05-26 08:17] LABS: CALCIUM, TOTAL 9.7 mg/dL (8.8-10.5); CREATININE 2.32 mg/dL (0.60-1.30)
[2018-05-26 08:19] LABS: POTASSIUM 6.6 mmol/L (3.5-5.1)
[2018-05-26] MEDS: ASPIRIN 81 MG CHEWABLE TABLET PO SCH (08:21)
[2018-05-26 11:20] VITALS: BP 108/80
[2018-05-26 13:13] LABS: CALCIUM, TOTAL 9.5 mg/dL (8.8-10.5); CREATININE 2.32 mg/dL (0.60-1.30); POTASSIUM 5.6 mmol/L (3.5-5.1)
[2018-05-26 15:26] VITALS: BP 91/72
[2018-05-26 19:43] VITALS: BP 102/61
[2018-05-26 23:19] VITALS: BP 100/77
[2018-05-27 03:54] VITALS: BP 104/67
[2018-05-27] MEDS: PIPERACILLIN/TAZO 3.375 GM/D5W 50 ML IV SCH ×4 (04:07→21:38)
[2018-05-27 07:36] VITALS: BP 110/67
[2018-05-27] MEDS: ASPIRIN 81 MG CHEWABLE TABLET PO SCH (07:37)
[2018-05-27] MEDS: ALPRAZolam 0.5 MG TABLET PO PRN ×2 (07:38→17:33)
[2018-05-27] MEDS: PANTOPRAZOLE SODIUM 40 MG/VIAL IVP SCH (07:38)
[2018-05-27] MEDS: BUMETANIDE 0.25 MG/ML 4 ML VIAL IVP SCH (07:38)
[2018-05-27 07:39] LABS: CALCIUM, TOTAL 8.9 mg/dL (8.8-10.5); CREATININE 2.36 mg/dL (0.60-1.30); MAGNESIUM 2.2 mg/dL (1.80-2.40); POTASSIUM 3.8 mmol/L (3.5-5.1)
[2018-05-27] MEDS: MORPHINE SULFATE 4 MG/ML SYRINGE IVP PRN ×2 (08:11→22:07)
[2018-05-27] MEDS: METOPROLOL SUCCINATE 25 MG ER TABLET PO SCH ×3 (10:33→21:38)
[2018-05-27 11:30] VITALS: BP 105/72
[2018-05-27 15:29] VITALS: BP 96/72
[2018-05-27] MEDS: ONDANSETRON HCL 4 MG/2 ML VIAL IVP PRN (15:43)
[2018-05-27 19:55] VITALS: BP 107/55
[2018-05-27 23:16] VITALS: BP 108/72
[2018-05-28 03:23] VITALS: BP 106/79
[2018-05-28] MEDS: PIPERACILLIN/TAZO 3.375 GM/D5W 50 ML IV SCH ×2 (03:58→10:11)
[2018-05-28 07:16] LABS: CREATININE 1.96 mg/dL (0.60-1.30); MAGNESIUM 2.2 mg/dL (1.80-2.40); PHOSPHORUS 2.8 mg/dL (2.5-4.9); POTASSIUM 3.4 mmol/L (3.5-5.1)
[2018-05-28 07:56] VITALS: BP 104/76
[2018-05-28] MEDS ORDERED: POTASSIUM CHL 10 MEQ/WATER 50 ML IV ONE (08:15)
[2018-05-28] MEDS: BUMETANIDE 0.25 MG/ML 4 ML VIAL IVP SCH (08:26)
[2018-05-28] MEDS: ASPIRIN 81 MG CHEWABLE TABLET PO SCH (08:27)
[2018-05-28] MEDS: PANTOPRAZOLE SODIUM 40 MG/VIAL IVP SCH (08:27)
[2018-05-28] MEDS: METOPROLOL SUCCINATE 25 MG ER TABLET PO SCH ×2 (08:27→20:55)
[2018-05-28] MEDS ORDERED: SODIUM CHLORIDE 0.9% 500 ML IV ONE (09:31)
[2018-05-28] MEDS: ALPRAZolam 0.5 MG TABLET PO PRN ×2 (10:07→20:55)
[2018-05-28 12:00] VITALS: BP 104/58
[2018-05-28 16:02] VITALS: BP 107/73
[2018-05-28 19:53] VITALS: BP 116/79
[2018-05-28 22:09] LABS: GLUCOMETER DEV NAME(LOC) 5S.2; GLUCOSE,POINT OF CARE 120 MG/DL (70-110)
[2018-05-28 22:09] LABS: GLUCOMETER DEV NAME(LOC) 5S.2; GLUCOSE,POINT OF CARE 87 MG/DL (70-110)
[2018-05-29] VITALS (8 sets, daily range): BP systolic 88–112; BP diastolic 64–82
[2018-05-29] MEDS: MORPHINE SULFATE 4 MG/ML SYRINGE IVP PRN (05:11)
[2018-05-29 05:59] LABS: BASOPHILS % (AUTO) 0.7 % (0.0-2.0); HEMATOCRIT 38.5 % (41-53); HEMOGLOBIN 12.6 g/dL (13.5-17.5); LYMPHOCYTES # (AUTO) 0.9 K/uL (1.0-4.8); LYMPHOCYTES % (AUTO) 10.7 % (22.0-44.0); MEAN CORPUSCULAR HEMOGLOBIN 26.9 pg (26.0-34.0); MEAN CORPUSCULAR HGB CONC 32.7 G/dL (31.0-37.0); MEAN CORPUSCULAR VOLUME 82 fL (80-100); MONOCYTES # (AUTO) 0.8 K/uL (0.1-1.0); MONOCYTES % (AUTO) 9.2 % (2.0-9.0); NEUTROPHILS # (AUTO) 6.5 K/uL (1.8-7.7); NEUTROPHILS % (AUTO) 77.4 % (40.0-70.0); PLATELET COUNT (AUTO) 216 K/uL (150-450); RED BLOOD CELL COUNT(AUTO) 4.69 MIL/uL (4.50-5.90); RED CELL DISTRIBUTION WIDTH 19.7 % (11.5-14.5)
[2018-05-29 06:30] LABS: ALBUMIN 2.5 g/dL (3.4-5.0); BILIRUBIN,TOTAL 6.4 mg/dL (0.1-1.0); CALCIUM, TOTAL 9.3 mg/dL (8.8-10.5); CREATININE 2.23 mg/dL (0.60-1.30); MAGNESIUM 2.4 mg/dL (1.80-2.40); PHOSPHORUS 2.9 mg/dL (2.5-4.9); POTASSIUM 3.8 mmol/L (3.5-5.1); TOTAL PROTEIN, SERUM 8.4 g/dL (6.4-8.2)
[2018-05-29 07:45] LABS: PLATELET MORPHOLOGY COMMENT LARGE PLTS PRESENT
[2018-05-29] MEDS: METOPROLOL SUCCINATE 25 MG ER TABLET PO SCH ×2 (09:00→20:49)
[2018-05-29] MEDS: BUMETANIDE 0.25 MG/ML 4 ML VIAL IVP SCH (09:00)
[2018-05-29] MEDS: PANTOPRAZOLE SODIUM 40 MG/VIAL IVP SCH (09:35)
[2018-05-29] MEDS: ASPIRIN 81 MG CHEWABLE TABLET PO SCH (09:43)
[2018-05-29 15:19] LABS: GLUCOMETER DEV NAME(LOC) 5S.1; GLUCOSE,POINT OF CARE 98 MG/DL (70-110)
[2018-05-29] MEDS: ALPRAZolam 0.5 MG TABLET PO PRN (23:28)
[2018-05-30] MEDS: MORPHINE SULFATE 4 MG/ML SYRINGE IVP PRN (01:54)
[2018-05-30 03:55] VITALS: BP 110/79
[2018-05-30 07:51] LABS: BASOPHILS % (AUTO) 1.1 % (0.0-2.0); EOSINOPHILS % (AUTO) 2.4 % (1.0-6.0); HEMATOCRIT 37.6 % (41-53); HEMOGLOBIN 12.3 g/dL (13.5-17.5); LYMPHOCYTES % (AUTO) 14.4 % (22.0-44.0); MEAN CORPUSCULAR HEMOGLOBIN 26.9 pg (26.0-34.0); MEAN CORPUSCULAR HGB CONC 32.8 G/dL (31.0-37.0); MEAN CORPUSCULAR VOLUME 82 fL (80-100); MONOCYTES # (AUTO) 0.7 K/uL (0.1-1.0); NEUTROPHILS # (AUTO) 5.1 K/uL (1.8-7.7); NEUTROPHILS % (AUTO) 72.1 % (40.0-70.0); PLATELET COUNT (AUTO) 223 K/uL (150-450); RED BLOOD CELL COUNT(AUTO) 4.59 MIL/uL (4.50-5.90)
[2018-05-30 07:52] VITALS: BP 100/58
[2018-05-30 08:19] LABS: ALBUMIN 2.5 g/dL (3.4-5.0); BILIRUBIN,TOTAL 6.6 mg/dL (0.1-1.0); CALCIUM, TOTAL 9.4 mg/dL (8.8-10.5); CREATININE 2.57 mg/dL (0.60-1.30); MAGNESIUM 2.3 mg/dL (1.80-2.40); PHOSPHORUS 3.6 mg/dL (2.5-4.9); POTASSIUM 3.9 mmol/L (3.5-5.1); TOTAL PROTEIN, SERUM 8.5 g/dL (6.4-8.2)
[2018-05-30] MEDS: PANTOPRAZOLE SODIUM 40 MG/VIAL IVP SCH (09:00)
[2018-05-30] MEDS: ASPIRIN 81 MG CHEWABLE TABLET PO SCH (09:00)
[2018-05-30] MEDS: BUMETANIDE 0.25 MG/ML 4 ML VIAL IVP SCH ×2 (09:17→21:00)
[2018-05-30 11:40] VITALS: BP 104/62
[2018-05-30 15:16] VITALS: BP 108/61
[2018-05-30 20:30] VITALS: BP 96/75
[2018-05-30 23:12] VITALS: BP 96/65
[2018-05-31 04:54] VITALS: BP 95/66
[2018-05-31 07:41] LABS: BASOPHILS % (AUTO) 1.3 % (0.0-2.0); EOSINOPHILS % (AUTO) 2.4 % (1.0-6.0); HEMATOCRIT 35.9 % (41-53); HEMOGLOBIN 11.7 g/dL (13.5-17.5); LYMPHOCYTES # (AUTO) 0.7 K/uL (1.0-4.8); LYMPHOCYTES % (AUTO) 11.9 % (22.0-44.0); MEAN CORPUSCULAR HEMOGLOBIN 26.9 pg (26.0-34.0); MEAN CORPUSCULAR HGB CONC 32.6 G/dL (31.0-37.0); MEAN CORPUSCULAR VOLUME 83 fL (80-100); MONOCYTES # (AUTO) 0.7 K/uL (0.1-1.0); NEUTROPHILS # (AUTO) 4.5 K/uL (1.8-7.7); NEUTROPHILS % (AUTO) 72.4 % (40.0-70.0); PLATELET COUNT (AUTO) 182 K/uL (150-450); RED BLOOD CELL COUNT(AUTO) 4.36 MIL/uL (4.50-5.90); RED CELL DISTRIBUTION WIDTH 20.1 % (11.5-14.5)
[2018-05-31 07:53] LABS: ALBUMIN 2.4 g/dL (3.4-5.0); BILIRUBIN,TOTAL 6.1 mg/dL (0.1-1.0); CALCIUM, TOTAL 9.4 mg/dL (8.8-10.5); CREATININE 2.46 mg/dL (0.60-1.30); MAGNESIUM 2.4 mg/dL (1.80-2.40); POTASSIUM 3.9 mmol/L (3.5-5.1); TOTAL PROTEIN, SERUM 7.7 g/dL (6.4-8.2)
[2018-05-31] MEDS: ASPIRIN 81 MG CHEWABLE TABLET PO SCH (08:18)
[2018-05-31] MEDS: BUMETANIDE 0.25 MG/ML 4 ML VIAL IVP SCH (08:18)
[2018-05-31] MEDS: PANTOPRAZOLE SODIUM 40 MG/VIAL IVP SCH (08:19)
[2018-05-31 09:35] VITALS: BP 109/70
[2018-05-31] MEDS: ALPRAZolam 0.5 MG TABLET PO PRN (10:21)
[2018-05-31 11:10] VITALS: BP 121/78
[2018-05-31 15:05] VITALS: BP 103/72
== END 2018-05-31 16:55 ==
LOC: EMS 15:09 → 6N 20:30 → 5N 05-15 00:52 → ICU 05-20 12:25 → 5S 05-21 19:30
PROVIDERS: ADMIT Internal Medicine; ATTEND Internal Medicine
PROC: 05HY33Z Insertion of Infusion Device into Upper Vein, Percutaneous Approach (ICD-10-PCS; principal; 2018-05-21)
PROC: B54MZZA Ultrasonography of Right Upper Extremity Veins, Guidance (ICD-10-PCS; 2018-05-21)
DX: K80.00 Calculus of gallbladder with acute cholecystitis without obstruction (principal); J96.00 Acute respiratory failure, unspecified whether with hypoxia or hypercapnia; K72.00 Acute and subacute hepatic failure without coma; R57.0 Cardiogenic shock; I50.23 Acute on chronic systolic (congestive) heart failure; E83.39 Other disorders of phosphorus metabolism; I27.20 Pulmonary hypertension, unspecified; E86.0 Dehydration; I48.91 Unspecified atrial fibrillation; N17.9 Acute kidney failure, unspecified; E83.42 Hypomagnesemia; E87.5 Hyperkalemia; I42.9 Cardiomyopathy, unspecified; I13.0 Hypertensive heart and chronic kidney disease with heart failure and stage 1 through stage 4 chronic kidney disease, or unspecified chronic kidney disease; I25.10 Atherosclerotic heart disease of native coronary artery without angina pectoris; B19.20 Unspecified viral hepatitis C without hepatic coma; H40.9 Unspecified glaucoma; N18.9 Chronic kidney disease, unspecified; E87.6 Hypokalemia; F10.10 Alcohol abuse, uncomplicated; F14.10 Cocaine abuse, uncomplicated; J44.0 Chronic obstructive pulmonary disease with (acute) lower respiratory infection; K59.00 Constipation, unspecified; K74.60 Unspecified cirrhosis of liver; M10.9 Gout, unspecified; N39.0 Urinary tract infection, site not specified; Z79.82 Long term (current) use of aspirin; Z86.14 Personal history of Methicillin resistant Staphylococcus aureus infection; Z87.01 Personal history of pneumonia (recurrent); Z87.891 Personal history of nicotine dependence; Z91.19 Patient's noncompliance with other medical treatment and regimen; Z95.810 Presence of automatic (implantable) cardiac defibrillator; Z79.899 Other long term (current) drug therapy; Z28.21 Immunization not carried out because of patient refusal
CPT/HCPCS: 36245; 36569; 76705; 76770; 76937; 78226; 80307; 82570; 83735; 84100; 84132; 84300; 84540; 87081; 87086; 93005; 93306; 96374; 96375; 96376; 97110; 97163; 97530; A9537; C9113; G0378; J0610; J1250; J2270; J2405; J2543; J3010; J3475; J3480; J3490; J7030; J7040; J7042; J7050; J7060